=== PATIENT | female | born 1960 | race Caucasian/White ===

== ENCOUNTER 2024-02-15 13:48 | Inpatient (IN) | payer OTHER, MEDICAID ==
[~2024-02-15] VITALS: Ht 91.4 cm; Wt 80.0 kg
[2024-02-15] MEDS: SODIUM CHLORIDE 0.9% 1,000 ML IV ONE (14:30)
--- NOTE | 2024-02-15 14:30 | ED.PDOC ---
History of Present Illness(SKN HPI Comments 63 y.o female with PMH of paraplegia, heart murmur, CAD, DM, breast cancer, presents to the ED for an evaluation of a wound check s/p bilateral mastectomy on 01/04/24 at [facility]. Patient reports since surgery, she noticed swelling with pus development on both breast, worse on the left side. Patient had wound cultures taken at PCP's office recently but was told to come into the ED for higher level of care. Time Seen by MD: 14:15 History of Present Illness: Nurses Notes, Medications, Allergies Information Source: Patient Mode of Arrival: Wheelchair Severity: Moderate Timing: Days Duration: Since onset Location: Other (breast ) Mechanism: Preceding Wound (s/p mastectomy ) Object: Unknown Wound Type: Abscess Immunization Status of Animal: NA Tetanus: UTD Associated Signs and Symptoms: Swelling, Pus Past Medical History PAST MEDICAL HISTORY: CAD, Cancer (breast ), DM Past Medical History (Other): paraplegic, heart murmur Surgical History: AKA (Left ), BKA (right ) Surgical History (Other): Bilateral mastectomy 01/04/24 METAL CHECKER History: No Pertinent METAL CHECKER History Family History Family History: Reviewed,noncontributory to illness, No family hx of Cancer, No family hx of DM, No family hx of Heart yolanda, No family hx of HTN, No family hx ofKidney yolanda, No family hx of Liver yolanda, No family hx of Lung yolanda, No family hx of Stroke Social History Smoker: Non-Smoker Alcohol: Denies ETOH Use Drugs: Denies Drug Use Lives In: Home Constitutional: denies: chills, diaphoresis, fatigue, fever, malaise, sweats, weakness, others EENTM: denies: blurred vision, double vision, ear bleeding, ear discharge, ear drainage, ear pain, ear ringing, eye pain, eye redness, hearing loss, mouth pain, mouth swelling, nasal discharge, nose bleeding, nose congestion, nose pain, photophobia, tearing, throat pain, throat swelling, voice changes, others Respiratory: denies: cough, hemoptysis, orthopnea, SOB at rest, shortness of breath, SOB with excertion, stridor, wheezing, others Cardiovascular: denies: chest pain, dizzy spells, diaphoresis, Dyspnea on exertion, edema, irregular heart beat, left arm pain, lightheadedness, palpitations, PND, syncope, others Gastrointestinal: denies: abdomen distended, abdominal pain, blood streaked bowels, constipated, diarrhea, dysphagia, difficulty swallowing, hematemesis, melena, nausea, poor appetite, poor fluid intake, rectal bleeding, rectal pain, vomiting, others Genitourinary: denies: abnormal vagina bleeding, burning, dyspareunia, dysuria, flank pain, frequency, hematuria, incontinence, pain, , vagina discharge, urgency, others Neurological: denies: dizziness, fainting, headache, left sided numbness, left sided weakness, numbness, paresthesia, pre-existing deficit, right sided numbness, right sided weakness, seizure, speech problems, tingling, tremors, weakness, others Musculoskeletal: denies: back pain, gout, joint pain, joint swelling, muscle pain, muscle stiffness, neck pain, others Integumetry: reports: wounds (Bilateral breast wound ); denies: bruises, change in color, change in hair/nails, dryness, laceration, lesions, lumps, rash, ot hers Allergic/Immunocompromised: denies: Difficulty Healing, Frequent Infections, Hives, Itching, others Hematologic/Lymphatic: denies: anemia, blood clots, easy bleeding, easy bruising, swollen glands, others Endocrine: denies: excessive hunger, excessive sweating, excessive thirst, excessive urination, flushing, intolerance to cold, intolerance to heat, unexplained weight gain, unexplained weight loss, others Psychiatric: denies: anxiety, bipolar disorder, depression, hopeless, panic disorder, schizophrenia, sleepless, suicidal, others All Other Systems: Reviewed and Negative Physical Exam General Appearance: Moderate Distress HEENT: Normal ENT Inspection, Pharynx Normal, TMs Normal Neck: Full Range of Motion, Non-Tender, Normal, Normal Inspection Respiratory: Chest Non-Tender, Lungs Clear, No Accessory Muscle Use, No Respiratory Distress, Normal Breath Sounds Cardiovascular: No Edema, No JVD, No Murmur, No Gallop, Normal Peripheral Pulses, Regular Rate/Rhythm Breast Exam: Deferred Gastrointestinal: Soft Genitalia: Deferred Pelvic: Deferred Rectal: Deferred Extremities: Other (Right below-knee left above knee amputation) Musculoskeletal : Apperance: Normal Neurologic: Alert, sv[employer] II-XII nml as Tested, No Motor Deficits, Normal Affect, Normal Mood, No Sensory Deficits Cerebellar Function: Normal Reflexes: NOT DONE Skin: Wounds Peripheral Pulses: 3+ Radial (R), 3+ Radial (L) (Bilateral breast) Lymphatic: No Adenopathy Was a procedure done? Was a procedure done?: No Differential Diagnosis (INTG) Differential Diagnosis: Cellulitis, Hematoma Differential Diagnosis: Abscess Abscess: Bacteremia, Cellulitis X-Ray, Labs, Meds, VS Patient alert. Status post mastectomy. Vitals stable. History of diabetes. There is drainage from the left breast. She did have surgery at [facility]. She refuses to follow up with the surgeon that had performed the surgery. Establish intravenous access. Was given fluids pain Was given antibiotics. Reviewed her history. Explained to the patient. Continue cardiac monitoring. Time of 1ST Reevaluation: 14:25 Reevaluation 1ST: Unchanged Patient Education/Counseling: Diagnosis, Treatment, Prognosis Family Education/Counseling: No Family Present Departure 1 Departure Time of Disposition: 14:41 Impression: Primary Impression: Cellulitis Qualified Codes: L03.90 - Cellulitis, unspecified Disposition: 09 ADMITTED INPATIENT Admit to: Med Surg Condition: Guarded Critical Care Note Critical Care Time?: No Stability Stability form required: No I personally scribed for DONNY ALMONTE MD ([email or web address]) on 02/15/24 at 14:30. Electronically submitted by Lili Hook ([facility]). DONNY ALMONTE MD Feb 15, 2024 14:30
[2024-02-15] MEDS: PIPERACILLIN-TAZOB 3.375GM 100 ML IV ONE (14:45)
[2024-02-15 15:02] LABS: Basophils # (auto) 0 10 ^3/uL (0-0.2); Basophils % (auto) 0.5 % (0.0-2.0); Eosinophils # (auto) 0.1 10 ^3/uL (0-0.8); Eosinophils % (auto) 1.9 % (0.0-7.0); Hematocrit 39.3 % (36.0-46.0); Hemoglobin 12.6 g/dL (12.2-16.2); Lymphocytes # (auto) 1.4 10 ^3/uL (0.4-5.4); Lymphocytes % (auto) 21.4 % (10.0-50.0); Mean Corpuscular Hemoglobin 27.4 pg (28.0-32.0); Mean Corpuscular Hgb Conc. 32.1 g/dL (32.0-36.0); Mean Corpuscular Volume 85.4 fL (80.0-100.0); Monocytes # (auto) 0.4 10 ^3/uL (0-1.3); Monocytes % (auto) 5.8 % (0.0-12.0); Neutrophils # (auto) 4.6 10 ^3/uL (1.6-8.6); Neutrophils % (auto) 70.4 % (37.0-80.0); Nucleated Red Blood Cells % 0.1 %; Platelet Count (auto) 185 10^3/uL (140-450); Red Cell Distribution Width 14.6 % (11.8-14.3); White Blood Cell 6.5 10^3/uL (4.4-10.8)
[2024-02-15 15:10] LABS: Potassium 3.9 mmol/L (3.5-5.1); Sodium 143 mmol/L (136-145)
[2024-02-15 15:11] LABS: Anion Gap 9 (5-15); Carbon Dioxide 23 mmol/L (20-31)
[2024-02-15 15:12] LABS: Calcium 9.3 mg/dL (8.7-10.4)
[2024-02-15 15:17] LABS: BUN/Creatinine Ratio 17.7 (10.0-20.0); Blood Urea Nitrogen 11 mg/dL (9-23)
[2024-02-15 15:25] LABS: Chloride 111 mmol/L (98-107); Glucose 176 mg/dL (74-106)
[2024-02-15] MEDS: CIPROFLOXACIN 400MG/200ML 200 ML IV ONE (17:33)
[2024-02-15] MEDS ORDERED: MORPHINE SULFATE INJ 2 MG/ml SYRG IV PRN (21:15)
[2024-02-15] MEDS ORDERED: NITROGLYCERIN 0.4 MG SL TAB SL PRN (21:15)
[2024-02-15] MEDS ORDERED: ENOXAPARIN SOD 40 MG/0.4 ML SYRINGE SC SCH (21:15)
[2024-02-15] MEDS ORDERED: ACETAMINOPHEN 325 MG TAB PO PRN (21:15)
--- NOTE | 2024-02-15 21:38 | DVH ---
CHEST RADIOGRAPH Indication: Rule out pneumonia Technique: Single frontal view of the chest was obtained Comparison: 01/04/2024 report only FINDINGS: Lines and Tubes: None Lungs: Blunting of the right costophrenic angle with right lower lung zone linear density. No pneumothorax. Cardiomediastinal contours: Abnormal configuration of the cardiac silhouette. Bones: No acute osseous abnormality. IMPRESSION: Small right-sided pleural effusion with right lower lung zone atelectasis. Abnormal configuration of the cardiac silhouette. CT should be considered for further evaluation.
[2024-02-15 22:15] LABS: Albumin 3.4 g/dL (3.2-4.8); Alkaline Phosphatase 106 U/L (46-116); Anion Gap 7 (5-15); Aspartate Aminotransferase 14 U/L (13-40); BUN/Creatinine Ratio 21.4 (10.0-20.0); Bilirubin, Total 0.4 mg/dL (0.2-1.0); Blood Alcohol 3.8 mg/dL (<10); Blood Urea Nitrogen 12 mg/dL (9-23); Calcium 8.9 mg/dL (8.7-10.4); Carbon Dioxide 24 mmol/L (20-31); Glucose 93 mg/dL (74-106); Magnesium 1.6 mg/dL (1.6-2.6); Potassium 3.6 mmol/L (3.5-5.1); Sodium 145 mmol/L (136-145); Total Protein 6.1 g/dL (5.7-8.2)
[2024-02-15 22:24] LABS: Alanine Aminotransferase < 9 U/L (7-40); Chloride 114 mmol/L (98-107)
--- NOTE | 2024-02-15 22:44 | DVHHPRES ---
History of Present Illness Resident Creating Document: NOE SALAZAR RESIDENT History of Present Illness Patient is 63 years old female with past medical history of hypertension, diabetes mellitus type 2, hyperlipidemia, paraplegia, pulmonary embolism on Eliquis, heart murmur, carcinoma of the right breast, status post bilateral mastectomy with lymphadenectomy, history of syringomyelia with cervical 5 and thoracic 9 and 10 cyst came with a complaint of bilateral breast wound discharge. As per patient she had bilateral mastectomy due to carcinoma of the right breast with lymphadenectomy at [facility] on 01/04/2024. Following surgery she had 2 drainage of the right breast and 1 drinks in the left. Patient reported lately the left breast started having more swollen, warmth, wheezing versus for last several days and the right 1 was with mild wheezing but no acute swelling for last 2 days. Patient also reported fever, 101 F for last 3 days with chills and rigors. Patient denied any chest pain, shortness of breath, dysuria, dysarthria or change in vision. Patient reported that Dr. Jon brooke was her surgeon and she does not want to follow up with her surgeon at [place] that is why she came to [facility]. Initial lab workup revealed WBC 6.5, hemoglobin 12.6, sodium 143, potassium 3.9, serum creatinine 0.62, serum glucose 176, lactic acid 2, magnesium 1.6 TSH 0.89, total bilirubin/AST/ALT/alkaline phosphatase within normal limit.,: 3.8, D-dimer 0.59. CXR-Small right-sided pleural effusion with right lower lung zone atelectasis. Patient reported that Dr. Jon brooke was her surgeon and she does not want to follow up with her surgeon at [place] that is why she came to [facility]. 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 Cardiovascular- deny acute chest pain or shortness of breath or cough or palpitation Respiratory- denies cough or short of breath or wheezing Chest-patient with s/p, bilateral mastectomy, scar farida due to bilateral mastectomy, wound dehiscence on the right lateral chest wall, left breast region swollen, with purulent discharge, warm, mild tender to touch, with some scar tissue Gastrointestinal- denies any rectal bleeding, nausea or vomiting -lower extremit-right above-left leg above-knee amputation, right leg below-knee amputation Musculoskeletal-denies acute joint swelling or tenderness or redness Neurological- denies acute dysarthria, dysphagia, change in vision Psychiatry- denies depression or SI or HI Skin- denies acute rash or purpura Allergies: Coded Allergies: Bacitracin (Verified Allergy, Unknown, 02/15/24) Benzoin (Verified Allergy, Unknown, 02/15/24) Carisoprodol (Verified Allergy, Unknown, 02/15/24) Morphine (Verified Allergy, Unknown, 02/15/24) Penicillins (Verified Allergy, Unknown, 02/15/24) Sulfanilamide (Verified Allergy, Unknown, 02/15/24) Trimethoprim (Verified Allergy, Unknown, 02/15/24) Vancomycin (Verified Allergy, Unknown, 02/15/24) Uncoded Allergies: SULFA (Allergy, Unknown, 02/15/24) Medications Current Medications Medications Dose Ordered Sig/Justino Route Start Time Stop Time Status Last Admin Dose Admin Sodium Chloride 10 ml Q8HR IV 02/15/24 22:00 Ondansetron HCl 4 mg Q4HP PRN IV 02/15/24 21:15 Docusate Sodium 100 mg BIDPRN PRN PO 02/15/24 21:15 Acetaminophen 650 mg Q6HP PRN PO 02/15/24 21:15 Enoxaparin Sodium 40 mg DAILY SC 02/15/24 21:15 Nitroglycerin 0.4 mg Q5MINP PRN SL 02/15/24 21:15 Morphine Sulfate 2 mg Q30M PRN IV 02/15/24 21:15 Hold Exam Vital Signs Vital Signs Date Time Temp Pulse Resp B/P (MAP) Pulse Ox O2 Delivery O2 Flow Rate FiO2 12/12/24 20:43 98.2 101 16 134/59 (53) 96 98.2 Exam General examination- HEENT- PEERLA, no acute nasal discharge Cardiovascular- S1-S2 audible, rate and rhythm regular, no murmur Respiratory- CTAB, no wheeze or rhonchi Gastrointestinal-nontender, bowel sound+. Nondistended Musculoskeletal-no acute joint swelling or tenderness or redness# Lower extremity- Neurological- cranial nerves intact, no acute dysarthria or dysphagia Psychiatry- denies depression or SI or HI Skin- no acute rash or purpura Labs/Xrays Labs Test 02/15/24 21:33 02/15/24 14:45 Range/Units D-Dimer, Quantitative 0.59 H 0.0-0.49 mg/L FEU Sodium Level 145 136-145 mmol/L Potassium Level 3.6 3.5-5.1 mmol/L Chloride Level 114 H 98-107 mmol/L Carbon Dioxide Level 24 20-31 mmol/L Anion Gap 7 5-15 Blood Urea Nitrogen 12 9-23 mg/dL Creatinine 0.56 0.550-1.02 mg/dL Glomerular Filtration Rate Calc 101 >90 mL/min BUN/Creatinine Ratio 21.4 H 10.0-20.0 Serum Glucose 93 74-106 mg/dL Calcium Level 8.9 8.7-10.4 mg/dL Magnesium Level 1.6 1.6-2.6 mg/dL Total Bilirubin 0.4 0.2-1.0 mg/dL Aspartate Amino Transferase (AST) 14 13-40 U/L Alanine Aminotransferase (ALT) < 9 7-40 U/L Alkaline Phosphatase 106 46-116 U/L Total Protein 6.1 5.7-8.2 g/dL Albumin 3.4 3.2-4.8 g/dL Thyroid Stimulating Hormone (TSH) 0.89 0.55-4.78 uIU/mL Plasma/Serum Blood Alcohol 3.8 <10 mg/dL White Blood Count 6.5 4.4-10.8 10^3/uL Red Blood Count 4.60 4.0-5.20 10^6/uL Hemoglobin 12.6 12.2-16.2 g/dL Hematocrit 39.3 36.0-46.0 % Mean Corpuscular Volume 85.4 80.0-100.0 fL Mean Corpuscular Hemoglobin 27.4 L 28.0-32.0 pg Mean Corpuscular Hemoglobin Concent 32.1 32.0-36.0 g/dL Red Cell Distribution Width 14.6 H 11.8-14.3 % Platelet Count 185 140-450 10^3/uL Mean Platelet Volume 7.4 6.9-10.8 fL Neutrophils (%) (Auto) 70.4 37.0-80.0 % Lymphocytes (%) (Auto) 21.4 10.0-50.0 % Monocytes (%) (Auto) 5.8 0.0-12.0 % Eosinophils (%) (Auto) 1.9 0.0-7.0 % Basophils (%) (Auto) 0.5 0.0-2.0 % Neutrophils # (Auto) 4.6 1.6-8.6 10 ^3/uL Lymphocytes # (Auto) 1.4 0.4-5.4 10 ^3/uL Monocytes # (Auto) 0.4 0-1.3 10 ^3/uL Eosinophils # (Auto) 0.1 0-0.8 10 ^3/uL Basophils # (Auto) 0 0-0.2 10 ^3/uL Nucleated Red Blood Cells 0.1 % Lactic Acid Level 2.0 0.4-2.0 mmol/L Assessment/Plan Assessment/Plan #Post surgical wound infection/abscess of the left breast and right breast wound days since -status post bilateral mastectomy with lymphadenectomy at [facility] on 01/04/[address] Jon brooke -patient do not want to see her previous surgeon Dr. Jon brooke, that is why she came to [facility] -pending wound culture, blood culture -ordered surgery consult for further evaluation and care -ordered CT chest with contrast for further evaluation and care --continue meropenem 1 g IV q.8h -continue doxycycline 100 mg IV b.i.d. # history of right breast carcinoma, -status post bilateral mastectomy with lymphadenectomy -post surgical wound infection with wound dehiscence -ordered surgery consult for further evaluation and care -pending wound culture and blood culture -continue current management # Cystic Structure along Pancreas - Need outpatient MRI Abd Pancreatric Protocol, as outpatient # hypertension -continue diltiazem b.i.d. -continue carvedilol 3.125 mg p.o. b.i.d. -continue losartan 50 mg p.o. daily # hyperlipidemia -continue atorvastatin 10 mg daily q.h.s. # diabetes mellitus -patient reported her A1c was 6.9 at [facility] -continue insulin sliding scale as prescribed # paraplegia from complication from syringomyelia -follow up outpatient # history of pulmonary embolism -continue Eliquis 5 mg b.i.d. # history of heart murmur/cardiac disease -order echo 2D for further evaluation and care Goals of care/advance care planning; FULL CODE; discussed with the patient >15 minutes PUD prophylaxis: Pantoprazole DVT prophylaxis: Lovenox Plan discussed with Dr. Henry, nursing staff, patient Total time spent on patient evaluation, chart review, assessment and plan, disc ussion discussion >30 minutes Plan discussed with: Patient Plan discussed with: Patient, Other (RN) My Orders Orders - NOE SALAZAR RESIDENT Procedure Category Date Status Time Code Status CODE 02/15/24 Transmitted 21:06 Sodium Chloride Lock PHA 02/15/24 In Process (Saline Lock Ns) 22:00 Ondansetron Hcl PHA 02/15/24 In Process (Zofran) 21:15 Docusate Sodium PHA 02/15/24 In Process Capsule (Colace 21:15 Complete Blood Count LAB 02/16/24 Verified 04:00 Comprehensive LAB 02/16/24 Verified Metabolic Panel 04:00 Cardiac DIET 02/16/24 Transmitted Diet-2gna,Lofat,Lochol Breakfast Acetaminophen Tablet PHA 02/15/24 In Process (Tylenol Tablet) 21:15 Enoxaparin Sodium PHA 02/15/24 In Process (Lovenox) 21:15 Nitroglycerin PHA 02/15/24 In Process Sublingual (Ntrostat 21:15 Morphine Sulfate PHA 02/15/24 In Process Injection 21:15 Oxygen By Nasal RT 02/15/24 Transmitted Cannula 21:06 Stat Ekg For Chest JOSE ARMANDO 02/15/24 In Process Pain 21:06 Notify Of Changes JOSE ARMANDO 02/15/24 In Process From Base 21:06 Sap Portal Architect For JOSE ARMANDO 02/15/24 In Process 24 Hours 21:06 Rhythm Strips Once JOSE ARMANDO 02/15/24 In Process Every Shift 21:06 Wound Culture W/ Gs YOSEF 02/15/24 Logged 21:06 Chest Xray 1 View XY 02/15/24 Resulted 21:06 Urinalysis LAB 02/15/24 Logged 21:06 Drug Screen LAB 02/15/24 Logged 21:06 Date of Service: Feb 15, 2024 Billing Provider: RAMBO HENRY MD Common Visit Codes: 00210-IACVABY INP/OBS CARE (HIGH) Secondary Visit Codes: 86635-[id number] CARE PLAN 30 MINUTES NOE SALAZAR RESIDENT Feb 15, 2024 22:44 RAMBO HENRY MD Feb 18, 2024 18:39
[2024-02-15] MEDS ORDERED: IBUPROFEN 600 MG TAB PO PRN ×2 (22:45→23:00)
[2024-02-15] MEDS ORDERED: DOXYCYCLINE 100MG/250ML 250 ML IV SCH ×2 (22:45→23:00)
[2024-02-15] MEDS ORDERED: DOXYCYCLINE 100MG/250ML 250 ML IV ONE (22:45)
[2024-02-15] MEDS ORDERED: VANCOMYCIN PER PHARMACY 0 MG IV SCH (22:45)
[2024-02-15] MEDS ORDERED: INSU100I52 SC (23:07)
[2024-02-15] MEDS ORDERED: CARV3.1240 PO (23:07)
[2024-02-15] MEDS ORDERED: DILT30TA PO (23:07)
[2024-02-15] MEDS ORDERED: ATOR10TA52 PO (23:07)
[2024-02-15] MEDS ORDERED: APIX5TAB PO (23:07)
[2024-02-15] MEDS ORDERED: LOSA-534 PO (23:07)
[2024-02-15] MEDS ORDERED: INSLANTI SC (23:07)
[2024-02-15] MEDS: SODIUM CHLOR 0.9% PF (SALINE LOCK) 10ML VIAL/SYR IV SCH (23:09)
[2024-02-16 00:31] VITALS: BP 132/51; PULSE 91; RESP 18; TEMP 97.4; O2SAT 97
[2024-02-16] MEDS: DOXYCYCLINE 100MG/250ML 250 ML IV ONE (00:43)
[2024-02-16] MEDS ORDERED: DEXTROSE (50%) 50ML SYRG IV PRN ×2 (02:45→03:00)
[2024-02-16 04:34] LABS: Basophils # (auto) 0 10 ^3/uL (0-0.2); Basophils % (auto) 0.5 % (0.0-2.0); Eosinophils # (auto) 0.2 10 ^3/uL (0-0.8); Eosinophils % (auto) 3.2 % (0.0-7.0); Hematocrit 27.4 % (36.0-46.0); Lymphocytes # (auto) 1.3 10 ^3/uL (0.4-5.4); Lymphocytes % (auto) 24.7 % (10.0-50.0); Mean Corpuscular Hemoglobin 27.8 pg (28.0-32.0); Mean Corpuscular Hgb Conc. 32.7 g/dL (32.0-36.0); Mean Corpuscular Volume 84.8 fL (80.0-100.0); Monocytes # (auto) 0.4 10 ^3/uL (0-1.3); Monocytes % (auto) 7.3 % (0.0-12.0); Neutrophils # (auto) 3.5 10 ^3/uL (1.6-8.6); Neutrophils % (auto) 64.3 % (37.0-80.0); Nucleated Red Blood Cells % 0.1 %; Platelet Count (auto) 150 10^3/uL (140-450); Red Blood Cells 3.23 10^6/uL (4.0-5.20); Red Cell Distribution Width 14.3 % (11.8-14.3); White Blood Cell 5.4 10^3/uL (4.4-10.8)
[2024-02-16 04:49] LABS: Alkaline Phosphatase 90 U/L (46-116); Anion Gap 9 (5-15); BUN/Creatinine Ratio 28.9 (10.0-20.0); Blood Urea Nitrogen 11 mg/dL (9-23); Carbon Dioxide 22 mmol/L (20-31); Glucose 100 mg/dL (74-106)
[2024-02-16 04:51] LABS: Alanine Aminotransferase < 9 U/L (7-40); Aspartate Aminotransferase 9 U/L (13-40); Bilirubin, Total 0.3 mg/dL (0.2-1.0); Calcium 7.9 mg/dL (8.7-10.4); Chloride 117 mmol/L (98-107); Potassium 3.1 mmol/L (3.5-5.1); Sodium 148 mmol/L (136-145); Total Protein 5.1 g/dL (5.7-8.2)
[2024-02-16] MEDS ORDERED: MORPHINE SULFATE INJ 2 MG/ml SYRG IV PRN (05:45)
[2024-02-16] MEDS ORDERED: NITROGLYCERIN 0.4 MG SL TAB SL PRN (05:45)
[2024-02-16] MEDS ORDERED: PANTOPRAZOLE 40 MG TAB PO SCH (06:00)
[2024-02-16] MEDS ORDERED: MEROPENEM 1GM IVPB 50 ML IV SCH ×2 (06:00→06:15)
[2024-02-16] MEDS ORDERED: InsuLIN REG 1unit/0.01ml Soln (100units/ml) SC SCH (07:00)
[2024-02-16] MEDS: InsuLIN REG 1unit/0.01ml Soln (100units/ml) SC SCH (07:00)
[2024-02-16] MEDS: ACCU-CHEK COMFORT CURVE STRIP VI SCH (07:00)
[2024-02-16] MEDS ORDERED: ACCU-CHEK COMFORT CURVE STRIP VI SCH (07:00)
[2024-02-16 08:00] VITALS: PULSE 120; RESP 17; O2SAT 95
[2024-02-16] MEDS: ONDANSETRON HCL 4 MG/2 ML VIAL ONE ×2 (08:03→20:47)
--- NOTE | 2024-02-16 08:37 | DVH ---
Bilateral Chest Sonogram Clinical history: EVAL FOR PLEURAL EFFUSION Technique: Limited sonographic evaluation of the right and left chest was performed. Findings/Impression: There is a no pleural effusion.
[2024-02-16 08:43] LABS: Phosphorus 3.2 mg/dL (2.4-5.1)
[2024-02-16 08:49] LABS: INR 1.36 (0.9-1.15); Magnesium 1.5 mg/dL (1.6-2.6); Partial Thromboplastin Time 33.3 SEC (24.5-34.5); Prothrombin Time 14.1 sec (9.3-11.8)
[2024-02-16] MEDS: HYDROmorphone HCL 2 MG/ML VL/or syr IV ONE (09:13)
[2024-02-16] MEDS: HYDROMORPHONE HCL 1 MG/ML INJ IV ONE (09:17)
[2024-02-16] MEDS: ONDANSETRON HCL 4 MG/2 ML VIAL IV PRN (09:18)
[2024-02-16] MEDS: MAGNESIUM SULFATE 1GM/100ML 100 ML IV ONE ×2 (09:44→09:45)
[2024-02-16] MEDS: DOXYCYCLINE 100MG/250ML 250 ML IV SCH (09:44)
[2024-02-16] MEDS: SODIUM CHLORIDE 0.9% 1,000 ML IV SCH (09:44)
[2024-02-16 09:51] LABS: Amphetamine Screen, Urine Neg (NEGATIVE); Barbiturate Scree,Urine Neg (NEGATIVE); Benzodiazephine Screen, Urine Neg (NEGATIVE); Cocaine Screen, Urine Neg (NEGATIVE); Opiate Scree,Urine Neg (NEGATIVE); Phencyclidine Screen, Urine Neg (NEGATIVE)
[2024-02-16 09:52] LABS: Cannabinoid Screen, Urine Pos (NEGATIVE)
[2024-02-16] MEDS: INSULIN LANTUS (GLARGINE) 1 /0.01ml (100units/ml) SC SCH (10:00)
[2024-02-16] MEDS ORDERED: CARVEDILOL 3.125 MG TAB PO SCH (10:00)
[2024-02-16] MEDS ORDERED: LOSARTAN POTASSIUM 50 MG TAB PO SCH (10:00)
[2024-02-16] MEDS ORDERED: PATIENTS OWN MEDICATION (Atorvastatin Calcium 1 TAB) PO SCH (10:00)
[2024-02-16] MEDS ORDERED: INSULIN LANTUS (GLARGINE) 1 /0.01ml (100units/ml) SC SCH (10:00)
[2024-02-16] MEDS ORDERED: dilTIAZem HCL 60 MG TAB PO SCH (10:00)
[2024-02-16] MEDS ORDERED: DILTIAZEM HCL PO SCH (10:00)
[2024-02-16] MEDS ORDERED: APIXABAN 5 MG TAB PO SCH ×2 (10:00)
[2024-02-16 10:12] LABS: Urine Bacteria MANY /hpf (None Seen); Urine Blood 3+ /uL (Negative); Urine Clarity Cloudy (Clear); Urine Color Yellow (Yellow); Urine Protein, UAD 1+ (Negative); Urine Squamous Epithelial Cell FEW /hpf (<5); Urine Urobilinogen Normal (Negative); Urine WBC 125 /hpf (0 - 5); Urine WBC Clumps PRESENT /hpf (None Seen); Urine pH 7.5 (5.0-9.0)
[2024-02-16] MEDS: CARVEDILOL 3.125 MG TAB PO SCH (10:24)
[2024-02-16] MEDS: LOSARTAN POTASSIUM 50 MG TAB PO SCH (10:35)
[2024-02-16] MEDS: IOHEXOL 300 MG/ML 100ML BOTTLE IJ ONE (10:35)
[2024-02-16] MEDS: POTASSIUM EFFERVESENT TAB 25 MEQ GT ONE (10:35)
--- NOTE | 2024-02-16 11:02 | DVH ---
Procedure: CT CHEST WITH CONTRAST Reason for study/Clinical History: mastectomy with breast abscess. Comparison Study: None available at time of dictation. Exam Date: 02/16/2024 09:52 AM Radiation Dose Information: CT Dose: CTDI volume is 7.35 mGy. Dose-length product is 254.53 mGy*cm TECHNIQUE: After the uneventful administration of intravenous contrast intravenously, CT imaging was performed through the chest. Coronal and sagittal reformations were performed by the technologist. 10 0 cc of Omnipaque 300 contrast was injected intravenously. All CT scans at this medical facility are performed using dose modulation techniques as appropriate t o a performed exam including the following:Automated exposure control was utilized; adjustment of the MA and/or KV according to patient size; and use of iterative reconstruction technique. FINDINGS: Lungs/pleura: There is pleural thickening with scattered pleural calcifications in the left rogerio thor ax. There is pleural-parenchymal scarring in the left lower lobe with left lung volume loss. There is also pleural thickening with calcifications along the anterolateral right middle lobe. There is pleu ral-parenchymal scarring in the right lower lobe. There is no area of lung consolidation. There is no pleural effusion or pneumothorax. Aorta and Vasculature: Normal caliber of thoracic aorta. Lymph Nodes: No enlarged intrathoracic lymph nodes. Mediastinum: Heart size is normal. There is no pericardial effusion. The esophagus is unremarkable. Upper abdomen: There is a nonspecific 2.0 cm cystic structure along the anterior body of the pancreas .. Gallbladder is surgically absent. There is a amaru-gh-fykvjczg size hiatal hernia. Musculoskeletal: There is dextroconvex scoliosis of the lumbar spine. There is severe compression def ormity of the T10 vertebral body. There is no obvious suspicious appearing lytic or sclerotic lesion. Soft tissues: There is a 3.6 x 8.0 cm cystic collection with enhancing gonzalez in the left breast. The re is overlying skin thickening. There are postsurgical changes related to right mastectomy. IMPRESSION: 1. 3.6 x 8.0 cm cystic collection with enhancing gonzalez in the left breast. There is overlying skin t hickening. An abscess is not excluded.. Clinical correlation is recommended. Ultrasound-guided aspir ation be performed if clinically indicated. 2. There is pleural thickening with scattered pleural calcifications in the left rogerio thorax. There is lesser degree of pleural thickening with calcifications along the anterolateral right middle lobe. There is pleural-parenchymal scarring in the bilateral lower lungs. There is no evidence of lung con solidation. There is no evidence of pleural effusion or pneumothorax. 3. Nonspecific 2.0 cm cystic structure along the anterior body of the pancreas. Further evaluation wi dedicated CT abdomen and pelvis with contrast is recommended. 4. Severe compression deformity of the T10 vertebral body. HS:Y
--- NOTE | 2024-02-16 11:28 | DVHPN2 ---
Subjective The patient is seen and examined at bedside. The patient is still have severe pain in her breast area. Reviewed: Care Plan, H&P, Labs, Medications, Previous Orders, Radiology Changes from previous H/P or p: No Changes Objective Vitals Vital Signs Date Time Temp Pulse Resp B/P (MAP) Pulse Ox O2 Delivery O2 Flow Rate FiO2 02/16/24 11:24 98 117/44 02/16/24 09:43 17 02/16/24 06:20 97.8 95 97.8 02/15/24 23:12 Room Air General Appearance: Alert, Oriented X3, Cooperative, No acute distress HEENT: Atraumatic, PERRLA, EOMI, Mucous membr. moist/pink Neck: Supple Chest/Breasts: Discharge, Lesions Cardiovascular: Regular rate, Normal S1, Normal S2, No murmurs, Gallops, Rubs Abdomen: Normal bowel sounds, Soft, No tenderness Neuro: Cranial nerves 3-12 NL Psych/Mental Status: Mood NL Medications Current Medications Medications Dose Ordered Sig/Justino Route Start Time Stop Time Status Last Admin Dose Admin Sodium Chloride 10 ml Q8HR IV 02/15/24 22:00 02/16/24 06:00 10 ML Ondansetron HCl 4 mg Q4HP PRN IV 02/15/24 21:15 02/16/24 09:18 4 MG Docusate Sodium 100 mg BIDPRN PRN PO 02/15/24 21:15 Acetaminophen 650 mg Q6HP PRN PO 02/15/24 21:15 Vancomycin HCl 0 ml @ 0 mls/hr UD IV 02/15/24 22:45 UNV Nitroglycerin 0.4 mg Q5MINP PRN SL 02/16/24 05:45 Insulin Glargine 12 units DAILY SC 02/16/24 10:00 Insulin Human Regular ACHS SC 02/16/24 07:00 Dextrose 50 ml UD PRN IV 02/16/24 03:00 Meropenem 50 ml @ 17 mls/hr Q8HR IV 02/16/24 06:15 Hold Ibuprofen 600 mg Q6HP PRN PO 02/15/24 23:00 Carvedilol 3.125 mg BID PO 02/16/24 10:00 02/16/24 10:24 3.125 MG Losartan Potassium 50 mg DAILY PO 02/16/24 10:00 02/16/24 10:35 50 MG Pantoprazole Sodium 40 mg DAILY@0600 PO 02/16/24 06:15 Atorvastatin Calcium 10 mg HS PO 02/16/24 22:00 Diagnostic Test (Pha) 1 strip ACHS 02/16/24 07:00 02/16/24 07:00 1 STRIP Sodium Chloride 1,000 ml @ 75 mls/hr [id number] IV 02/16/24 09:30 02/16/24 09:44 75 MLS/HR Doxycycline Hyclate 250 ml @ 125 mls/hr Q12H IV 02/16/24 10:00 02/16/24 09:44 125 MLS/HR Laboratory Results Laboratory Tests 02/16/24 04:21 Chemistry Test 02/15/24 14:45 02/15/24 21:33 02/16/24 04:21 Calcium Level 9.3 mg/dL (8.7-10.4) 8.9 mg/dL (8.7-10.4) 7.9 mg/dL (8.7-10.4) L Albumin 3.4 g/dL (3.2-4.8) 3.0 g/dL (3.2-4.8) L Magnesium Level 1.6 mg/dL (1.6-2.6) 1.5 mg/dL (1.6-2.6) L Total Protein 6.1 g/dL (5.7-8.2) 5.1 g/dL (5.7-8.2) L Phosphorus Level 3.2 mg/dL (2.4-5.1) Coagulation Test 02/15/24 21:33 02/16/24 04:21 D-Dimer, Quantitative 0.59 mg/L FEU (0.0-0.49) H Prothrombin Time 14.1 sec (9.3-11.8) H Prothrombin Time INR 1.36 (0.9-1.15) H Activated Partial Thromboplast Time 33.3 SEC (24.5-34.5) Lipid panel Test 02/16/24 04:21 Cholesterol Level 71 mg/dL (< 200) HDL Cholesterol 18 mg/dL (40-59) L Triglycerides Level 105 mg/dL (< 150) LFT Test 02/15/24 21:33 02/16/24 04:21 Alanine Aminotransferase (ALT) < 9 U/L (7-40) < 9 U/L (7-40) Alkaline Phosphatase 106 U/L (46-116) 90 U/L (46-116) Aspartate Amino Transferase (AST) 14 U/L (13-40) 9 U/L (13-40) L Total Bilirubin 0.4 mg/dL (0.2-1.0) 0.3 mg/dL (0.2-1.0) HgA1c, TSH Test 02/15/24 21:33 02/16/24 04:21 Thyroid Stimulating Hormone (TSH) 0.89 uIU/mL (0.55-4.78) Hemoglobin A1c 6.9 % A1C (<5.7) H Urinalysis Test 02/16/24 09:00 Urine Color Yellow (Yellow) Urine Clarity Cloudy (Clear) H Urine pH 7.5 (5.0-9.0) Urine Specific [place] 1.010 (1.001-1.035) Urine Protein 1+ (Negative) H Urine Ketones Negative (Negative) Urine Blood 3+ /uL (Negative) H Urine Nitrite Negative (Negative) Urine Bilirubin Negative (Negative) Urine Urobilinogen Normal mg/dL (Negative) Urine Leukocyte Esterase 3+ /uL (Negative) Urine RBC 131 /hpf (0 - 4) Urine WBC 125 /hpf (0 - 5) Urine WBC Clumps Present /hpf (None Seen) Urine Squamous Epithelial Cells Few /hpf (<5) Urine Bacteria Many /hpf (None Seen) H Urine Glucose Normal mg/dL (Normal) Labs and/or images reviewed: Labs reviewed by me Assessment/Plan Assessment/Plan Severe hypernatremia suspect secondary to decreased fluid intake Acute kidney injury suspected secondary to vasomotor nephropathy Seizure disorder Developmental delay Plan: Continuing current management. Continuing with fluid resuscitation. We will monitor seizure. We will monitor kidney function. We will get the patient out of bed and ambulate with physical therapy when she is more stable. Plan discussed with: Patient Date of Service: Feb 16, 2024 Billing Provider: ARIES LANDRY MD Common Visit Codes: [id number] INP/OBS CARE(HIGH) ARIES LANDRY MD Feb 16, 2024 11:28
[2024-02-16] MEDS ORDERED: HYDROmorphone HCL 2 MG/ML VL/or syr IV SCH (14:30)
[2024-02-16] MEDS ORDERED: HYDROmorphone HCL 2 MG/ML VL/or syr IV PRN ×2 (14:45)
[2024-02-16] MEDS: HYDROmorphone HCL 2 MG/ML VL/or syr IV PRN (15:01)
[2024-02-16 16:19] VITALS: BP 162/60; PULSE 93; PULSE 94; RESP 18; TEMP 97.3; O2SAT 94; O2SAT 95
[2024-02-16 17:05] VITALS: BP 162/60; PULSE 94; RESP 18; TEMP 97.3; O2SAT 93
[2024-02-16 20:00] VITALS: RESP 18
[2024-02-16] MEDS: ATORVASTATIN 20 MG TAB PO SCH (21:49)
[2024-02-17] VITALS (8 sets, daily range): BP systolic 102–156; BP diastolic 37–84; PULSE 88–104; RESP 17–20; TEMP 97.6–98.9; O2SAT 92–97
[2024-02-17] MEDS: PANTOPRAZOLE 40 MG TAB PO SCH (06:24)
--- NOTE | 2024-02-17 10:31 | DVHPN2 ---
Subjective The patient is seen and examined at bedside. The patient is still have severe pain in her breast area. Reviewed: Care Plan, H&P, Labs, Medications, Previous Orders, Radiology Changes from previous H/P or p: No Changes Objective Vitals Vital Signs Date Time Temp Pulse Resp B/P (MAP) Pulse Ox O2 Delivery O2 Flow Rate FiO2 02/17/24 09:41 116/54 02/17/24 09:41 90 02/17/24 09:06 97.9 18 96 97.9 02/17/24 07:46 Room Air* 0 21 Intake/Output Intake and Output 02/17/24 07:00 Intake Total 1810 ml Output Total 1250 ml Balance 560 ml Intake Oral 760 ml IV Total 1050 ml Output Urine Total 1250 ml General Appearance: Alert, Oriented X3, Cooperative, No acute distress HEENT: Atraumatic, PERRLA, EOMI, Mucous membr. moist/pink Neck: Supple Chest/Breasts: Discharge, Lesions Cardiovascular: Regular rate, Normal S1, Normal S2, No murmurs, Gallops, Rubs Abdomen: Normal bowel sounds, Soft, No tenderness Neuro: Cranial nerves 3-12 NL Psych/Mental Status: Mood NL Medications Current Medications Medications Dose Ordered Sig/Justino Route Start Time Stop Time Status Last Admin Dose Admin Sodium Chloride 10 ml Q8HR IV 02/15/24 22:00 02/17/24 05:57 10 ML Ondansetron HCl 4 mg Q4HP PRN IV 02/15/24 21:15 02/16/24 20:46 4 MG Docusate Sodium 100 mg BIDPRN PRN PO 02/15/24 21:15 Acetaminophen 650 mg Q6HP PRN PO 02/15/24 21:15 Vancomycin HCl 0 ml @ 0 mls/hr UD IV 02/15/24 22:45 UNV Nitroglycerin 0.4 mg Q5MINP PRN SL 02/16/24 05:45 Insulin Glargine 12 units DAILY SC 02/16/24 10:00 Insulin Human Regular ACHS SC 02/16/24 07:00 02/17/24 06:15 3 UNITS Dextrose 50 ml UD PRN IV 02/16/24 03:00 Meropenem 50 ml @ 17 mls/hr Q8HR IV 02/16/24 06:15 Hold Ibuprofen 600 mg Q6HP PRN PO 02/15/24 23:00 Carvedilol 3.125 mg BID PO 02/16/24 10:00 02/16/24 21:49 3.125 MG Losartan Potassium 50 mg DAILY PO 02/16/24 10:00 02/16/24 10:35 50 MG Pantoprazole Sodium 40 mg DAILY@0600 PO 02/16/24 06:15 02/17/24 06:24 40 MG Atorvastatin Calcium 10 mg HS PO 02/16/24 22:00 02/16/24 21:49 10 MG Diagnostic Test (Pha) 1 strip ACHS 02/16/24 07:00 02/17/24 06:14 1 STRIP Sodium Chloride 1,000 ml @ 75 mls/hr [id number] IV 02/16/24 09:30 02/16/24 21:50 75 MLS/HR Doxycycline Hyclate 250 ml @ 125 mls/hr Q12H IV 02/16/24 10:00 02/17/24 09:41 125 MLS/HR Hydromorphone HCl 0.25 mg Q6HPRN PRN IV 02/16/24 15:00 02/17/24 07:37 0.25 MG Laboratory Results Laboratory Tests 02/16/24 04:21 Urinalysis Test 02/16/24 09:00 Urine Color Yellow (Yellow) Urine Clarity Cloudy (Clear) H Urine pH 7.5 (5.0-9.0) Urine Specific [place] 1.010 (1.001-1.035) Urine Protein 1+ (Negative) H Urine Ketones Negative (Negative) Urine Blood 3+ /uL (Negative) H Urine Nitrite Negative (Negative) Urine Bilirubin Negative (Negative) Urine Urobilinogen Normal mg/dL (Negative) Urine Leukocyte Esterase 3+ /uL (Negative) Urine RBC 131 /hpf (0 - 4) Urine WBC 125 /hpf (0 - 5) Urine WBC Clumps Present /hpf (None Seen) Urine Squamous Epithelial Cells Few /hpf (<5) Urine Bacteria Many /hpf (None Seen) H Urine Glucose Normal mg/dL (Normal) Microbiology Microbiology Date/Time Source Procedure Growth Status 02/15/24 14:45 Blood Blood Culture - Preliminary NO GROWTH AFTER 24 HOURS OF INCUBATION. Resulted Assessment/Plan Assessment/Plan #Post surgical wound infection/abscess of the left breast and right breast wound days since -status post bilateral mastectomy with lymphadenectomy at [facility] on 01/04/[address] Jon brooke -patient do not want to see her previous surgeon Dr. Jon brooke, that is why she came to [facility] -pending wound culture, blood culture -ordered surgery consult for further evaluation and care -ordered CT chest with contrast for further evaluation and care --continue meropenem 1 g IV q.8h -continue doxycycline 100 mg IV b.i.d. # history of right breast carcinoma, -status post bilateral mastectomy with l ymphadenectomy -post surgical wound infection with wound dehiscence -ordered surgery consult for further evaluation and care -pending wound culture and blood culture -continue current management # hypertension -continue diltiazem b.i.d. -continue carvedilol 3.125 mg p.o. b.i.d. -continue losartan 50 mg p.o. daily # hyperlipidemia -continue atorvastatin 10 mg daily q.h.s. 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 # history of heart murmur/cardiac disease -order echo 2D for further evaluation and care Appreciate surgery input. Waiting for IR for drainage. Plan discussed with: Patient My Orders Orders - ARIES LANDRY MD Procedure Category Date Status Time Hydromorphone PHA 02/16/24 In Process Injection (Dilaudid 15:00 Date of Service: Feb 17, 2024 Billing Provider: ARIES LANDRY MD Common Visit Codes: [id number] INP/OBS CARE(HIGH) ARIES LANDRY MD Feb 17, 2024 10:31
--- NOTE | 2024-02-17 10:50 | DVHINCON2 ---
Date of service: Feb 17, 2024 Family History: Malignant neoplasm of breast G8 MOTHER Allergies: Coded Allergies: Bacitracin (Verified Allergy, Unknown, 02/15/24) Benzoin (Verified Allergy, Unknown, 02/15/24) Carisoprodol (Verified Allergy, Unknown, 02/15/24) Morphine (Verified Allergy, Unknown, 02/15/24) Penicillins (Verified Allergy, Unknown, 02/15/24) Sulfanilamide (Verified Allergy, Unknown, 02/15/24) Trimethoprim (Verified Allergy, Unknown, 02/15/24) Vancomycin (Verified Allergy, Unknown, 02/15/24) Uncoded Allergies: OPIOIDS (Allergy, Unknown, 02/15/24) SULFA (Allergy, Unknown, 02/15/24) Home Meds Reported Medications Insulin Glargine (Lantus) 100 Unit/Ml Inj, 12 UNIT SC DAILY 02/15/24 Diltiazem Hcl (Diltiazem Hcl) 30 Mg Tab, 1 TAB PO BID 02/15/24 Losartan Potassium (Losartan Potassium) 50 Mg Tab, 1 TAB PO DAILY 02/15/24 Apixaban Base (ELIQUIS) 5 Mg Tab, 1 TAB PO BID 02/15/24 Insulin Lispro (Insulin Lispro) 100 Unit/Ml Inj, SC 02/15/24 Atorvastatin Calcium (ATORVASTATIN CALCIUM) 10 Mg Tab, 1 TAB PO DAILY 02/15/24 Carvedilol (Carvedilol) 3.125 Mg Tab, 1 TAB PO BID 02/15/24 Current Medications Current Medications Medications (Trade) Dose Ordered Sig/Justino Route PRN Reason Start Time Stop Time Status Last Admin Atorvastatin Calcium (Lipitor) 10 mg HS PO 02/16/24 22:00 02/16/24 21:49 Hydromorphone HCl (Dilaudid Injection) 0.25 mg Q6HPRN IV 02/16/24 14:30 02/16/24 14:30 DC Hydromorphone HCl (Dilaudid Injection) 0.25 mg Q6HPRN PRN IV SEVERE PAIN (7-10 PAIN SCALE) 02/16/24 14:45 02/16/24 14:32 DC Hydromorphone HCl (Dilaudid Injection) 0.25 mg Q6HP PRN IV SEVERE PAIN (7-10 PAIN SCALE) 02/16/24 14:45 02/16/24 14:48 DC Hydromorphone HCl (Dilaudid Injection) 0.25 mg Q6HPRN PRN IV SEVERE PAIN (7-10 PAIN SCALE) 02/16/24 15:00 02/17/24 07:37 Vital Signs Vital Signs Date Time Temp Pulse Resp B/P (MAP) Pulse Ox O2 Delivery O2 Flow Rate FiO2 02/17/24 09:41 116/54 02/17/24 09:41 90 02/17/24 09:06 97.9 18 96 97.9 02/17/24 07:46 Room Air* 0 21 Labs/Diagnostic Data Labs Test 02/17/24 06:12 02/16/24 11:10 02/16/24 09:00 02/16/24 04:21 Range/Units POC Glucose 177 H 70-106 mg/dl Lactic Acid Level 0.8 0.4-2.0 mmol/L Urine Color Yellow Yellow Urine Clarity Cloudy H Clear Urine pH 7.5 5.0-9.0 Urine Specific [place] 1.010 1.001-1.035 Urine Protein 1+ H Negative Urine Ketones Negative Negative Urine Blood 3+ H Negative /uL Urine Nitrite Negative Negative Urine Bilirubin Negative Negative Urine Urobilinogen Normal Negative mg/dL Urine Leukocyte Esterase 3+ Negative /uL Urine RBC 131 0 - 4 /hpf Urine WBC 125 0 - 5 /hpf Urine WBC Clumps Present None Seen /hpf Urine Squamous Epithelial Cells Few <5 /hpf Urine Bacteria Many H None Seen /hpf Urine Glucose Normal Normal mg/dL Urine Opiates Screen Neg NEGATIVE Urine Fentanyl Screen Pos NEGATIVE Urine Barbiturates Screen Neg NEGATIVE Urine Phencyclidine Screen Neg NEGATIVE Urine Amphetamines Screen Neg NEGATIVE Urine Benzodiazepines Screen Neg NEGATIVE Urine Cocaine Screen Neg NEGATIVE Urine Cannabinoids Screen Pos NEGATIVE White Blood Count 5.4 4.4-10.8 10^3/uL Red Blood Count 3.23 L 4.0-5.20 10^6/uL Hemoglobin 9.0 #L 12.2-16.2 g/dL Hematocrit 27.4 #L 36.0-46.0 % Mean Corpuscular Volume 84.8 80.0-100.0 fL Mean Corpuscular Hemoglobin 27.8 L 28.0-32.0 pg Mean Corpuscular Hemoglobin Concent 32.7 32.0-36.0 g/dL Red Cell Distribution Width 14.3 11.8-14.3 % Platelet Count 150 140-450 10^3/uL Mean Platelet Volume 7.2 6.9-10.8 fL Neutrophils (%) (Auto) 64.3 37.0-80.0 % Lymphocytes (%) (Auto) 24.7 10.0-50.0 % Monocytes (%) (Auto) 7.3 0.0-12.0 % Eosinophils (%) (Auto) 3.2 0.0-7.0 % Basophils (%) (Auto) 0.5 0.0-2.0 % Neutrophils # (Auto) 3.5 1.6-8.6 10 ^3/uL Lymphocytes # (Auto) 1.3 0.4-5.4 10 ^3/uL Monocytes # (Auto) 0.4 0-1.3 10 ^3/uL Eosinophils # (Auto) 0.2 0-0.8 10 ^3/uL Basophils # (Auto) 0 0-0.2 10 ^3/uL Nucleated Red Blood Cells 0.1 % Prothrombin Time 14.1 H 9.3-11.8 sec Prothrombin Time INR 1.36 H 0.9-1.15 Activated Partial Thromboplast Time 33.3 24.5-34.5 SEC Sodium Level 148 H 136-145 mmol/L Potassium Level 3.1 L 3.5-5.1 mmol/L Chloride Level 117 H 98-107 mmol/L Carbon Dioxide Level 22 20-31 mmol/L Anion Gap 9 5-15 Blood Urea Nitrogen 11 9-23 mg/dL Creatinine 0.38 #L 0.550-1.02 mg/dL Glomerular Filtration Rate Calc 111 >90 mL/min BUN/Creatinine Ratio 28.9 H 10.0-20.0 Serum Glucose 100 74-106 mg/dL Hemoglobin A1c 6.9 H <5.7 % A1C Calcium Level 7.9 L 8.7-10.4 mg/dL Phosphorus Level 3.2 2.4-5.1 mg/dL Magnesium Level 1.5 L 1.6-2.6 mg/dL Total Bilirubin 0.3 0.2-1.0 mg/dL Aspartate Amino Transferase (AST) 9 L 13-40 U/L Alanine Aminotransferase (ALT) < 9 7-40 U/L Alkaline Phosphatase 90 46-116 U/L Total Protein 5.1 L 5.7-8.2 g/dL Albumin 3.0 L 3.2-4.8 g/dL Triglycerides Level 105 < 150 mg/dL Cholesterol Level 71 < 200 mg/dL LDL Cholesterol 37 < 100 mg/dL HDL Cholesterol 18 L 40-59 mg/dL Vitamin B12 Level 620 211-911 pg/mL Vitamin D 25-Hydroxy 16.3 L 30.0-100 ng/mL Test 02/15/24 21:33 Range/Units D-Dimer, Quantitative 0.59 H 0.0-0.49 mg/L FEU Thyroid Stimulating Hormone (TSH) 0.89 0.55-4.78 uIU/mL Plasma/Serum Blood Alcohol 3.8 <10 mg/dL Microbiology Date/Time Source Procedure Growth Status 02/15/24 14:45 Blood Blood Culture - Preliminary NO GROWTH AFTER 24 HOURS OF INCUBATION. Resulted Assessment 63 year old female s/p bilateral mastectomy, done at [facility], has fluid collection and wound dehiscence in the left post mastectomy site, will ask radiology to de ultrasound guided aspiration. explained to patient. Plan discussed with: Patient LATRICE BLOUNT MD Feb 17, 2024 10:50
[2024-02-17] MEDS: HYDROmorphone HCL 2 MG/ML VL/or syr IV PRN (16:11)
[2024-02-18] VITALS (8 sets, daily range): BP systolic 110–164; BP diastolic 30–58; PULSE 89–97; RESP 18–20; TEMP 98–98.7; O2SAT 94–98
--- NOTE | 2024-02-18 13:08 | DVHPN2 ---
Subjective The patient is seen and examined at bedside. The patient is still have severe pain in her breast area. Patient also complained that her Dilaudid which is dose at 0.25 mg IV q.6 hours we will did not help with her pain. She also want to shorten Hixson duration because every 6 hours is not controlled her pain. Reviewed: Care Plan, H&P, Labs, Medications, Previous Orders, Radiology Changes from previous H/P or p: No Changes Objective Vitals Vital Signs Date Time Temp Pulse Resp B/P (MAP) Pulse Ox O2 Delivery O2 Flow Rate FiO2 02/18/24 12:52 98.6 90 20 143/39 (73) 97 98.6 02/17/24 20:00 Room Air* 0 21 Intake/Output Intake and Output 02/18/24 07:00 Intake Total 1050 ml Balance 1050 ml Intake Oral 1050 ml # Voids 2 General Appearance: Alert, Oriented X3, Cooperative, No acute distress HEENT: Atraumatic, PERRLA, EOMI, Mucous membr. moist/pink Neck: Supple Chest/Breasts: Discharge, Lesions Cardiovascular: Regular rate, Normal S1, Normal S2, No murmurs, Gallops, Rubs Abdomen: Normal bowel sounds, Soft, No tenderness Neuro: Cranial nerves 3-12 NL Psych/Mental Status: Mood NL Medications Current Medications Medications Dose Ordered Sig/Justino Route Start Time Stop Time Status Last Admin Dose Admin Sodium Chloride 10 ml Q8HR IV 02/15/24 22:00 02/18/24 06:00 10 ML Ondansetron HCl 4 mg Q4HP PRN IV 02/15/24 21:15 02/16/24 20:46 4 MG Docusate Sodium 100 mg BIDPRN PRN PO 02/15/24 21:15 Acetaminophen 650 mg Q6HP PRN PO 02/15/24 21:15 Vancomycin HCl 0 ml @ 0 mls/hr UD IV 02/15/24 22:45 UNV Nitroglycerin 0.4 mg Q5MINP PRN SL 02/16/24 05:45 Insulin Glargine 12 units DAILY SC 02/16/24 10:00 02/18/24 11:44 12 UNITS Insulin Human Regular ACHS SC 02/16/24 07:00 02/18/24 11:45 3 UNITS Dextrose 50 ml UD PRN IV 02/16/24 03:00 Meropenem 50 ml @ 17 mls/hr Q8HR IV 02/16/24 06:15 Hold Ibuprofen 600 mg Q6HP PRN PO 02/15/24 23:00 Carvedilol 3.125 mg BID PO 02/16/24 10:00 02/18/24 11:37 3.125 MG Losartan Potassium 50 mg DAILY PO 02/16/24 10:00 02/18/24 11:36 50 MG Pantoprazole Sodium 40 mg DAILY@0600 PO 02/16/24 06:15 02/18/24 06:00 40 MG Atorvastatin Calcium 10 mg HS PO 02/16/24 22:00 02/17/24 22:00 10 MG Diagnostic Test (Pha) 1 strip ACHS 02/16/24 07:00 02/18/24 11:45 1 STRIP Sodium Chloride 1,000 ml @ 75 mls/hr [id number] IV 02/16/24 09:30 02/17/24 12:15 75 MLS/HR Doxycycline Hyclate 250 ml @ 125 mls/hr Q12H IV 02/16/24 10:00 02/18/24 11:35 125 MLS/HR Hydromorphone HCl 1 mg Q4HP PRN IV 02/17/24 15:15 02/18/24 11:55 1 MG Laboratory Results Laboratory Tests 02/16/24 04:21 Urinalysis Test 02/16/24 09:00 Urine Color Yellow (Yellow) Urine Clarity Cloudy (Clear) H Urine pH 7.5 (5.0-9.0) Urine Specific [place] 1.010 (1.001-1.035) Urine Protein 1+ (Negative) H Urine Ketones Negative (Negative) Urine Blood 3+ /uL (Negative) H Urine Nitrite Negative (Negative) Urine Bilirubin Negative (Negative) Urine Urobilinogen Normal mg/dL (Negative) Urine Leukocyte Esterase 3+ /uL (Negative) Urine RBC 131 /hpf (0 - 4) Urine WBC 125 /hpf (0 - 5) Urine WBC Clumps Present /hpf (None Seen) Urine Squamous Epithelial Cells Few /hpf (<5) Urine Bacteria Many /hpf (None Seen) H Urine Glucose Normal mg/dL (Normal) Microbiology Microbiology Date/Time Source Procedure Growth Status 02/15/24 14:45 Blood Blood Culture - Preliminary NO GROWTH AFTER 48 HOURS OF INCUBATION. Resulted Labs and/or images reviewed: Labs reviewed by me Assessment/Plan Assessment/Plan #Post surgical wound infection/abscess of the left breast and right breast wound days since -status post bilateral mastectomy with lymphadenectomy at [facility] on 01/04/[address] Jon brooke -patient do not want to see her previous surgeon Dr. Jon brooke, that is why she came to [facility] -pending wound culture, blood culture -ordered surgery consult for further evaluation and care - CT chest with contrast for further evaluation and care show: 3.6 x 8.0 cm cystic collection with enhancing gonzalez in the left breast. There is overlying skin thickening. An abscess is not excluded.. Clinical correlation is recommended. Ultrasound-guided aspiration be performed if clinically indicated. There is pleural thickening with scattered pleural calcifications in the left rogerio thorax. There is lesser degree of pleural thickening with calcifications along the anterolateral right middle lobe. There is pleural-parenchymal scarring in the bilateral lower lungs. There is no evidence of lung consolidation. There is no evidence of pleural effusion or pneumothorax. Nonspecific 2.0 cm cystic structure along the anterior body of the pancreas. Severe compression deformity of the T10 vertebral body. Will order CT abdoment and pelvis with contrast to further work up on the pancreatic mass. --continue meropenem 1 g IV q.8h -continue doxycycline 100 mg IV b.i.d. # history of right breast carcinoma, -status post bilateral mastectomy with lymphadenectomy -post surgical wound infection with wound dehiscence -ordered surgery consult for further evaluation and care -pending wound culture and blood culture -continue current management # hypertension -continue diltiazem b.i.d. -continue carvedilol 3.125 mg p.o. b.i.d. -continue losartan 50 mg p.o. daily # hyperlipidemia -continue atorvastatin 10 mg daily q.h.s. # diabetes mellitus -patient reported her A1c was 6.[address] [facility] -continue insulin sliding scale as prescribed # paraplegia from complication from syringomyelia -follow up outpatient # history of pulmonary embolism -continue Eliquis 5 mg b.i.d. # history of heart murmur/cardiac disease -order echo 2D for further evaluation and care Appreciate surgery input. Waiting for IR for drainage. DW patient regarding to the cystic mass in her pancrea. I am going to order a CT abdomen pelvis with oral and IV contrast to further study her mass in the pancreas area I am also we will increase her Dilaudid to 1 mg IV every 4 hours p.r.n. for severe pain and Hixson 5/325 every 4 hours as needed for mild to moderate pain Plan discussed with: Patient My Orders Orders - ARIES LANDRY MD Procedure Category Date Status Time Insert Midline ORDERS 02/17/24 Transmitted 14:31 Hydromorphone PHA 02/17/24 In Process Injection (Dilaudid 15:15 Date of Service: Feb 18, 2024 Billing Provider: ARIES LANDRY MD Common Visit Codes: [id number] INP/OBS CARE(HIGH) ARIES LANDRY MD Feb 18, 2024 13:08
[2024-02-18 21:57] LABS: Basophils # (auto) 0 10 ^3/uL (0-0.2); Basophils % (auto) 0.3 % (0.0-2.0); Eosinophils # (auto) 0.1 10 ^3/uL (0-0.8); Hematocrit 36.3 % (36.0-46.0); Lymphocytes # (auto) 1.4 10 ^3/uL (0.4-5.4); Lymphocytes % (auto) 25.1 % (10.0-50.0); Mean Corpuscular Hemoglobin 27.1 pg (28.0-32.0); Mean Corpuscular Hgb Conc. 30.4 g/dL (32.0-36.0); Mean Corpuscular Volume 88.9 fL (80.0-100.0); Monocytes # (auto) 0.4 10 ^3/uL (0-1.3); Monocytes % (auto) 6.5 % (0.0-12.0); Neutrophils # (auto) 3.8 10 ^3/uL (1.6-8.6); Neutrophils % (auto) 66.1 % (37.0-80.0); Nucleated Red Blood Cells % 0.1 %; Platelet Count (auto) 142 10^3/uL (140-450); Red Blood Cells 4.08 10^6/uL (4.0-5.20); Red Cell Distribution Width 14.8 % (11.8-14.3); White Blood Cell 5.8 10^3/uL (4.4-10.8)
[2024-02-18 22:01] LABS: Potassium 3.8 mmol/L (3.5-5.1); Sodium 141 mmol/L (136-145)
[2024-02-18 22:02] LABS: Anion Gap 8 (5-15)
[2024-02-18 22:05] LABS: Calcium 8.7 mg/dL (8.7-10.4); Carbon Dioxide 19 mmol/L (20-31); Chloride 114 mmol/L (98-107)
[2024-02-18 22:07] LABS: BUN/Creatinine Ratio 18.4 (10.0-20.0)
[2024-02-18 22:11] LABS: Blood Urea Nitrogen 9 mg/dL (9-23); Glucose 128 mg/dL (74-106)
[2024-02-19 01:00] VITALS: BP 101/31; PULSE 96; RESP 19; TEMP 98.2; O2SAT 97
[2024-02-19 05:00] VITALS: BP 119/41; PULSE 83; RESP 19; TEMP 98.1; O2SAT 93
[2024-02-19 07:00] LABS: Basophils # (auto) 0 10 ^3/uL (0-0.2); Basophils % (auto) 0.4 % (0.0-2.0); Eosinophils # (auto) 0.2 10 ^3/uL (0-0.8); Eosinophils % (auto) 3.5 % (0.0-7.0); Hematocrit 31.9 % (36.0-46.0); Hemoglobin 10.2 g/dL (12.2-16.2); Lymphocytes # (auto) 1.8 10 ^3/uL (0.4-5.4); Lymphocytes % (auto) 32.8 % (10.0-50.0); Mean Corpuscular Hemoglobin 27.5 pg (28.0-32.0); Mean Corpuscular Hgb Conc. 31.8 g/dL (32.0-36.0); Mean Corpuscular Volume 86.4 fL (80.0-100.0); Monocytes # (auto) 0.4 10 ^3/uL (0-1.3); Monocytes % (auto) 7.2 % (0.0-12.0); Neutrophils % (auto) 56.1 % (37.0-80.0); Platelet Count (auto) 149 10^3/uL (140-450); Red Cell Distribution Width 14.4 % (11.8-14.3); White Blood Cell 5.4 10^3/uL (4.4-10.8)
[2024-02-19 07:11] LABS: Potassium 3.7 mmol/L (3.5-5.1); Sodium 141 mmol/L (136-145)
[2024-02-19 07:17] LABS: BUN/Creatinine Ratio 20.7 (10.0-20.0); Blood Urea Nitrogen 12 mg/dL (9-23)
[2024-02-19 08:08] LABS: Calcium 8.6 mg/dL (8.7-10.4); Chloride 113 mmol/L (98-107)
[2024-02-19 08:11] LABS: Anion Gap 9 (5-15); Carbon Dioxide 19 mmol/L (20-31); Glucose 217 mg/dL (74-106)
[2024-02-19] MEDS: IOHEXOL 300 MG/ML 100ML BOTTLE IJ ONE ×2 (08:19→19:16)
[2024-02-19] MEDS: GASTROGRAFIN 30 ML SOL ONE (08:20)
[2024-02-19 09:10] VITALS: BP 109/42; PULSE 87; RESP 16; TEMP 98.2; O2SAT 96
[2024-02-19] MEDS: fentaNYL CITRATE 100 MCG/2 ML VL IV ONE (11:15)
[2024-02-19] MEDS: MIDAZOLAM HCL 2MG/2ML 2ml VIAL (1mg/ml) IV ONE (11:15)
--- NOTE | 2024-02-19 11:30 | DVHPN2 ---
Subjective The patient is seen and examined at bedside. The patient is waiting for IR for abscess drainage from breast. Reviewed: Care Plan, H&P, Labs, Medications, Previous Orders, Radiology Changes from previous H/P or p: No Changes Objective Vitals Vital Signs Date Time Temp Pulse Resp B/P (MAP) Pulse Ox O2 Delivery O2 Flow Rate FiO2 02/19/24 09:44 87 19 126/43 02/19/24 09:10 98.2 96 98.2 02/18/24 20:00 Room Air* 0 21 Intake/Output Intake and Output 02/19/24 07:00 Intake Total 850 ml Output Total 700 ml Balance 150 ml Intake Oral 600 ml IV Total 250 ml Output Urine Total 700 ml General Appearance: Alert, Oriented X3, Cooperative, No acute distress HEENT: Atraumatic, PERRLA, EOMI, Mucous membr. moist/pink Neck: Supple Chest/Breasts: Discharge, Lesions Cardiovascular: Regular rate, Normal S1, Normal S2, No murmurs, Gallops, Rubs Abdomen: Normal bowel sounds, Soft, No tenderness Neuro: Cranial nerves 3-12 NL Psych/Mental Status: Mood NL Medications Current Medications Medications Dose Ordered Sig/Justino Route Start Time Stop Time Status Last Admin Dose Admin Sodium Chloride 10 ml Q8HR IV 02/15/24 22:00 02/19/24 06:08 10 ML Ondansetron HCl 4 mg Q4HP PRN IV 02/15/24 21:15 02/19/24 09:42 4 MG Docusate Sodium 100 mg BIDPRN PRN PO 02/15/24 21:15 Acetaminophen 650 mg Q6HP PRN PO 02/15/24 21:15 Vancomycin HCl 0 ml @ 0 mls/hr UD IV 02/15/24 22:45 UNV Nitroglycerin 0.4 mg Q5MINP PRN SL 02/16/24 05:45 Insulin Glargine 12 units DAILY SC 02/16/24 10:00 02/19/24 10:07 12 UNITS Insulin Human Regular ACHS SC 02/16/24 07:00 02/19/24 05:56 4 UNITS Dextrose 50 ml UD PRN IV 02/16/24 03:00 Meropenem 50 ml @ 17 mls/hr Q8HR IV 02/16/24 06:15 Hold Ibuprofen 600 mg Q6HP PRN PO 02/15/24 23:00 Carvedilol 3.125 mg BID PO 02/16/24 10:00 02/18/24 21:41 3.125 MG Losartan Potassium 50 mg DAILY PO 02/16/24 10:00 02/18/24 11:36 50 MG Pantoprazole Sodium 40 mg DAILY@0600 PO 02/16/24 06:15 02/19/24 05:36 40 MG Atorvastatin Calcium 10 mg HS PO 02/16/24 22:00 02/18/24 22:00 10 MG Diagnostic Test (Pha) 1 strip ACHS 02/16/24 07:00 02/18/24 21:36 1 STRIP Sodium Chloride 1,000 ml @ 75 mls/hr [id number] IV 02/16/24 09:30 02/19/24 04:10 75 MLS/HR Doxycycline Hyclate 250 ml @ 125 mls/hr Q12H IV 02/16/24 10:00 02/19/24 09:42 125 MLS/HR Hydromorphone HCl 1 mg Q4HP PRN IV 02/17/24 15:15 02/19/24 09:44 1 MG Laboratory Results Laboratory Tests 02/19/24 06:10 Chemistry Test 02/18/24 21:41 02/19/24 06:10 Calcium Level 8.7 mg/dL (8.7-10.4) 8.6 mg/dL (8.7-10.4) L Urinalysis Test 02/16/24 09:00 Urine Color Yellow (Yellow) Urine Clarity Cloudy (Clear) H Urine pH 7.5 (5.0-9.0) Urine Specific [place] 1.010 (1.001-1.035) Urine Protein 1+ (Negative) H Urine Ketones Negative (Negative) Urine Blood 3+ /uL (Negative) H Urine Nitrite Negative (Negative) Urine Bilirubin Negative (Negative) Urine Urobilinogen Normal mg/dL (Negative) Urine Leukocyte Esterase 3+ /uL (Negative) Urine RBC 131 /hpf (0 - 4) Urine WBC 125 /hpf (0 - 5) Urine WBC Clumps Present /hpf (None Seen) Urine Squamous Epithelial Cells Few /hpf (<5) Urine Bacteria Many /hpf (None Seen) H Urine Glucose Normal mg/dL (Normal) Microbiology Microbiology Date/Time Source Procedure Growth Status 02/15/24 14:45 Blood Blood Culture - Preliminary NO GROWTH AFTER 72 HOURS OF INCUBATION. Resulted Labs and/or images reviewed: Labs reviewed by me Assessment/Plan Assessment/Plan #Post surgical wound infection/abscess of the left breast and right breast wound days since -status post bilateral mastectomy with lymphadenectomy at [facility] on 01/04/[address] Jon brooke -patient do not want to see her previous surgeon Dr. Jon brooke, that is why she came to [facility] -pending wound culture, blood culture -ordered surgery consult for further evaluation and care - CT chest with contrast for further evaluation and care show: 3.6 x 8.0 cm cystic collection with enhancing gonzalez in the left breast. There is overlying skin thickening. An abscess is not excluded.. Clinical correlation is recommended. Ultrasound-guided aspiration be performed if clinically indicated. There is pleural thickening with scattered pleural calcifications in the left rogerio thorax. There is lesser degree of pleural thickening with calcifications along the anterolateral right middle lobe. There is pleural-parenchymal scarring in the bilateral lower lungs. There is no evidence of lung consolidation. There is no evidence of pleural effusion or pneumothorax. Nonspecific 2.0 cm cystic structure along the anterior body of the pancreas. Severe compression deformity of the T10 vertebral body. Will order CT abdoment and pelvis with contrast to further work up on the pancreatic mass. --continue meropenem 1 g IV q.8h -continue doxycycline 100 mg IV b.i.d. # history of right breast carcinoma, -status post bilateral mastectomy with lymphadenectomy -post surgical wound infection with wound dehiscence -ordered surgery consult for further evaluation and care -pending wound culture and blood culture -continue current management # hypertension -continue diltiazem b.i.d. -continue carvedilol 3.125 mg p.o. b.i.d. -continue losartan 50 mg p.o. daily # hyperlipidemia -continue atorvastatin 10 mg daily q.h.s. # diabetes mellitus -patient reported her A1c was 6.9 at [facility] -continue insulin sliding scale as prescribed # paraplegia from complication from syringomyelia -follow up outpatient # history of pulmonary embolism -continue Eliquis 5 mg b.i.d. # history of heart murmur/cardiac disease -order echo 2D for further evaluation and care Appreciate surgery input. Waiting for IR for drainage today. . DW patient regarding to the cystic mass in her pancrea. Waiting for CT abdomen pelvis with oral and IV contrast to further study her mass in the pancreas area Continue pain regiment with Dilaudid to 1 mg IV every 4 hours p.r.n. for severe pain and [place] 5/325 every 4 hours as needed for mild to moderate pain Plan discussed with: Patient My Orders Orders - ARIES LANDRY MD Procedure Category Date Status Time Ct Abd Pelvis W CT 02/19/24 Logged Con-Oral & Iv 07:00 L Breast Ultrasound US 02/19/24 Logged 10:30 Ultra Guided Abcess US 02/19/24 Logged Drainage 10:31 Date of Service: Feb 19, 2024 Billing Provider: ARIES LANDRY MD Common Visit Codes: [id number] INP/OBS CARE(HIGH) ARIES LANDRY MD Feb 19, 2024 11:30
[2024-02-19 12:50] VITALS: BP 124/60; PULSE 77; RESP 18; TEMP 97.8; O2SAT 100
--- NOTE | 2024-02-19 13:11 | DVH ---
US ULTRA GUIDED ABCESS DRAINAGE, HISTORY: LT BREAST ABCESS DRAINAGE PROCEDURE: An informed consent was obtained. The patient was placed supine on the interventional tabl e. IV sedation was administered. The left breast suspicious fluid collection was localized with ultra sound and the overlying skin prepped with chlorhexidine which was allowed to dry and draped in the us ual sterile fashion. Time out was performed and infiltrated with 1% Xylocaine. With US guidance, 19-g auge centesis needle catheter was advanced into the fluid collection. Small amount was aspirated for appropriate microbiology/cytology/microbiology and cytology analysis. A 0.035 wire was advanced into the fluid collection. After serial dilatation, a 8 [place] multipurpose pigtail catheter was placed in to the collection. Approximately 10 cc of thick serous fluid with debris was aspirated. The drain was sutured at the skin surface and connected to suction drainage. No immediate complication was identif ied. Post procedure catherogram was obtained. SEDATION: Dr. Lupillo Carpenter was personally responsible for the administration of moderate sedation during the procedure performed, including the use of an independent trained observer who had no other duties during the procedure. The drugs utilized were IV fentanyl and versed (see nursing log for details). The total time of supervision by the attending physician was approximately 30 minutes. FINDINGS: Limited US scan of through the left breast demonstrates a fluid collection. Collection appe ars complex with septations. Post procedure scan shows pigtail drain within the left breast fluid col lection. IMPRESSION: US guided placement of an 8 [place] pigtail drain into a left breast fluid collection with 10 mL aspir ated initially. PLAN: Routine tube care.
[2024-02-19 17:30] VITALS: BP 159/58; PULSE 89; RESP 18; TEMP 97.5; O2SAT 97
[2024-02-19 21:00] VITALS: BP 154/47; PULSE 87; RESP 19; TEMP 97.8; O2SAT 97
[2024-02-20] VITALS (8 sets, daily range): BP systolic 116–148; BP diastolic 41–56; PULSE 83–92; RESP 18–20; TEMP 97.4–98.5; O2SAT 94–98
--- NOTE | 2024-02-20 04:15 | DVH ---
Exam: CT CT ABD PELVIS W CON-ORAL IV History: Rule out pancreatic mass Comparison Study: CT scan of the chest performed on 02/16/2024. Technique: Multidetector spiral CT of the abdomen was performed from lung bases to pubic symphysis. Axial imaging was performed with intravenous contrast following the uneventful administration of 100 ml Omnipaque 300. Coronal and sagittal multiplanar reformats were obtained from the axial data set b y the technologist. Radiation Dose : 1. Abdomen/Pelvis: CTDIvol 16.7 mGy, DLP 861.2 mGy*cm. Findings: Lung Bases: Bilateral lower lobe atelectasis. Visualized portions of the heart and pericardium are un remarkable. Liver: The liver is normal in size. No focal on 02/16/2024 lesions. Gallbladder and Biliary Tree: The gallbladder is unremarkable. No intrahepatic or extrahepatic bilia ry ductal dilatation. Spleen: Unremarkable Pancreas: The pancreas enhances normally . There is a 2.9 cm cystic lesion in the junction of the moy dy and tail of the pancreas without enhancement.. The main pancreatic duct is not dilated Adrenal Glands: Unremarkable Kidneys: Kidneys enhance symmetrically. Bilateral intrarenal calculi measuring up to 1.7 cm in the r ight kidney and 2.1 cm in the left renal pelvis. Severe right and moderate left hydroureteronephrosis . GI tract: Hiatal hernia. No evidence of small bowel wall thickening or abnormal dilatation to sugges t bowel obstruction. Left lower quadrant ostomy. The appendix is not visualized, however no inflammat ory changes in the right lower quadrant to suggest acute appendicitis. Peritoneum/mesentery/retroperitoneum. No evidence of free intraperitoneal air. No ascites. No evidenc e of suspicious lymphadenopathy. Abdominal Wall: Unremarkable. Vasculature: Abdominal aorta and main branches are unremarkable. Normal vascular enhancement. Urinary Bladder: Distended urinary bladder with a lobular contour and right-sided diverticula. Stones are noted layering dependently in the urinary bladder. Pelvic Organs: Unremarkable Musculoskeletal: No aggressive focal bony lesions, acute fractures or dislocation. Chronic deformity in the bilateral hips. Left femoral head is absent. Bones are demineralized. Vertebral plana at the thoracolumbar junction. Soft tissues: Peripherally enhancing fluid collection in the left breast with percutaneous drain in s itu. The fluid collection measures approximately 7 cm in maximum transverse dimension and 1.4 cm in A P dimension. IMPRESSION: 1. Severe right and moderate left hydroureteronephrosis and distention of the urinary bladder suspici ous for chronic bladder outlet obstruction. Bilateral staghorn calculi. Urinary bladder stones. 2. Cholelithiasis. 3. Left lower quadrant ostomy. No bowel obstruction. 4. Left breast fluid collection with percutaneous drain. 5. 2.9 cm cystic mass at the junction of the body and tail of the pancreas without enhancement. Both benign and malignant etiologies can have this appearance. 6. Additional nonacute findings as detailed in the body of the report.
--- NOTE | 2024-02-20 11:07 | DVHPN2 ---
Subjective The patient is seen and examined at bedside. The patient his intractable nausea and had been vomiting. Zofran does help her. Reviewed: Care Plan, H&P, Labs, Medications, Previous Orders, Radiology Changes from previous H/P or p: No Changes Objective Vitals Vital Signs Date Time Temp Pulse Resp B/P (MAP) Pulse Ox O2 Delivery O2 Flow Rate FiO2 02/20/24 10:45 83 153/46 02/20/24 10:40 17 02/20/24 09:00 98.0 95 98.0 02/19/24 20:00 Room Air* 0 21 Intake/Output Intake and Output 02/20/24 07:00 Intake Total 1700 ml Output Total 1840 ml Balance -140 ml Intake Oral 1200 ml IV Total 500 ml Output Urine Total 1840 ml # Voids 2 General Appearance: Alert, Oriented X3, Cooperative, No acute distress HEENT: Atraumatic, PERRLA, EOMI, Mucous membr. moist/pink Neck: Supple Chest/Breasts: Discharge, Lesions Cardiovascular: Regular rate, Normal S1, Normal S2, No murmurs, Gallops, Rubs Abdomen: Normal bowel sounds, Soft, No tenderness Neuro: Cranial nerves 3-12 NL Psych/Mental Status: Mood NL Medications Current Medications Medications Dose Ordered Sig/Justino Route Start Time Stop Time Status Last Admin Dose Admin Sodium Chloride 10 ml Q8HR IV 02/15/24 22:00 02/20/24 05:22 10 ML Ondansetron HCl 4 mg Q4HP PRN IV 02/15/24 21:15 02/20/24 10:32 4 MG Docusate Sodium 100 mg BIDPRN PRN PO 02/15/24 21:15 Acetaminophen 650 mg Q6HP PRN PO 02/15/24 21:15 Vancomycin HCl 0 ml @ 0 mls/hr UD IV 02/15/24 22:45 UNV Nitroglycerin 0.4 mg Q5MINP PRN SL 02/16/24 05:45 Insulin Glargine 12 units DAILY SC 02/16/24 10:00 02/19/24 10:07 12 UNITS Insulin Human Regular ACHS SC 02/16/24 07:00 02/19/24 17:00 3 UNITS Dextrose 50 ml UD PRN IV 02/16/24 03:00 Meropenem 50 ml @ 17 mls/hr Q8HR IV 02/16/24 06:15 Hold Ibuprofen 600 mg Q6HP PRN PO 02/15/24 23:00 Carvedilol 3.125 mg BID PO 02/16/24 10:00 02/20/24 10:45 3.125 MG Losartan Potassium 50 mg DAILY PO 02/16/24 10:00 02/20/24 10:44 50 MG Pantoprazole Sodium 40 mg DAILY@0600 PO 02/16/24 06:15 02/20/24 05:22 40 MG Atorvastatin Calcium 10 mg HS PO 02/16/24 22:00 02/18/24 22:00 10 MG Diagnostic Test (Pha) 1 strip ACHS 02/16/24 07:00 02/20/24 05:29 1 STRIP Sodium Chloride 1,000 ml @ 75 mls/hr [id number] IV 02/16/24 09:30 02/20/24 10:28 75 MLS/HR Doxycycline Hyclate 250 ml @ 125 mls/hr Q12H IV 02/16/24 10:00 02/20/24 10:27 125 MLS/HR Hydromorphone HCl 1 mg Q4HP PRN IV 02/17/24 15:15 02/20/24 10:40 1 MG Laboratory Results Laboratory Tests 02/19/24 06:10 Urinalysis Test 02/16/24 09:00 Urine Color Yellow (Yellow) Urine Clarity Cloudy (Clear) H Urine pH 7.5 (5.0-9.0) Urine Specific [place] 1.010 (1.001-1.035) Urine Protein 1+ (Negative) H Urine Ketones Negative (Negative) Urine Blood 3+ /uL (Negative) H Urine Nitrite Negative (Negative) Urine Bilirubin Negative (Negative) Urine Urobilinogen Normal mg/dL (Negative) Urine Leukocyte Esterase 3+ /uL (Negative) Urine RBC 131 /hpf (0 - 4) Urine WBC 125 /hpf (0 - 5) Urine WBC Clumps Present /hpf (None Seen) Urine Squamous Epithelial Cells Few /hpf (<5) Urine Bacteria Many /hpf (None Seen) H Urine Glucose Normal mg/dL (Normal) Microbiology Microbiology Date/Time Source Procedure Growth Status 02/15/24 14:45 Blood Blood Culture - Preliminary NO GROWTH AFTER 72 HOURS OF INCUBATION. Resulted Labs and/or images reviewed: Labs reviewed by me Assessment/Plan Assessment/Plan #Post surgical wound infection/abscess of the left breast and right breast wound days since -status post bilateral mastectomy with lymphadenectomy at [facility] on 01/04/[address] Jon brooke -patient do not want to see her previous surgeon Dr. Jon brooke, that is why she came to [facility] -pending wound culture, blood culture -ordered surgery consult for further evaluation and care - CT chest with contrast for further evaluation and care show: 3.6 x 8.0 cm cystic collection with enhancing gonzalez in the left breast. There is overlying skin thickening. An abscess is not excluded.. Clinical correlation is recommended. Ultrasound-guided aspiration be performed if clinically indicated. There is pleural thickening with scattered pleural calcifications in the left rogeroi thorax. There is lesser degree of pleural thickening with calcifications along the anterolateral right middle lobe. There is pleural-parenchymal scarring in the bilateral lower lungs. There is no evidence of lung consolidation. There is no evidence of pleural effusion or pneumothorax. Nonspecific 2.0 cm cystic structure along the anterior body of the pancreas. Severe compression deformity of the T10 vertebral body. Will order CT abdoment and pelvis with contrast to further work up on the pancreatic mass. --continue meropenem 1 g IV q.8h -continue doxycycline 100 mg IV b.i.d. # history of right breast carcinoma, -status post bilateral mastectomy with lymphadenectomy -post surgical wound infection with wound dehiscence -ordered surgery consult for further evaluation and care -pending wound culture and blood culture -continue current management # hypertension -continue diltiazem b.i.d. -continue carvedilol 3.125 mg p.o. b.i.d. -continue losartan 50 mg p.o. daily # hyperlipidemia -continue atorvastatin 10 mg daily q.h.s. # diabetes mellitus -patient reported her A1c was 6.9 at [facility] -continue insulin sliding scale as prescribed # paraplegia from complication from syringomyelia -follow up outpatient # history of pulmonary embolism -continue Eliquis 5 mg b.i.d. # history of heart murmur/cardiac disease -order echo 2D for further evaluation and care #chronic bladder outlet obstruction. #Bilateral staghorn calculi. Appreciate surgery input. Waiting for IR for drainage today. . DW patient regarding to the cystic mass in her pancrea. CT scan abdomen and pelvis showed: Severe right and moderate left hydroureteronephrosis and distention of the urinary bladder suspicious for chronic bladder outlet obstruction. Bilateral staghorn calculi. Urinary bladder stones. Cholelithiasis. Left lower quadrant ostomy. No bowel obstruction. Left breast fluid collection with percutaneous drain. 2.9 cm cystic mass at the junction of the body and tail of the pancreas without enhancement. Both benign and malignant etiologies can have this appearance. Musculoskeletal: No aggressive focal bony lesions, acute fractures or dislocation. Chronic deformity in the bilateral hips. Left femoral head is absent. Bones are demineralized. Vertebral plana at the thoracolumbar junction. Soft tissues: Peripherally enhancing fluid collection in the left breast with percutaneous drain in situ. The fluid collection measures approximately 7 cm in maximum transverse dimension and 1.4 cm in AP dimension. I will consulted Oncology for further input on the pancreas mass Continue pain regiment with Dilaudid to 1 mg IV every 4 hours p.r.n. for severe pain and [place] 5/325 every 4 hours as needed for mild to moderate pain. Plan discussed with: Patient My Orders Orders - ARIES LANDRY MD Procedure Category Date Status Time Cleanse Wound With JOSE ARMANDO 02/19/24 In Process Wound Clean 18:04 Date of Service: Feb 20, 2024 Billing Provider: ARIES LANDRY MD Common Visit Codes: [id number] INP/OBS CARE(HIGH) ARIES LANDRY MD Feb 20, 2024 11:07
[2024-02-21] VITALS (8 sets, daily range): BP systolic 96–150; BP diastolic 44–66; PULSE 52–88; RESP 14–17; TEMP 97.4–98.5; O2SAT 93–98
[2024-02-21 11:31] LABS: Potassium 3.6 mmol/L (3.5-5.1); Sodium 143 mmol/L (136-145)
[2024-02-21 11:32] LABS: Anion Gap 8 (5-15); Calcium 8.8 mg/dL (8.7-10.4); Carbon Dioxide 20 mmol/L (20-31)
[2024-02-21 11:36] LABS: Chloride 115 mmol/L (98-107)
[2024-02-21 11:37] LABS: BUN/Creatinine Ratio 14.3 (10.0-20.0)
[2024-02-21 11:38] LABS: Blood Urea Nitrogen 8 mg/dL (9-23); Glucose 152 mg/dL (74-106)
[2024-02-21 11:51] LABS: Basophils # (auto) 0 10 ^3/uL (0-0.2); Basophils % (auto) 0.5 % (0.0-2.0); Eosinophils # (auto) 0.2 10 ^3/uL (0-0.8); Eosinophils % (auto) 3.8 % (0.0-7.0); Hematocrit 35.9 % (36.0-46.0); Hemoglobin 11.1 g/dL (12.2-16.2); Lymphocytes # (auto) 1.6 10 ^3/uL (0.4-5.4); Lymphocytes % (auto) 28.5 % (10.0-50.0); Mean Corpuscular Hemoglobin 27.5 pg (28.0-32.0); Mean Corpuscular Volume 88.6 fL (80.0-100.0); Monocytes # (auto) 0.3 10 ^3/uL (0-1.3); Monocytes % (auto) 5.3 % (0.0-12.0); Neutrophils # (auto) 3.5 10 ^3/uL (1.6-8.6); Neutrophils % (auto) 61.9 % (37.0-80.0); Nucleated Red Blood Cells % 0.1 %; Platelet Count (auto) 153 10^3/uL (140-450); Red Blood Cells 4.05 10^6/uL (4.0-5.20); White Blood Cell 5.6 10^3/uL (4.4-10.8)
--- NOTE | 2024-02-21 16:49 | DVHPN2 ---
Subjective Patient states that she still has nausea and vomitings well as generalized weakness. Reviewed: Care Plan, H&P, Labs, Medications, Previous Orders, Radiology Changes from previous H/P or p: No Changes, Changes General: Per HPI Objective Vitals Vital Signs Date Time Temp Pulse Resp B/P (MAP) Pulse Ox O2 Delivery O2 Flow Rate FiO2 02/21/24 14:50 97.4 52 16 136/56 (82) 96 97.4 02/21/24 07:30 Room Air* 0 21 Intake/Output Intake and Output 02/21/24 07:00 Intake Total 2825 ml Output Total 1700 ml Balance 1125 ml Intake Oral 1650 ml IV Total 1175 ml Output Urine Total 1700 ml General Appearance: Alert, Oriented X3, Cooperative, No acute distress HEENT: Atraumatic, PERRLA, EOMI, Mucous membr. moist/pink Neck: Supple Chest/Breasts: Discharge, Lesions, Other (IR drain left to abscess sign on chest. Wound dehiscence noted.) Cardiovascular: Regular rate, Normal S1, Normal S2, No murmurs, Gallops, Rubs Abdomen: Normal bowel sounds, Soft, No tenderness Musculoskeletal: Normal sensory function, Normal motor function Neuro: Cranial nerves 3-12 NL Psych/Mental Status: Mood NL Medications Current Medications Medications Dose Ordered Sig/Justino Route Start Time Stop Time Status Last Admin Dose Admin Sodium Chloride 10 ml Q8HR IV 02/15/24 22:00 02/21/24 06:28 10 ML Ondansetron HCl 4 mg Q4HP PRN IV 02/15/24 21:15 02/21/24 13:16 4 MG Docusate Sodium 100 mg BIDPRN PRN PO 02/15/24 21:15 Acetaminophen 650 mg Q6HP PRN PO 02/15/24 21:15 Vancomycin HCl 0 ml @ 0 mls/hr UD IV 02/15/24 22:45 UNV Nitroglycerin 0.4 mg Q5MINP PRN SL 02/16/24 05:45 Insulin Glargine 12 units DAILY SC 02/16/24 10:00 02/19/24 10:07 12 UNITS Insulin Human Regular ACHS SC 02/16/24 07:00 02/20/24 22:12 3 UNITS Dextrose 50 ml UD PRN IV 02/16/24 03:00 Meropenem 50 ml @ 17 mls/hr Q8HR IV 02/16/24 06:15 Hold Ibuprofen 600 mg Q6HP PRN PO 02/15/24 23:00 Carvedilol 3.125 mg BID PO 02/16/24 10:00 02/21/24 10:21 3.125 MG Losartan Potassium 50 mg DAILY PO 02/16/24 10:00 02/21/24 10:22 50 MG Pantoprazole Sodium 40 mg DAILY@0600 PO 02/16/24 06:15 02/21/24 06:08 40 MG Atorvastatin Calcium 10 mg HS PO 02/16/24 22:00 02/20/24 22:00 10 MG Diagnostic Test (Pha) 1 strip ACHS 02/16/24 07:00 02/21/24 11:30 1 STRIP Sodium Chloride 1,000 ml @ 75 mls/hr [id number] IV 02/16/24 09:30 02/20/24 20:36 75 MLS/HR Doxycycline Hyclate 250 ml @ 125 mls/hr Q12H IV 02/16/24 10:00 02/21/24 10:23 125 MLS/HR Hydromorphone HCl 1 mg Q4HP PRN IV 02/17/24 15:15 02/21/24 13:17 1 MG Laboratory Results Laboratory Tests 02/21/24 11:06 Chemistry Test 02/21/24 11:06 Calcium Level 8.8 mg/dL (8.7-10.4) Urinalysis Test 02/16/24 09:00 Urine Color Yellow (Yellow) Urine Clarity Cloudy (Clear) H Urine pH 7.5 (5.0-9.0) Urine Specific [place] 1.010 (1.001-1.035) Urine Protein 1+ (Negative) H Urine Ketones Negative (Negative) Urine Blood 3+ /uL (Negative) H Urine Nitrite Negative (Negative) Urine Bilirubin Negative (Negative) Urine Urobilinogen Normal mg/dL (Negative) Urine Leukocyte Esterase 3+ /uL (Negative) Urine RBC 131 /hpf (0 - 4) Urine WBC 125 /hpf (0 - 5) Urine WBC Clumps Present /hpf (None Seen) Urine Squamous Epithelial Cells Few /hpf (<5) Urine Bacteria Many /hpf (None Seen) H Urine Glucose Normal mg/dL (Normal) Microbiology Microbiology Date/Time Source Procedure Growth Status 02/19/24 12:45 Aspirate Gram Stain - Final Resulted 02/19/24 12:45 Aspirate Body Fluid Culture - Preliminary Resulted 02/15/24 14:45 Blood Blood Culture - Final NO GROWTH AFTER 5 DAYS OF INCUBATION. Complete Labs and/or images reviewed: Labs reviewed by me, Image(s) reviewed by me Assessment/Plan Assessment/Plan Impression: -status post bilateral mastectomy with wound dehiscence and abscess formation -breast cancer -status post ileal conduit -bladder outlet obstruction -pancreatic mass -intractable nausea and vomiting -primary hypertension -history of PE -dyslipidemia -diabetes mellitus Plan: -patient was status post consultation by General surgery, Interventional Radiology with placement of drain to left chest abscess -continue antibiotic therapy with doxycycline. Merrem panel is currently held secondary to penicillin allergy. Add Levaquin -GI consultation for persistent nausea and vomiting -gentle IV hydration -continue antihypertensives -regular insulin sliding scale -oncology consultation: Pending -repeat labs in a.m. Total time spent with patient discussing and formulating plan of care: 35 minutes. This medical document was created using an electronic medical record system with [employer] dictation system. Although this document has been carefully reviewed, there may still be some phonetic and typographical errors. These areas are purely typographical due to imperfections of the software programs, and do not reflect any compromise in the patient's medical care. Plan discussed with: Patient, Other (RN) Date of Service: Feb 21, 2024 Billing Provider: HALLIE MACIEL NP Common Visit Codes: [id number] INP/OBS CARE(HIGH) HALLIE MACIEL NP Feb 21, 2024 16:49
[2024-02-21] MEDS: levoFLOXacin 500MG 100 ML IV SCH (18:00)
[2024-02-21] MEDS: DOCUSATE SOD 100 MG CAP PO PRN (18:34)
--- NOTE | 2024-02-21 20:55 | DVHINCON2 ---
Date of service: Feb 21, 2024 Referring Physician Kulwant Hale Reason for Consultation N/V and pancreatic mass History of Present Illness 63 year old female s/p bilateral mastectomy, done at [facility], has fluid collection and wound dehiscence in the left post mastectomy site, radiology did ultrasound guided aspiration and drainage placement. Patient complained of nausea and vomiting and generalized weakness. 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 Past Surgical History Past Surgical History MARLENI left, BKA right, bilateral mastectomy with lymphadenectomy due to carcinoma of the right breast, history of cervical spine surgery due to syringomyelia Family History: Malignant neoplasm of breast G8 MOTHER Allergies: Coded Allergies: Bacitracin (Verified Allergy, Unknown, 02/15/24) Benzoin (Verified Allergy, Unknown, 02/15/24) Carisoprodol (Verified Allergy, Unknown, 02/15/24) Morphine (Verified Allergy, Unknown, 02/15/24) Penicillins (Verified Allergy, Unknown, 02/15/24) Sulfanilamide (Verified Allergy, Unknown, 02/15/24) Trimethoprim (Verified Allergy, Unknown, 02/15/24) Vancomycin (Verified Allergy, Unknown, 02/15/24) Uncoded Allergies: SULFA (Allergy, Unknown, 02/15/24) Home Meds Reported Medications Insulin Glargine (Lantus) 100 Unit/Ml Inj, 12 UNIT SC DAILY 02/15/24 Diltiazem Hcl (Diltiazem Hcl) 30 Mg Tab, 1 TAB PO BID 02/15/24 Losartan Potassium (Losartan Potassium) 50 Mg Tab, 1 TAB PO DAILY 02/15/24 Apixaban Base (ELIQUIS) 5 Mg Tab, 1 TAB PO BID 02/15/24 Insulin Lispro (Insulin Lispro) 100 Unit/Ml Inj, SC 02/15/24 Atorvastatin Calcium (ATORVASTATIN CALCIUM) 10 Mg Tab, 1 TAB PO DAILY 02/15/24 Carvedilol (Carvedilol) 3.125 Mg Tab, 1 TAB PO BID 02/15/24 Current Medications Current Medications Medications (Trade) Dose Ordered Sig/Justino Route PRN Reason Start Time Stop Time Status Last Admin Metoclopramide HCl (Reglan Injection) 10 mg Q8HPRN PRN IV NAUSEA / VOMITING 02/21/24 16:45 Levofloxacin/ Dextrose 100 ml @ 100 mls/hr DAILY@1800 IV 02/21/24 18:00 Vital Signs Vital Signs Date Time Temp Pulse Resp B/P (MAP) Pulse Ox O2 Delivery O2 Flow Rate FiO2 02/21/24 19:09 65 18 123/65 02/21/24 17:00 98.1 97 98.1 02/21/24 07:30 Room Air* 0 21 Physical Exam General Appearance: Alert, Oriented X3, Cooperative, No acute distress HEENT: Atraumatic, PERRLA, EOMI, Mucous membr. moist/pink Neck: Supple Chest/Breasts: Discharge, Lesions, Other (IR drain left to abscess sign on chest. Wound dehiscence noted.) Cardiovascular: Regular rate, Normal S1, Normal S2, No murmurs, Gallops, Rubs Abdomen: Normal bowel sounds, Soft, No tenderness Musculoskeletal: Normal sensory function, Normal motor function Neuro: Cranial nerves 3-12 NL Psych/Mental Status: Mood NL Labs/Diagnostic Data Labs Test 02/21/24 19:20 02/21/24 11:48 02/21/24 11:06 02/16/24 11:10 Range/Units POC Glucose 153 H 70-106 mg/dl White Blood Count 5.6 4.4-10.8 10^3/uL Red Blood Count 4.05 4.0-5.20 10^6/uL Hemoglobin 11.1 L 12.2-16.2 g/dL Hematocrit 35.9 #L 36.0-46.0 % Mean Corpuscular Volume 88.6 80.0-100.0 fL Mean Corpuscular Hemoglobin 27.5 L 28.0-32.0 pg Mean Corpuscular Hemoglobin Concent 31.0 L 32.0-36.0 g/dL Red Cell Distribution Width 15.0 H 11.8-14.3 % Platelet Count 153 140-450 10^3/uL Mean Platelet Volume 7.5 6.9-10.8 fL Neutrophils (%) (Auto) 61.9 37.0-80.0 % Lymphocytes (%) (Auto) 28.5 10.0-50.0 % Monocytes (%) (Auto) 5.3 0.0-12.0 % Eosinophils (%) (Auto) 3.8 0.0-7.0 % Basophils (%) (Auto) 0.5 0.0-2.0 % Neutrophils # (Auto) 3.5 1.6-8.6 10 ^3/uL Lymphocytes # (Auto) 1.6 0.4-5.4 10 ^3/uL Monocytes # (Auto) 0.3 0-1.3 10 ^3/uL Eosinophils # (Auto) 0.2 0-0.8 10 ^3/uL Basophils # (Auto) 0 0-0.2 10 ^3/uL Nucleated Red Blood Cells 0.1 % Sodium Level 143 136-145 mmol/L Potassium Level 3.6 3.5-5.1 mmol/L Chloride Level 115 H 98-107 mmol/L Carbon Dioxide Level 20 20-31 mmol/L Anion Gap 8 5-15 Blood Urea Nitrogen 8 L 9-23 mg/dL Creatinine 0.56 0.550-1.02 mg/dL Glomerular Filtration Rate Calc 101 >90 mL/min BUN/Creatinine Ratio 14.3 10.0-20.0 Serum Glucose 152 H 74-106 mg/dL Calcium Level 8.8 8.7-10.4 mg/dL Lactic Acid Level 0.8 0.4-2.0 mmol/L Test 02/16/24 09:00 02/16/24 04:21 02/15/24 21:33 Range/Units Urine Color Yellow Yellow Urine Clarity Cloudy H Clear Urine pH 7.5 5.0-9.0 Urine Specific [place] 1.010 1.001-1.035 Urine Protein 1+ H Negative Urine Ketones Negative Negative Urine Blood 3+ H Negative /uL Urine Nitrite Negative Negative Urine Bilirubin Negative Negative Urine Urobilinogen Normal Negative mg/dL Urine Leukocyte Esterase 3+ Negative /uL Urine RBC 131 0 - 4 /hpf Urine WBC 125 0 - 5 /hpf Urine WBC Clumps Present None Seen /hpf Urine Squamous Epithelial Cells Few <5 /hpf Urine Bacteria Many H None Seen /hpf Urine Glucose Normal Normal mg/dL Urine Opiates Screen Neg NEGATIVE Urine Fentanyl Screen Pos NEGATIVE Urine Barbiturates Screen Neg NEGATIVE Urine Phencyclidine Screen Neg NEGATIVE Urine Amphetamines Screen Neg NEGATIVE Urine Benzodiazepines Screen Neg NEGATIVE Urine Cocaine Screen Neg NEGATIVE Urine Cannabinoids Screen Pos NEGATIVE Prothrombin Time 14.1 H 9.3-11.8 sec Prothrombin Time INR 1.36 H 0.9-1.15 Activated Partial Thromboplast Time 33.3 24.5-34.5 SEC Hemoglobin A1c 6.9 H <5.7 % A1C Phosphorus Level 3.2 2.4-5.1 mg/dL Magnesium Level 1.5 L 1.6-2.6 mg/dL Total Bilirubin 0.3 0.2-1.0 mg/dL Aspartate Amino Transferase (AST) 9 L 13-40 U/L Alanine Aminotransferase (ALT) < 9 7-40 U/L Alkaline Phosphatase 90 46-116 U/L Total Protein 5.1 L 5.7-8.2 g/dL Albumin 3.0 L 3.2-4.8 g/dL Triglycerides Level 105 < 150 mg/dL Cholesterol Level 71 < 200 mg/dL LDL Cholesterol 37 < 100 mg/dL HDL Cholesterol 18 L 40-59 mg/dL Vitamin B12 Level 620 211-911 pg/mL Vitamin D 25-Hydroxy 16.3 L 30.0-100 ng/mL D-Dimer, Quantitative 0.59 H 0.0-0.49 mg/L FEU Thyroid Stimulating Hormone (TSH) 0.89 0.55-4.78 uIU/mL Plasma/Serum Blood Alcohol 3.8 <10 mg/dL Microbiology Date/Time Source Procedure Growth Status 02/19/24 12:45 Aspirate Gram Stain - Final Resulted 02/19/24 12:45 Aspirate Body Fluid Culture - Preliminary Resulted 02/15/24 14:45 Blood Blood Culture - Final NO GROWTH AFTER [address]. Complete [address] SCAN ABD PELVIS IMPRESSION: 1. Severe right and moderate left hydroureteronephrosis and distention of the urinary bladder suspicious for chronic bladder outlet obstruction. Bilateral staghorn calculi. Urinary bladder stones. 2. Cholelithiasis. 3. Left lower quadrant ostomy. No bowel obstruction. 4. Left breast fluid collection with percutaneous drain. 5. 2.9 cm cystic mass at the junction of the body and tail of the pancreas without enhancement. Both benign and malignant etiologies can have this appearance. 6. Additional nonacute findings as detailed in the body of the report. Problems(with codes): (1) Pancreatic mass (2) Abnormal finding on GI tract imaging (3) Nausea and vomiting (4) Cellulitis Plan/Recommendation Plan Protonix 40 mg IV daily Zofran as needed for nausea Discontinue ibuprofen and use Tylenol for pain Patient could be having a side effect possibly related to her enema aortic use There is a subtle pancreatic mass noted which could be benign or malignant Check a CA 19-9; lipase levels Recommend an MRI of her pancreas in the near future to further evaluate bile pancreatic mass If this is confirmed then the patient may need outpatient referral for endoscopic ultrasound with FNA I will follow up patient with you Plan discussed with: Other (None) JASKARAN VILLA MD Feb 21, 2024 20:55
[2024-02-21] MEDS: METOCLOPRAMIDE HCL 5MG/ml INJ 2ml VIAL IV PRN (21:22)
[2024-02-22] VITALS (9 sets, daily range): BP systolic 118–145; BP diastolic 35–99; PULSE 73–90; RESP 16–18; TEMP 97.1–98.5; O2SAT 93–97
[2024-02-22 06:41] LABS: Sodium 144 mmol/L (136-145)
[2024-02-22 06:43] LABS: Carbon Dioxide 20 mmol/L (20-31)
[2024-02-22 06:44] LABS: Anion Gap 8 (5-15); Basophils # (auto) 0 10 ^3/uL (0-0.2); Basophils % (auto) 0.4 % (0.0-2.0); Calcium 8.5 mg/dL (8.7-10.4); Chloride 116 mmol/L (98-107); Eosinophils # (auto) 0.2 10 ^3/uL (0-0.8); Hematocrit 32.3 % (36.0-46.0); Hemoglobin 10.4 g/dL (12.2-16.2); Lymphocytes % (auto) 37.3 % (10.0-50.0); Mean Corpuscular Hemoglobin 27.5 pg (28.0-32.0); Mean Corpuscular Hgb Conc. 32.1 g/dL (32.0-36.0); Mean Corpuscular Volume 85.7 fL (80.0-100.0); Monocytes # (auto) 0.4 10 ^3/uL (0-1.3); Monocytes % (auto) 7.2 % (0.0-12.0); Neutrophils # (auto) 2.7 10 ^3/uL (1.6-8.6); Neutrophils % (auto) 52.1 % (37.0-80.0); Nucleated Red Blood Cells % 0.1 %; Platelet Count (auto) 135 10^3/uL (140-450); Potassium 3.1 mmol/L (3.5-5.1); Red Blood Cells 3.77 10^6/uL (4.0-5.20); White Blood Cell 5.2 10^3/uL (4.4-10.8)
[2024-02-22 06:48] LABS: BUN/Creatinine Ratio 16.3 (10.0-20.0); Blood Urea Nitrogen 8 mg/dL (9-23); Glucose 162 mg/dL (74-106)
--- NOTE | 2024-02-22 09:14 | DVHINCON2 ---
Date of service: Feb 22, [address] Chasidy Sharma Reason for Consultation Breast cancer History of Present Illness 63 years old female who has a history of multiple medical problems including diabetes mellitus, paraplegia with a history of syringomyelia at the age of 20. In stages she had left leg amputation above the knee and right leg amputation [id number] because of pressure sores and some fracture of the left leg. She has lost 50 lb of weight in the last six months. 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 Was found to have a right breast mass and she says the biopsy confirmed the breast cancer diagnosis She underwent bilateral mastectomy in December [address] [place] [address] Jon Jaime. She had the drains on both sites which were removed later on. Now she is admitted with a day since of the left breast wound with some fluid collection and has a drain put in by the radiologist She does complain of persistent nausea. Does complain of having fevers up to 101 F over the last three days before admission with some chills. No shortness of breath Her labs showed white count 5.2 hemoglobin 10.4 platelets [id number] GFR 105 calcium 8.5 total bili 0.3 liver functions are normal total protein 5.1 albumin three B12 620 TSH 0.[address] scan of the abdomen pelvis with contrast which showed left lower quadrant ostomy. Left breast fluid collection with percutaneous drain. 2.9 cm cystic mass at the junction of the body and the tail of the pancreas without enhancement benign versus malignant CT of the chest showed the 8 cm cystic fluid collection in the left breast. 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 Right leg amputation [id number] because of pressure sores Cholecystectomy and appendectomy Ileal conduit and colostomy History of astrocytoma of the spinal cord and status post surgery in her younger days Bilateral breast mastectomy for right breast cancer Family History: Malignant neoplasm of breast G8 MOTHER Family History Unremarkable for malignancy or hematological disorders Social History The patient lives with a daughter No smoking or drinking or drugs Allergies: Coded Allergies: Bacitracin (Verified Allergy, Unknown, 02/15/24) Benzoin (Verified Allergy, Unknown, 02/15/24) Carisoprodol (Verified Allergy, Unknown, 02/15/24) Morphine (Verified Allergy, Unknown, 02/15/24) Penicillins (Verified Allergy, Unknown, 02/15/24) Sulfanilamide (Verified Allergy, Unknown, 02/15/24) Trimethoprim (Verified Allergy, Unknown, 02/15/24) Vancomycin (Verified Allergy, Unknown, 02/15/24) Uncoded Allergies: SULFA (Allergy, Unknown, 02/15/24) Home Meds Reported Medications Insulin Glargine (Lantus) 100 Unit/Ml Inj, 12 UNIT SC DAILY 02/15/24 Diltiazem Hcl (Diltiazem Hcl) 30 Mg Tab, 1 TAB PO BID 02/15/24 Losartan Potassium (Losartan Potassium) 50 Mg Tab, 1 TAB PO DAILY 02/15/24 Apixaban Base (ELIQUIS) 5 Mg Tab, 1 TAB PO BID 02/15/24 Insulin Lispro (Insulin Lispro) 100 Unit/Ml Inj, SC 02/15/24 Atorvastatin Calcium (ATORVASTATIN CALCIUM) 10 Mg Tab, 1 TAB PO DAILY 02/15/24 Carvedilol (Carvedilol) 3.125 Mg Tab, 1 TAB PO BID 02/15/24 Current Medications Current Medications Medications (Trade) Dose Ordered Sig/Justino Route PRN Reason Start Time Stop Time Status Last Admin Metoclopramide HCl (Reglan Injection) 10 mg Q8HPRN PRN IV NAUSEA / VOMITING 02/21/24 16:45 02/21/24 21:22 Levofloxacin/ Dextrose 100 ml @ 100 mls/hr DAILY@1800 IV 02/21/24 18:00 Vital Signs Vital Signs Date Time Temp Pulse Resp B/P (MAP) Pulse Ox O2 Delivery O2 Flow Rate FiO2 02/22/24 06:41 68 18 114/60 02/22/24 05:00 97.9 93 97.9 02/21/24 20:00 Room Air* 0 21 Physical Exam Moderately built and nourished, in no acute distress, alert and oriented. No jaundice Head and neck: Unremarkable for any masses or neck nodes. No conjunctival or mucosal hemorrhage Lungs: Clear Cardiovascular: S1-S2 heard well Abdomen: No organomegaly, tenderness or ascites. Bowel sounds are present. Patient has colostomy Extremities: No clubbing edema cyanosis or calf tenderness. Skin: Unremarkable for petechia purpura ecchymosis Lymphadenopathy: None Neurological exam: No focal deficit Bilateral mastectomies Left breast has a drain for swelling right breast status post mastectomy and has some seroma Axillae: Unremarkable Left leg amputation above the knee Right leg amputation [id number] Labs/Diagnostic Data Labs Test 02/22/24 06:00 02/22/24 05:34 02/21/24 19:20 02/16/24 11:10 Range/Units POC Glucose 156 H 70-106 mg/dl White Blood Count 5.2 4.4-10.8 10^3/uL Red Blood Count 3.77 L 4.0-5.20 10^6/uL Hemoglobin 10.4 L 12.2-16.2 g/dL Hematocrit 32.3 #L 36.0-46.0 % Mean Corpuscular Volume 85.7 80.0-100.0 fL Mean Corpuscular Hemoglobin 27.5 L 28.0-32.0 pg Mean Corpuscular Hemoglobin Concent 32.1 32.0-36.0 g/dL Red Cell Distribution Width 15.0 H 11.8-14.3 % Platelet Count 135 L 140-450 10^3/uL Mean Platelet Volume 7.5 6.9-10.8 fL Neutrophils (%) (Auto) 52.1 37.0-80.0 % Lymphocytes (%) (Auto) 37.3 10.0-50.0 % Monocytes (%) (Auto) 7.2 0.0-12.0 % Eosinophils (%) (Auto) 3.0 0.0-7.0 % Basophils (%) (Auto) 0.4 0.0-2.0 % Neutrophils # (Auto) 2.7 1.6-8.6 10 ^3/uL Lymphocytes # (Auto) 2.0 0.4-5.4 10 ^3/uL Monocytes # (Auto) 0.4 0-1.3 10 ^3/uL Eosinophils # (Auto) 0.2 0-0.8 10 ^3/uL Basophils # (Auto) 0 0-0.2 10 ^3/uL Nucleated Red Blood Cells 0.1 % Sodium Level 144 136-145 mmol/L Potassium Level 3.1 L 3.5-5.1 mmol/L Chloride Level 116 H 98-107 mmol/L Carbon Dioxide Level 20 20-31 mmol/L Anion Gap 8 5-15 Blood Urea Nitrogen 8 L 9-23 mg/dL Creatinine 0.49 L 0.550-1.02 mg/dL Glomerular Filtration Rate Calc 105 >90 mL/min BUN/Creatinine Ratio 16.3 10.0-20.0 Serum Glucose 162 H 74-106 mg/dL Calcium Level 8.5 L 8.7-10.4 mg/dL Lactic Acid Level 0.8 0.4-2.0 mmol/L Test 02/16/24 09:00 02/16/24 04:21 02/15/24 21:33 Range/Units Urine Color Yellow Yellow Urine Clarity Cloudy H Clear Urine pH 7.5 5.0-9.0 Urine Specific [place] 1.010 1.001-1.035 Urine Protein 1+ H Negative Urine Ketones Negative Negative Urine Blood 3+ H Negative /uL Urine Nitrite Negative Negative Urine Bilirubin Negative Negative Urine Urobilinogen Normal Negative mg/dL Urine Leukocyte Esterase 3+ Negative /uL Urine RBC 131 0 - 4 /hpf Urine WBC 125 0 - 5 /hpf Urine WBC Clumps Present None Seen /hpf Urine Squamous Epithelial Cells Few <5 /hpf Urine Bacteria Many H None Seen /hpf Urine Glucose Normal Normal mg/dL Urine Opiates Screen Neg NEGATIVE Urine Fentanyl Screen Pos NEGATIVE Urine Barbiturates Screen Neg NEGATIVE Urine Phencyclidine Screen Neg NEGATIVE Urine Amphetamines Screen Neg NEGATIVE Urine Benzodiazepines Screen Neg NEGATIVE Urine Cocaine Screen Neg NEGATIVE Urine Cannabinoids Screen Pos NEGATIVE Prothrombin Time 14.1 H 9.3-11.8 sec Prothrombin Time INR 1.36 H 0.9-1.15 Activated Partial Thromboplast Time 33.3 24.5-34.5 SEC Hemoglobin A1c 6.9 H <5.7 % A1C Phosphorus Level 3.2 2.4-5.1 mg/dL Magnesium Level 1.5 L 1.6-2.6 mg/dL Total Bilirubin 0.3 0.2-1.0 mg/dL Aspartate Amino Transferase (AST) 9 L 13-40 U/L Alanine Aminotransferase (ALT) < 9 7-40 U/L Alkaline Phosphatase 90 46-116 U/L Total Protein 5.1 L 5.7-8.2 g/dL Albumin 3.0 L 3.2-4.8 g/dL Triglycerides Level 105 < 150 mg/dL Cholesterol Level 71 < 200 mg/dL LDL Cholesterol 37 < 100 mg/dL HDL Cholesterol 18 L 40-59 mg/dL Vitamin B12 Level 620 211-911 pg/mL Vitamin D 25-Hydroxy 16.3 L 30.0-100 ng/mL D-Dimer, Quantitative 0.59 H 0.0-0.49 mg/L FEU Thyroid Stimulating Hormone (TSH) 0.89 0.55-4.78 uIU/mL Plasma/Serum Blood Alcohol 3.8 <10 mg/dL Microbiology Date/Time Source Procedure Growth Status 02/19/24 12:45 Aspirate Gram Stain - Final Resulted 02/19/24 12:45 Aspirate Body Fluid Culture - Preliminary Resulted 02/15/24 14:45 Blood Blood Culture - Final NO GROWTH AFTER 5 DAYS OF INCUBATION. Complete Assessment 1. Right breast cancer status post bilateral mastectomy and right axillary lymph node sampling in December 27 and May 05 [facility]. The pathology report to be obtained. 2. Left mastectomy abscess and has a drain 3. Diabetes 4. Paraplegia 5. 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 Both leg amputation left above knee and right [id number] because of pressure sores and some fracture of the left leg bone 7. Colostomy and ileal conduit 8. Weight loss of 50 lb and has persistent nausea 9. The CT of the abdomen showing a small pancreatic mass Plan/Recommendation Treatment for the abscess with local drainage and antibiotics She is getting an EGD done We will arrange for an MRI of the brain to evaluate for the etiology of the nausea She has had CT of the chest abdomen pelvis and the pancreatic mass is seen CA 19-9 has been ordered and the patient will need EUS the MRI of the abdomen with pancreatic protocol We will get her pathology records from [facility] to [facility] and then discuss about the treatment options. The patient says she already has some aromatase inhibitor but has not started taking yet Plan discussed with: Patient BELKISGRACIELA MD Feb 22, 2024 09:14
[2024-02-22] MEDS ORDERED: PROPOFOL 10 MG/ML 20 ML IV ONE (09:20)
[2024-02-22] MEDS ORDERED: fentaNYL CITRATE 100 MCG/2 ML VL ONE (09:20)
[2024-02-22] MEDS ORDERED: HYDROmorphone HCL 2 MG/ML VL/or syr IV PRN (09:45)
[2024-02-22] MEDS ORDERED: ACETAMINOPHEN IV 1000 MG/100ML (10MG/ML) IV PRN (09:45)
--- NOTE | 2024-02-22 09:46 | DVHOP2 ---
Operative Report DATE OF OPERATION: 02/22/24 PROCEDURE: Upper Endoscopy with biopsy. PREOPERATIVE INDICATION: The patient is a 63 -year-old female undergoing endoscopy for nausea vomiting and weight loss POSTOPERATIVE DIAGNOSES: 1. 2 cm sliding-type hiatal hernia with evidence of distal esophagitis with multiple yellowish whitish plaques suspicious for Arianna esophagitis from which biopsies were obtained 2. Mild gastritis otherwise normal examination up to the 2nd and 3rd part of the duodenum PROCEDURE PERFORMED BY: Jaskaran Brice GI NURSE: Tiff SCOPE: Olympus videoendoscope. ASA CLASS: 3. PREOPERATIVE MEDICATIONS: Dr. Edith Tesfaye PROCEDURE IN DETAIL: After obtaining an informed consent, the patient was placed on left lateral decubitus position. The patient was then sedated with the above medications. A bite block was placed between her teeth. The endoscope was then passed through the oropharynx, into the esophagus, and through the stomach and pylorus up to the second and third part of the duodenum. The endoscope was then withdrawn. The 2nd and 3rd part of the duodenum and the duodenal bulb were normal. Duodenal biopsies were obtained. There was good bile drainage. The pre-pyloric area antrum and body showed mild gastritis. Gastric biopsies were obtained. On retroflexion the fundus and cardia were normal. The endoscope was then withdrawn into the distal esophagus where she had a 2 cm sliding-type hiatal hernia. Patient had evidence of esophagitis with multiple yellowish whitish plaques in the distal esophagus from which biopsies were obtained as it was suspicious for Arianna The remaining proximal esophagus and oropharynx were unremarkable The patient tolerated the procedure well without difficulty. COMPLICATIONS : None SPECIMENS: Duodenal biopsies Gastric biopsies Distal esophageal biopsies DISPOSITION: Transfer back to the floor Stable PLAN: 1. Await for biopsy result 2. Will place pt on Protonix 40 mg p.o. daily 3. Nystatin swish and swallow 5 mL p.o. three times a day 4. Resume GI soft diet advance as tolerated 5. I have reviewed the patient's previous CT scan from July from [facility] where she had a pancreatic cyst mass which was stable at about 1.8 cm in size This was compared to a previous CT scan in January where she had the same sized pancreatic mass. Currently her pancreatic mass from our CTs about 2.9 cm Recommend outpatient follow up at higher level of care for possible endoscopic ultrasound EUS and FNA of the pancreatic cyst . CA 19 nine and lipase levels are pending ALLEN,JASKARAN MD Feb 22, 2024 09:46
[2024-02-22] MEDS: NYSTATIN (MOUTH-THROAT) 500,000 UNITS/5 ML SUSP MT SCH (12:00)
--- NOTE | 2024-02-22 15:37 | DVHPN2 ---
Subjective Patient states that she still has nausea and vomitings well as generalized weakness. Reviewed: Care Plan, H&P, Labs, Medications, Previous Orders, Radiology Changes from previous H/P or p: No Changes General: Per HPI Objective Vitals Vital Signs Date Time Temp Pulse Resp B/P (MAP) Pulse Ox O2 Delivery O2 Flow Rate FiO2 02/22/24 13:00 98.1 85 16 128/99 (109) 97 98.1 02/22/24 09:37 Room Air 0 94 Intake/Output Intake and Output 02/22/24 07:00 Intake Total 2250 ml Output Total 2400 ml Balance -150 ml Intake Oral 1150 ml IV Total 1100 ml Output Urine Total 2400 ml General Appearance: Alert, Oriented X3, Cooperative, No acute distress HEENT: Atraumatic, PERRLA, EOMI, Mucous membr. moist/pink Neck: Supple Chest/Breasts: Discharge, Lesions, Other (IR drain left to abscess sign on chest. Wound dehiscence noted.) Cardiovascular: Regular rate, Normal S1, Normal S2, No murmurs, Gallops, Rubs Abdomen: Normal bowel sounds, Soft, No tenderness Musculoskeletal: Normal sensory function, Normal motor function Neuro: Cranial nerves 3-12 NL Psych/Mental Status: Mood NL Medications Current Medications Medications Dose Ordered Sig/Justino Route Start Time Stop Time Status Last Admin Dose Admin Sodium Chloride 10 ml Q8HR IV 02/15/24 22:00 02/22/24 06:00 10 ML Ondansetron HCl 4 mg Q4HP PRN IV 02/15/24 21:15 02/22/24 06:11 4 MG Docusate Sodium 100 mg BIDPRN PRN PO 02/15/24 21:15 02/21/24 18:34 100 MG Acetaminophen 650 mg Q6HP PRN PO 02/15/24 21:15 Vancomycin HCl 0 ml @ 0 mls/hr UD IV 02/15/24 22:45 UNV Nitroglycerin 0.4 mg Q5MINP PRN SL 02/16/24 05:45 Insulin Glargine 12 units DAILY SC 02/16/24 10:00 02/19/24 10:07 12 UNITS Insulin Human Regular ACHS SC 02/16/24 07:00 02/20/24 22:12 3 UNITS Dextrose 50 ml UD PRN IV 02/16/24 03:00 Ibuprofen 600 mg Q6HP PRN PO 02/15/24 23:00 Carvedilol 3.125 mg BID PO 02/16/24 10:00 02/21/24 21:23 3.125 MG Losartan Potassium 50 mg DAILY PO 02/16/24 10:00 02/21/24 10:22 50 MG Pantoprazole Sodium 40 mg DAILY@0600 PO 02/16/24 06:15 02/22/24 06:12 40 MG Atorvastatin Calcium 10 mg HS PO 02/16/24 22:00 02/21/24 21:22 10 MG Diagnostic Test (Pha) 1 strip ACHS 02/16/24 07:00 02/22/24 11:45 1 STRIP Sodium Chloride 1,000 ml @ 75 mls/hr [id number] IV 02/16/24 09:30 02/21/24 21:29 75 MLS/HR Doxycycline Hyclate 250 ml @ 125 mls/hr Q12H IV 02/16/24 10:00 02/22/24 10:51 125 MLS/HR Hydromorphone HCl 1 mg Q4HP PRN IV 02/17/24 15:15 02/22/24 10:55 1 MG Metoclopramide HCl 10 mg Q8HPRN PRN IV 02/21/24 16:45 02/21/24 21:22 10 MG Levofloxacin/ Dextrose 100 ml @ 100 mls/hr DAILY@1800 IV 02/21/24 18:00 Nystatin 5 ml QID MT 02/22/24 12:00 Laboratory Results Laboratory Tests 02/22/24 05:34 Chemistry Test 02/22/24 05:34 Calcium Level 8.5 mg/dL (8.7-10.4) L Lipid panel Test 02/22/24 05:34 Lipase 20 U/L (12-53) Urinalysis Test 02/16/24 09:00 Urine Color Yellow (Yellow) Urine Clarity Cloudy (Clear) H Urine pH 7.5 (5.0-9.0) Urine Specific [place] 1.010 (1.001-1.035) Urine Protein 1+ (Negative) H Urine Ketones Negative (Negative) Urine Blood 3+ /uL (Negative) H Urine Nitrite Negative (Negative) Urine Bilirubin Negative (Negative) Urine Urobilinogen Normal mg/dL (Negative) Urine Leukocyte Esterase 3+ /uL (Negative) Urine RBC 131 /hpf (0 - 4) Urine WBC 125 /hpf (0 - 5) Urine WBC Clumps Present /hpf (None Seen) Urine Squamous Epithelial Cells Few /hpf (<5) Urine Bacteria Many /hpf (None Seen) H Urine Glucose Normal mg/dL (Normal) Microbiology Microbiology Date/Time Source Procedure Growth Status 02/19/24 12:45 Aspirate Gram Stain - Final Resulted 02/19/24 12:45 Aspirate Body Fluid Culture - Preliminary Resulted 02/15/24 14:45 Blood Blood Culture - Final NO GROWTH AFTER 5 DAYS OF INCUBATION. Complete Labs and/or images reviewed: Labs reviewed by me, Image(s) reviewed by me Assessment/Plan Assessment/Plan Impression: -status post bilateral mastectomy with wound dehiscence and abscess formation -breast cancer -status post ileal conduit -bladder outlet obstruction -pancreatic mass -intractable nausea and vomiting -primary hypertension -history of PE -dyslipidemia -diabetes mellitus -bilateral lower extremity amputations Plan: Events: Patient underwent EGD, with findings reviewed. Patient also had oncology consultation with recommendations reviewed. -MRI of the brain -nystatin swish and swallow -continue doxycycline and Levaquin -IV potassium replacement -continue antihypertensives -regular insulin sliding scale -oncology consultation: Recommendations reviewed. CA 19-9 pending -repeat labs in a.m. Total time spent with patient discussing and formulating plan of care: 35 minutes. This medical document was created using an electronic medical record system with [employer] dictation system. Although this document has been carefully reviewed, there may still be some phonetic and typographical errors. These areas are purely typographical due to imperfections of the software programs, and do not reflect any compromise in the patient's medical care. Plan discussed with: Patient, Other (RN) My Orders Orders - HALLIE MACIEL [employer] MA[employer] Procedure Category Date Status Time Obtain Mr From Other ORDERS 02/21/24 Transmitted Facility 16:40 Carbohydrate Antigen LAB 02/21/24 In Process 19-9 Metoclopramide PHA 02/21/24 In Process Injection (Reglan 16:45 * [facility] [employer] Clerk CONS 02/21/24 Transmitted 16:40 Levofloxacin 500mg PHA 02/21/24 In Process (Levaquin 500mg/ 100m 18:00 Potassium Chl Jeffrey PHA 02/22/24 Verified KCL 15:30 Basic Metabolic Panel LAB 02/23/24 Verified 04:00 Magnesium LAB 02/23/24 Verified 04:00 Brain Head Wo Contrast MRI 02/22/24 Verified 15:29 Date of Service: Feb 22, 2024 Billing Provider: HALLIE MACIEL NP Common Visit Codes: [id number] INP/OBS CARE(HIGH) HALLIE MACIEL NP Feb 22, 2024 15:37
--- NOTE | 2024-02-22 16:56 | DVH ---
MRI BRAIN WITH CONTRAST CLINICAL HISTORY: R/O METS TECHNIQUE: Multiplanar multisequence images of the brain were obtained prior to and following intravenous admini stration of contrast. 10/10 cc of gadavist contrast from a prefilled syringe was administered intravenously. Comparison: None FINDINGS: [Findings] There is no restricted diffusion. There are [id number] chronic small-vessel ischemic changes in the supratentorial white matter. There is no pathologic enhancement. There is no evidence of hemorrh age, mass, mass effect or midline shift. There is no hydrocephalus or extra-axial fluid collection. T he visualized intracranial vasculature demonstrates appropriate flow-voids. The sagittal midline stru ctures appear unremarkable. The craniocervical junction is within normal limits. The calvarium demons trates normal marrow signal. The paranasal sinuses and mastoid air cells are clear. IMPRESSION: 1. There is no acute intracranial process. There is no evidence of brain metastasis. 2. [id number] chronic small-vessel supratentorial white matter ischemic changes. HS:Y
[2024-02-22] MEDS: POTASSIUM CHLORIDE 40 MEQ, LIDOCAINE 1% (LOCAL ANESTH.) 4 ML in SODIUM CHL 0.9% 250 ML IV ONE (17:42)
[2024-02-22] MEDS: ONDANSETRON HCL 4 MG/2 ML VIAL IV ONE (21:34)
[2024-02-23 01:00] VITALS: BP 140/49; PULSE 86; RESP 17; TEMP 97.8; O2SAT 97
[2024-02-23 05:00] VITALS: BP 109/33; PULSE 81; RESP 17; TEMP 97.7; O2SAT 94
[2024-02-23 07:23] LABS: Potassium 3.6 mmol/L (3.5-5.1)
[2024-02-23 07:24] LABS: Anion Gap 8 (5-15); Calcium 8.9 mg/dL (8.7-10.4); Carbon Dioxide 22 mmol/L (20-31)
[2024-02-23 07:28] LABS: Chloride 116 mmol/L (98-107); Sodium 146 mmol/L (136-145)
[2024-02-23 07:32] LABS: Blood Urea Nitrogen 8 mg/dL (9-23); Glucose 160 mg/dL (74-106); Magnesium 1.5 mg/dL (1.6-2.6)
[2024-02-23 08:56] VITALS: BP 115/40; PULSE 89; RESP 17; TEMP 98; O2SAT 93
--- NOTE | 2024-02-23 11:43 | DVHPN2 ---
Subjective Patient states that she still has nausea and vomitings well as generalized weakness. Reviewed: Care Plan, H&P, Labs, Medications, Previous Orders, Radiology Changes from previous H/P or p: No Changes General: Per HPI Objective Vitals Vital Signs Date Time Temp Pulse Resp B/P (MAP) Pulse Ox O2 Delivery O2 Flow Rate FiO2 02/23/24 10:03 89 115/40 02/23/24 08:56 98.0 17 93 98.0 02/22/24 20:00 Room Air* 0 21 Intake/Output Intake and Output 02/23/24 07:00 Intake Total 2075 ml Output Total 1450 ml Balance 625 ml Intake Oral 1800 ml IV Total 275 ml Output Urine Total 1400 ml Drainage Total 50 ml General Appearance: Alert, Oriented X3, Cooperative, No acute distress HEENT: Atraumatic, PERRLA, EOMI, Mucous membr. moist/pink Neck: Supple Chest/Breasts: Discharge, Lesions, Other (IR drain left to abscess sign on chest. Wound dehiscence noted.) Cardiovascular: Regular rate, Normal S1, Normal S2, No murmurs, Gallops, Rubs Abdomen: Normal bowel sounds, Soft, No tenderness Musculoskeletal: Normal sensory function, Normal motor function Neuro: Cranial nerves 3-12 NL Psych/Mental Status: Mood NL Medications Current Medications Medications Dose Ordered Sig/Justino Route Start Time Stop Time Status Last Admin Dose Admin Sodium Chloride 10 ml Q8HR IV 02/15/24 22:00 02/23/24 05:43 10 ML Ondansetron HCl 4 mg Q4HP PRN IV 02/15/24 21:15 02/23/24 06:34 4 MG Docusate Sodium 100 mg BIDPRN PRN PO 02/15/24 21:15 02/21/24 18:34 100 MG Acetaminophen 650 mg Q6HP PRN PO 02/15/24 21:15 Vancomycin HCl 0 ml @ 0 mls/hr UD IV 02/15/24 22:45 UNV Nitroglycerin 0.4 mg Q5MINP PRN SL 02/16/24 05:45 Insulin Glargine 12 units DAILY SC 02/16/24 10:00 02/19/24 10:07 12 UNITS Insulin Human Regular ACHS SC 02/16/24 07:00 02/20/24 22:12 3 UNITS Dextrose 50 ml UD PRN IV 02/16/24 03:00 Carvedilol 3.125 mg BID PO 02/16/24 10:00 02/23/24 10:03 3.125 MG Losartan Potassium 50 mg DAILY PO 02/16/24 10:00 02/21/24 10:22 50 MG Pantoprazole Sodium 40 mg DAILY@0600 PO 02/16/24 06:15 02/23/24 05:43 40 MG Atorvastatin Calcium 10 mg HS PO 02/16/24 22:00 02/22/24 21:06 10 MG Diagnostic Test (Pha) 1 strip ACHS 02/16/24 07:00 02/23/24 05:50 1 STRIP Doxycycline Hyclate 250 ml @ 125 mls/hr Q12H IV 02/16/24 10:00 02/23/24 10:00 125 MLS/HR Hydromorphone HCl 1 mg Q4HP PRN IV 02/17/24 15:15 02/23/24 06:30 1 MG Metoclopramide HCl 10 mg Q8HPRN PRN IV 02/21/24 16:45 02/23/24 10:03 10 MG Levofloxacin/ Dextrose 100 ml @ 100 mls/hr DAILY@1800 IV 02/21/24 18:00 Nystatin 5 ml QID MT 02/22/24 12:00 02/23/24 05:43 5 ML Magnesium Sulfate/ Dextrose 100 ml @ 100 mls/hr Q1HR IV 02/23/24 10:00 02/23/24 11:59 Laboratory Results Laboratory Tests 02/22/24 05:34 02/23/24 06:07 Chemistry Test 02/23/24 06:07 Calcium Level 8.9 mg/dL (8.7-10.4) Magnesium Level 1.5 mg/dL (1.6-2.6) L Urinalysis Test 02/16/24 09:00 Urine Color Yellow (Yellow) Urine Clarity Cloudy (Clear) H Urine pH 7.5 (5.0-9.0) Urine Specific [place] 1.010 (1.001-1.035) Urine Protein 1+ (Negative) H Urine Ketones Negative (Negative) Urine Blood 3+ /uL (Negative) H Urine Nitrite Negative (Negative) Urine Bilirubin Negative (Negative) Urine Urobilinogen Normal mg/dL (Negative) Urine Leukocyte Esterase 3+ /uL (Negative) Urine RBC 131 /hpf (0 - 4) Urine WBC 125 /hpf (0 - 5) Urine WBC Clumps Present /hpf (None Seen) Urine Squamous Epithelial Cells Few /hpf (<5) Urine Bacteria Many /hpf (None Seen) H Urine Glucose Normal mg/dL (Normal) Microbiology Microbiology Date/Time Source Procedure Growth Status 02/19/24 12:45 Aspirate Gram Stain - Final Resulted 02/19/24 12:45 Aspirate Body Fluid Culture - Preliminary Resulted 02/15/24 14:45 Blood Blood Culture - Final NO GROWTH AFTER 5 DAYS OF INCUBATION. Complete Labs and/or images reviewed: Labs reviewed by me, Image(s) reviewed by me Assessment/Plan Assessment/Plan Impression: -status post bilateral mastectomy with wound dehiscence and abscess formation -breast cancer -status post ileal conduit -bladder outlet obstruction -pancreatic mass, rule out pancreatic cancer -intractable nausea and vomiting -primary hypertension -history of PE -dyslipidemia -diabetes mellitus -bilateral lower extremity amputations -hypomagnesemia Plan: Events: CA 19-9 elevated at 40. Records from [facility] system obtained with pancreatic mass now larger. MRI of the brain negative for any metastatic disease. Oncology consultation as well as Gastroenterology consultation, recommendations reviewed. Discussed with patient plan of care including need for EUS. Patient was agreeable to be transferred to higher level of care. -MRI of the brain: Reviewed -nystatin swish and swallow -continue doxycycline and Levaquin -magnesium replacement -continue antihypertensives -regular insulin sliding scale -oncology consultation: Recommendations reviewed. CA 19-9: 40 -repeat labs in a.m. -start Clinimix -social service consultation to transfer to higher level of care Total time spent with patient discussing and formulating plan of care: 35 minutes. Total time spent with patient and family regarding advance care plannin minutes. This medical document was created using an electronic medical record system with [employer] dictation system. Although this document has been carefully reviewed, there may still be some phonetic and typographical errors. These areas are purely typographical due to imperfections of the software programs, and do not reflect any compromise in the patient's medical care. Plan discussed with: Patient, Other (RN) My Orders Orders - HALLIE MACIEL NP Procedure Category Date Status Time Brain Head Wo W MRI 02/22/24 Resulted Contrast 15:29 Dietary NOTICE 02/22/24 Transmitted Recommendations 16:06 Magnesium Sulfate PHA 02/23/24 In Process 1gm/100ml 10:00 Date of Service: Feb 23, 2024 Billing Provider: HALLIE MACIEL NP Common Visit Codes: [id number] INP/OBS CARE(HIGH) Secondary Visit Codes: [id number] CARE PLAN 30 MINUTES HALLIE MACIEL NP Feb 23, 2024 11:43
[2024-02-23] MEDS ORDERED: CLINIMIX PER PHARMACY 0 ML IV SCH (11:45)
[2024-02-23 12:58] VITALS: BP 127/39; PULSE 78; RESP 17; TEMP 97.6; O2SAT 95
[2024-02-23] MEDS: MAGNESIUM SULFATE 1GM/100ML 100 ML IV SCH (14:33)
--- NOTE | 2024-02-23 16:16 | DVH ---
Left UPPER EXTREMITY VENOUS DOPPLER CLINICAL HISTORY: R/O DVT TECHNIQUE: Left upper extremity venous Doppler study was performed. Comparison: None FINDINGS: There is occlusive thrombus in the left cephalic vein. The left internal jugular, subclavian, axillary, brachial, basilic, radial and ulnar veins appear pat ent with normal augmentation, phasicity, compressibility and color-flow. IMPRESSION: 1. Occlusive thrombus in the left cephalic vein. HS:Y
[2024-02-23 16:44] VITALS: BP 135/60; PULSE 80; RESP 16; TEMP 98.4; O2SAT 96
--- NOTE | 2024-02-23 17:01 | DVHPN2 ---
Progress Note - Dictate Date Seen: Feb 23, 2024 Medical Necessity Reason Pt with a Central, PICC or Fol: No Subjective Patient is resting comfortably Undergoing an ultrasound guided midline placement Patient concerned about her weight loss CA 19-9 mildly elevated to 40 EGD findings reviewed with candidal esophagitis and mild gastritis vital signs Vital Sign Date Time Temp Pulse Resp B/P (MAP) Pulse Ox O2 Delivery O2 Flow Rate FiO2 02/23/24 16:48 80 16 135/60 02/23/24 16:44 98.4 96 98.4 02/22/24 20:00 Room Air* 0 21 Total Intake and Output 02/22/24 02/22/24 02/23/24 15:00 23:00 07:00 Intake Total 275 ml 800 ml 1000 ml Output Total 50 ml 1400 ml Balance 275 ml 750 ml -400 ml medications Current Medications Medications Dose Ordered Sig/Justino Route Start Time Stop Time Status Last Admin Dose Admin Sodium Chloride 10 ml Q8HR IV 02/15/24 22:00 02/23/24 14:00 10 ML Ondansetron HCl 4 mg Q4HP PRN IV 02/15/24 21:15 02/23/24 16:47 4 MG Docusate Sodium 100 mg BIDPRN PRN PO 02/15/24 21:15 02/21/24 18:34 100 MG Acetaminophen 650 mg Q6HP PRN PO 02/15/24 21:15 Vancomycin HCl 0 ml @ 0 mls/hr UD IV 02/15/24 22:45 UNV Nitroglycerin 0.4 mg Q5MINP PRN SL 02/16/24 05:45 Insulin Glargine 12 units DAILY SC 02/16/24 10:00 02/19/24 10:07 12 UNITS Insulin Human Regular ACHS SC 02/16/24 07:00 02/20/24 22:12 3 UNITS Dextrose 50 ml UD PRN IV 02/16/24 03:00 Carvedilol 3.125 mg BID PO 02/16/24 10:00 02/23/24 10:03 3.125 MG Losartan Potassium 50 mg DAILY PO 02/16/24 10:00 02/21/24 10:22 50 MG Pantoprazole Sodium 40 mg DAILY@0600 PO 02/16/24 06:15 02/23/24 05:43 40 MG Atorvastatin Calcium 10 mg HS PO 02/16/24 22:00 02/22/24 21:06 10 MG Diagnostic Test (Pha) 1 strip ACHS 02/16/24 07:00 02/23/24 11:46 1 STRIP Doxycycline Hyclate 250 ml @ 125 mls/hr Q12H IV 02/16/24 10:00 02/23/24 10:00 125 MLS/HR Hydromorphone HCl 1 mg Q4HP PRN IV 02/17/24 15:15 02/23/24 16:48 1 MG Metoclopramide HCl 10 mg Q8HPRN PRN IV 02/21/24 16:45 02/23/24 10:03 10 MG Levofloxacin/ Dextrose 100 ml @ 100 mls/hr DAILY@1800 IV 02/21/24 18:00 Nystatin 5 ml QID MT 02/22/24 12:00 02/23/24 12:00 5 ML Amino Acids 0 ml @ 0 mls/hr PER PHARMACY IV 02/23/24 11:45 objective General Appearance: Alert, Oriented X3, Cooperative, No acute distress HEENT: Atraumatic, PERRLA, EOMI, Mucous membr. moist/pink Neck: Supple Chest/Breasts: Discharge, Lesions, Other (IR drain left to abscess sign on chest. Wound dehiscence noted.) Cardiovascular: Regular rate, Normal S1, Normal S2, No murmurs, Gallops, Rubs Abdomen: Normal bowel sounds, Soft, No tenderness; patient has ileostomy and an ileal conduit because of history of large sacral decub Musculoskeletal: Normal sensory function, Normal motor function Neuro: Cranial nerves 3-12 NL Psych/Mental Status: Mood NL laboratory and microbiology Laboratory Tests 02/23/24 06:07 02/22/24 05:34 Test 02/23/24 06:07 Range/Units Serum Glucose 160 H 74-106 mg/dL Problems(with codes): (1) Abnormal finding on GI tract imaging (2) Pancreatic mass (3) Nausea and vomiting (4) Cellulitis Prognosis Plan Patient is awaiting possible transfer to higher level of care for endoscopic ultrasound with FNA Patient was notified that this may not be easy because of the holiday schedule over the next few days If the patient is stable and there was no ongoing acute issues then possibly this could be arranged as an outpatient Patient is concern that she will not be able to get an early referral for the same Dietary Evaluation Review Comments: Suggested Theo BID for wound healing Expected Outcomes/Goals: Gradual healed wounds, gradual weight loss and controlled DM Plan discussed with: Patient JASKARAN VILLA MD Feb 23, 2024 17:01
[2024-02-23] MEDS ORDERED: MAGNESIUM SULFATE 1GM/100ML 100 ML IV ONE (17:30)
[2024-02-23] MEDS: AMINO ACID INFUSION IN D10W 1,000 ML IV SCH (20:51)
[2024-02-23 21:00] VITALS: BP 109/67; PULSE 100; RESP 18; TEMP 98.4; O2SAT 97
[2024-02-23] MEDS: DOXYCYCLINE 100 MG TAB/CAP PO SCH (21:28)
[2024-02-23] MEDS: ENOXAPARIN SOD 60 MG/0.6 ML SYRINGE SC SCH (21:30)
[2024-02-24 01:00] VITALS: BP 198/37; PULSE 82; RESP 18; TEMP 98.2; O2SAT 90
[2024-02-24 05:00] VITALS: BP 107/33; PULSE 78; RESP 19; TEMP 97.9; O2SAT 95
[2024-02-24 08:10] LABS: Alkaline Phosphatase 90 U/L (46-116); Anion Gap 6 (5-15); Aspartate Aminotransferase 14 U/L (13-40); Blood Urea Nitrogen 11 mg/dL (9-23); Carbon Dioxide 24 mmol/L (20-31); Magnesium 1.8 mg/dL (1.6-2.6); Phosphorus 2.4 mg/dL (2.4-5.1); Sodium 142 mmol/L (136-145)
[2024-02-24 08:26] LABS: Alanine Aminotransferase < 9 U/L (7-40); Albumin 2.6 g/dL (3.2-4.8); Bilirubin, Total 0.2 mg/dL (0.2-1.0); Calcium 8.5 mg/dL (8.7-10.4); Chloride 112 mmol/L (98-107); Glucose 152 mg/dL (74-106); Potassium 3.1 mmol/L (3.5-5.1); Total Protein 4.8 g/dL (5.7-8.2)
[2024-02-24 09:00] VITALS: BP 107/31; PULSE 86; RESP 16; TEMP 98.1; O2SAT 96
--- NOTE | 2024-02-24 12:54 | DVHPN2 ---
Subjective She is complaining of nausea and vomiting Abdominal pain Blood pressure is on the low side Potassium is 3.1 Reviewed: Care Plan, H&P, Labs, Medications, Previous Orders, Radiology Changes from previous H/P or p: Changes General: Per HPI Objective Vitals Vital Signs Date Time Temp Pulse Resp B/P (MAP) Pulse Ox O2 Delivery O2 Flow Rate FiO2 02/24/24 10:40 78 18 110/64 02/24/24 09:00 98.1 96 98.1 02/22/24 20:00 Room Air* 0 21 Intake/Output Intake and Output 02/24/24 07:00 Intake Total 1700 ml Output Total 1725 ml Balance -25 ml Intake Oral 1475 ml IV Total 225 ml Output Urine Total 1725 ml General Appearance: Alert, Oriented X3, Cooperative, No acute distress HEENT: Atraumatic, PERRLA, EOMI, Mucous membr. moist/pink Neck: Supple Chest/Breasts: Discharge, Lesions, Other (IR drain left to abscess sign on chest. Wound dehiscence noted.) Cardiovascular: Regular rate, Normal S1, Normal S2, No murmurs, Gallops, Rubs Abdomen: Normal bowel sounds, Soft, No tenderness Musculoskeletal: Normal sensory function, Normal motor function Neuro: Cranial nerves 3-12 NL Psych/Mental Status: Mood NL Medications Current Medications Medications Dose Ordered Sig/Justino Route Start Time Stop Time Status Last Admin Dose Admin Sodium Chloride 10 ml Q8HR IV 02/15/24 22:00 02/24/24 05:21 10 ML Ondansetron HCl 4 mg Q4HP PRN IV 02/15/24 21:15 02/24/24 12:11 4 MG Docusate Sodium 100 mg BIDPRN PRN PO 02/15/24 21:15 02/21/24 18:34 100 MG Acetaminophen 650 mg Q6HP PRN PO 02/15/24 21:15 Vancomycin HCl 0 ml @ 0 mls/hr UD IV 02/15/24 22:45 UNV Nitroglycerin 0.4 mg Q5MINP PRN SL 02/16/24 05:45 Insulin Glargine 12 units DAILY SC 02/16/24 10:00 02/19/24 10:07 12 UNITS Insulin Human Regular ACHS SC 02/16/24 07:00 02/24/24 05:27 3 UNITS Dextrose 50 ml UD PRN IV 02/16/24 03:00 Carvedilol 3.125 mg BID PO 02/16/24 10:00 02/23/24 20:55 3.125 MG Losartan Potassium 50 mg DAILY PO 02/16/24 10:00 02/21/24 10:22 50 MG Pantoprazole Sodium 40 mg DAILY@0600 PO 02/16/24 06:15 02/24/24 05:21 40 MG Atorvastatin Calcium 10 mg HS PO 02/16/24 22:00 02/23/24 20:54 10 MG Diagnostic Test (Pha) 1 strip ACHS 02/16/24 07:00 02/24/24 11:30 1 STRIP Hydromorphone HCl 1 mg Q4HP PRN IV 02/17/24 15:15 02/24/24 10:10 1 MG Metoclopramide HCl 10 mg Q8HPRN PRN IV 02/21/24 16:45 02/24/24 10:06 10 MG Levofloxacin/ Dextrose 100 ml @ 100 mls/hr DAILY@1800 IV 02/21/24 18:00 Hold Nystatin 5 ml QID MT 02/22/24 12:00 02/24/24 12:11 5 ML Amino Acids 0 ml @ 0 mls/hr PER PHARMACY IV 02/23/24 11:45 Doxycycline Monohydrate 100 mg Q12HR PO 02/23/24 22:00 02/24/24 10:07 100 MG Amino Acids/ Electrolytes/ Dextrose 1,000 ml @ 41 mls/hr DAILY@2200 IV 02/23/24 22:00 02/23/24 20:51 41 MLS/HR Enoxaparin Sodium 50 mg Q12HR SC 02/23/24 22:00 02/24/24 10:07 50 MG Laboratory Results Laboratory Tests 02/22/24 05:34 02/24/24 07:32 Chemistry Test 02/24/24 07:32 Albumin 2.6 g/dL (3.2-4.8) L Calcium Level 8.5 mg/dL (8.7-10.4) L Magnesium Level 1.8 mg/dL (1.6-2.6) Phosphorus Level 2.4 mg/dL (2.4-5.1) Total Protein 4.8 g/dL (5.7-8.2) L LFT Test 02/24/24 07:32 Alanine Aminotransferase (ALT) < 9 U/L (7-40) Alkaline Phosphatase 90 U/L (46-116) Aspartate Amino Transferase (AST) 14 U/L (13-40) Total Bilirubin 0.2 mg/dL (0.2-1.0) Urinalysis Test 02/16/24 09:00 Urine Color Yellow (Yellow) Urine Clarity Cloudy (Clear) H Urine pH 7.5 (5.0-9.0) Urine Specific [place] 1.010 (1.001-1.035) Urine Protein 1+ (Negative) H Urine Ketones Negative (Negative) Urine Blood 3+ /uL (Negative) H Urine Nitrite Negative (Negative) Urine Bilirubin Negative (Negative) Urine Urobilinogen Normal mg/dL (Negative) Urine Leukocyte Esterase 3+ /uL (Negative) Urine RBC 131 /hpf (0 - 4) Urine WBC 125 /hpf (0 - 5) Urine WBC Clumps Present /hpf (None Seen) Urine Squamous Epithelial Cells Few /hpf (<5) Urine Bacteria Many /hpf (None Seen) H Urine Glucose Normal mg/dL (Normal) Microbiology Microbiology Date/Time Source Procedure Growth Status 02/19/24 12:45 Aspirate Gram Stain - Final Resulted 02/19/24 12:45 Aspirate Body Fluid Culture - Preliminary Resulted 02/15/24 14:45 Blood Blood Culture - Final NO GROWTH AFTER 5 DAYS OF INCUBATION. Complete Assessment/Plan Assessment/Plan Intractable nausea and vomiting Protein malnutrition Hypokalemia Breast cancer Status post ileal conduit Bladder outlet obstruction Pancreatic mass, unknown malignant or benign History of pulmonary embolism Dyslipidemia Type 2 diabetes Right BKA and left AKA Hypomagnesemia Plan Bolus 500 mL of normal saline Continue Reglan and Zofran as needed Advance the diet as tolerated Clinimix Replace potassium Lantus Hold losartan for now due to hypotension Plan discussed with: Patient Date of Service: Feb 24, 2024 Billing Provider: BERNABE HINKLE MD Common Visit Codes: [id number] INP/OBS CARE(HIGH) BERNABE HINKLE MD Feb 24, 2024 12:54
[2024-02-24 13:00] VITALS: BP 99/28; PULSE 84; RESP 17; TEMP 98.1; O2SAT 96
[2024-02-24] MEDS: POTASSIUM PHOSPHATE 26.4 MEQ in SODIUM CHL 0.9% 100 ML IV ONE (13:11)
[2024-02-24 16:59] VITALS: BP 140/43; PULSE 87; RESP 18; TEMP 98; O2SAT 98
--- NOTE | 2024-02-24 20:44 | DVHPN2 ---
Progress Note - Dictate Date Seen: Feb 24, 2024 Medical Necessity Reason Pt with a Central, PICC or Fol: No Subjective Patient is resting comfortably No new complaints Patient does not like soft diet and wants to go to regular diet CA 19-9 mildly elevated to 40 EGD findings reviewed with candidal esophagitis and mild gastritis vital signs Vital Sign Date Time Temp Pulse Resp B/P (MAP) Pulse Ox O2 Delivery O2 Flow Rate FiO2 02/24/24 17:43 74 18 120/64 02/24/24 16:59 98.0 98 98.0 02/22/24 20:00 Room Air* 0 21 Total Intake and Output 02/23/24 02/23/24 02/24/24 15:00 23:00 07:00 Intake Total 125 ml 975 ml 600 ml Output Total 425 ml 1300 ml Balance 125 ml 550 ml -700 ml medications Current Medications Medications Dose Ordered Sig/Justino Route Start Time Stop Time Status Last Admin Dose Admin Sodium Chloride 10 ml Q8HR IV 02/15/24 22:00 02/24/24 14:10 10 ML Ondansetron HCl 4 mg Q4HP PRN IV 02/15/24 21:15 02/24/24 17:12 4 MG Docusate Sodium 100 mg BIDPRN PRN PO 02/15/24 21:15 02/21/24 18:34 100 MG Acetaminophen 650 mg Q6HP PRN PO 02/15/24 21:15 Vancomycin HCl 0 ml @ 0 mls/hr UD IV 02/15/24 22:45 UNV Nitroglycerin 0.4 mg Q5MINP PRN SL 02/16/24 05:45 Insulin Glargine 12 units DAILY SC 02/16/24 10:00 02/19/24 10:07 12 UNITS Insulin Human Regular ACHS SC 02/16/24 07:00 02/24/24 17:20 3 UNITS Dextrose 50 ml UD PRN IV 02/16/24 03:00 Carvedilol 3.125 mg BID PO 02/16/24 10:00 02/23/24 20:55 3.125 MG Pantoprazole Sodium 40 mg DAILY@0600 PO 02/16/24 06:15 02/24/24 05:21 40 MG Atorvastatin Calcium 10 mg HS PO 02/16/24 22:00 02/23/24 20:54 10 MG Diagnostic Test (Pha) 1 strip ACHS 02/16/24 07:00 02/24/24 17:02 1 STRIP Hydromorphone HCl 1 mg Q4HP PRN IV 02/17/24 15:15 02/24/24 17:13 1 MG Metoclopramide HCl 10 mg Q8HPRN PRN IV 02/21/24 16:45 02/24/24 10:06 10 MG Levofloxacin/ Dextrose 100 ml @ 100 mls/hr DAILY@1800 IV 02/21/24 18:00 Hold Nystatin 5 ml QID MT 02/22/24 12:00 02/24/24 17:02 5 ML Amino Acids 0 ml @ 0 mls/hr PER PHARMACY IV 02/23/24 11:45 Doxycycline Monohydrate 100 mg Q12HR PO 02/23/24 22:00 02/24/24 10:07 100 MG Amino Acids/ Electrolytes/ Dextrose 1,000 ml @ 41 mls/hr DAILY@2200 IV 02/23/24 22:00 02/23/24 20:51 41 MLS/HR Enoxaparin Sodium 50 mg Q12HR SC 02/23/24 22:00 02/24/24 10:07 50 MG objective General Appearance: Alert, Oriented X3, Cooperative, No acute distress HEENT: Atraumatic, PERRLA, EOMI, Mucous membr. moist/pink Neck: Supple Chest/Breasts: Discharge, Lesions, Other (IR drain left to abscess sign on chest. Wound dehiscence noted.) Cardiovascular: Regular rate, Normal S1, Normal S2, No murmurs, Gallops, Rubs Abdomen: Normal bowel sounds, Soft, No tenderness; patient has ileostomy and an ileal conduit because of history of large sacral decub Musculoskeletal: Normal sensory function, Normal motor function Neuro: Cranial nerves 3-12 NL Psych/Mental Status: Mood NL laboratory and microbiology Laboratory Tests 02/24/24 07:32 02/22/24 05:34 Test 02/24/24 07:32 Range/Units Serum Glucose 152 H 74-106 mg/dL Problems(with codes): (1) Arianna esophagitis (2) Cellulitis (3) Nausea and vomiting (4) Pancreatic mass (5) Abnormal finding on GI tract imaging Prognosis Plan Protonix 40 mg p.o. daily Carafate 1 g p.o. twice a day Regular diet Monitor labs Patient is awaiting referral to higher level of care for endoscopic ultrasound possible FNA pancreatic mass Dietary Evaluation Review Comments: Suggested Theo BID for wound healing Expected Outcomes/Goals: Gradual healed wounds, gradual weight loss and controlled DM Plan discussed with: Patient, Other (Nurse) JASKARAN VILLA MD Feb 24, 2024 20:44
[2024-02-24 21:00] VITALS: BP 111/39; PULSE 98; RESP 19; TEMP 98; O2SAT 98
[2024-02-25 01:00] VITALS: BP 101/36; PULSE 78; RESP 19; TEMP 98.2; O2SAT 93
[2024-02-25 05:00] VITALS: BP 133/45; PULSE 88; RESP 19; TEMP 98.1; O2SAT 96
[2024-02-25 09:00] VITALS: BP 124/43; PULSE 80; RESP 20; TEMP 97.9; O2SAT 95
[2024-02-25 10:01] LABS: Alkaline Phosphatase 91 U/L (46-116); Anion Gap 8 (5-15); Aspartate Aminotransferase 15 U/L (13-40); Blood Urea Nitrogen 14 mg/dL (9-23); Carbon Dioxide 24 mmol/L (20-31); Magnesium 1.8 mg/dL (1.6-2.6); Phosphorus 2.9 mg/dL (2.4-5.1); Sodium 144 mmol/L (136-145); Triglycerides 52 mg/dL (< 150)
[2024-02-25 10:09] LABS: Alanine Aminotransferase < 9 U/L (7-40); Albumin 2.6 g/dL (3.2-4.8); Bilirubin, Total 0.2 mg/dL (0.2-1.0); Calcium 8.4 mg/dL (8.7-10.4); Chloride 112 mmol/L (98-107); Glucose 137 mg/dL (74-106); Potassium 3.4 mmol/L (3.5-5.1); Total Protein 4.9 g/dL (5.7-8.2)
--- NOTE | 2024-02-25 11:17 | DVHPN2 ---
Subjective No new complaints K+ is low Reviewed: Care Plan, H&P, Labs, Medications, Previous Orders, Radiology Changes from previous H/P or p: No Changes General: Per HPI Objective Vitals Vital Signs Date Time Temp Pulse Resp B/P (MAP) Pulse Ox O2 Delivery O2 Flow Rate FiO2 02/25/24 11:03 90 18 104/44 02/25/24 05:00 98.1 96 98.1 Intake/Output Intake and Output 02/25/24 07:00 Intake Total 1250 ml Output Total 1250 ml Balance 0 ml Intake Oral 1250 ml Output Urine Total 1250 ml General Appearance: Alert, Oriented X3, Cooperative, No acute distress HEENT: Atraumatic, PERRLA, EOMI, Mucous membr. moist/pink Neck: Supple Chest/Breasts: Discharge, Lesions, Other (IR drain left to abscess sign on chest. Wound dehiscence noted.) Cardiovascular: Regular rate, Normal S1, Normal S2, No murmurs, Gallops, Rubs Abdomen: Normal bowel sounds, Soft, No tenderness Musculoskeletal: Normal sensory function, Normal motor function Neuro: Cranial nerves 3-12 NL Psych/Mental Status: Mood NL Medications Current Medications Medications Dose Ordered Sig/Justino Route Start Time Stop Time Status Last Admin Dose Admin Sodium Chloride 10 ml Q8HR IV 02/15/24 22:00 02/25/24 05:36 10 ML Ondansetron HCl 4 mg Q4HP PRN IV 02/15/24 21:15 02/25/24 05:35 4 MG Docusate Sodium 100 mg BIDPRN PRN PO 02/15/24 21:15 02/21/24 18:34 100 MG Acetaminophen 650 mg Q6HP PRN PO 02/15/24 21:15 Vancomycin HCl 0 ml @ 0 mls/hr UD IV 02/15/24 22:45 UNV Nitroglycerin 0.4 mg Q5MINP PRN SL 02/16/24 05:45 Insulin Glargine 12 units DAILY SC 02/16/24 10:00 02/19/24 10:07 12 UNITS Insulin Human Regular ACHS SC 02/16/24 07:00 02/25/24 05:51 4 UNITS Dextrose 50 ml UD PRN IV 02/16/24 03:00 Carvedilol 3.125 mg BID PO 02/16/24 10:00 02/24/24 21:35 3.125 MG Pantoprazole Sodium 40 mg DAILY@0600 PO 02/16/24 06:15 02/25/24 05:34 40 MG Atorvastatin Calcium 10 mg HS PO 02/16/24 22:00 02/24/24 21:35 10 MG Diagnostic Test (Pha) 1 strip ACHS 02/16/24 07:00 02/25/24 10:51 1 STRIP Hydromorphone HCl 1 mg Q4HP PRN IV 02/17/24 15:15 02/25/24 11:03 1 MG Metoclopramide HCl 10 mg Q8HPRN PRN IV 02/21/24 16:45 02/25/24 11:03 10 MG Levofloxacin/ Dextrose 100 ml @ 100 mls/hr DAILY@1800 IV 02/21/24 18:00 Hold Nystatin 5 ml QID MT 02/22/24 12:00 02/25/24 05:34 5 ML Amino Acids 0 ml @ 0 mls/hr PER PHARMACY IV 02/23/24 11:45 Doxycycline Monohydrate 100 mg Q12HR PO 02/23/24 22:00 02/25/24 10:52 100 MG Amino Acids/ Electrolytes/ Dextrose 1,000 ml @ 41 mls/hr DAILY@2200 IV 02/23/24 22:00 02/24/24 22:35 41 MLS/HR Enoxaparin Sodium 50 mg Q12HR SC 02/23/24 22:00 02/25/24 10:56 50 MG Laboratory Results Laboratory Tests 02/22/24 05:34 02/25/24 08:55 Chemistry Test 02/25/24 08:55 Albumin 2.6 g/dL (3.2-4.8) L Calcium Level 8.4 mg/dL (8.7-10.4) L Magnesium Level 1.8 mg/dL (1.6-2.6) Phosphorus Level 2.9 mg/dL (2.4-5.1) Total Protein 4.9 g/dL (5.7-8.2) L Lipid panel Test 02/25/24 08:55 Triglycerides Level 52 mg/dL (< 150) LFT Test 02/25/24 08:55 Alanine Aminotransferase (ALT) < 9 U/L (7-40) Alkaline Phosphatase 91 U/L (46-116) Aspartate Amino Transferase (AST) 15 U/L (13-40) Total Bilirubin 0.2 mg/dL (0.2-1.0) Urinalysis Test 02/16/24 09:00 Urine Color Yellow (Yellow) Urine Clarity Cloudy (Clear) H Urine pH 7.5 (5.0-9.0) Urine Specific [place] 1.010 (1.001-1.035) Urine Protein 1+ (Negative) H Urine Ketones Negative (Negative) Urine Blood 3+ /uL (Negative) H Urine Nitrite Negative (Negative) Urine Bilirubin Negative (Negative) Urine Urobilinogen Normal mg/dL (Negative) Urine Leukocyte Esterase 3+ /uL (Negative) Urine RBC 131 /hpf (0 - 4) Urine WBC 125 /hpf (0 - 5) Urine WBC Clumps Present /hpf (None Seen) Urine Squamous Epithelial Cells Few /hpf (<5) Urine Bacteria Many /hpf (None Seen) H Urine Glucose Normal mg/dL (Normal) Microbiology Microbiology Date/Time Source Procedure Growth Status 02/19/24 12:45 Aspirate Gram Stain - Final Resulted 02/19/24 12:45 Aspirate Body Fluid Culture - Preliminary Resulted 02/15/24 14:45 Blood Blood Culture - Final NO GROWTH AFTER 5 DAYS OF INCUBATION. Complete Assessment/Plan Assessment/Plan Intractable nausea and vomiting Protein malnutrition Hypokalemia Breast cancer Status post ileal conduit Bladder outlet obstruction Pancreatic mass, unknown malignant or benign History of pulmonary embolism Dyslipidemia Type 2 diabetes Right BKA and left AKA Hypomagnesemia Plan 02/24/24: Bolus 500 mL of normal saline Continue Reglan and Zofran as needed Advance the diet as tolerated Clinimix Replace potassium Lantus Hold losartan for now due to hypotension 02/25/24: Replace K+ Clinimix Doxycycline Lantus Plan discussed with: Patient Date of Service: Feb 25, 2024 Billing Provider: BERNABE HINKLE MD Common Visit Codes: [id number] INP/OBS CARE(MOD) BERNABE HINKLE MD Feb 25, 2024 11:17
[2024-02-25 13:00] VITALS: BP 113/36; PULSE 85; RESP 20; TEMP 98.2; O2SAT 92
[2024-02-25] MEDS: POTASSIUM PHOSPHATE 22 MEQ in SODIUM CHL 0.9% 100 ML IV ONE (13:15)
[2024-02-25] MEDS: POTASSIUM CHL 20 Meq TABLET PO ONE (14:45)
[2024-02-25 17:00] VITALS: BP 144/57; PULSE 86; RESP 20; TEMP 98.2; O2SAT 96
[2024-02-25 21:00] VITALS: BP 119/58; PULSE 83; RESP 17; TEMP 98.2; O2SAT 95
--- NOTE | 2024-02-25 23:56 | DVHPN2 ---
Progress Note - Dictate Date Seen: Feb 25, 2024 Medical Necessity Reason Pt with a Central, PICC or Fol: No Subjective PLAN Patient is resting comfortably No new complaints Pt underwent wound care CA 19-9 mildly elevated to 40; lipase level is normal EGD findings reviewed with candidal esophagitis and mild gastritis Continue nystatin and Protonix vital signs Vital Sign Date Time Temp Pulse Resp B/P (MAP) Pulse Ox O2 Delivery O2 Flow Rate FiO2 02/25/24 23:01 83 119/58 02/25/24 22:54 17 02/25/24 21:00 98.2 95 98.2 Total Intake and Output 02/24/24 02/24/24 02/25/24 15:00 23:00 07:00 Intake Total 850 ml 400 ml Output Total 550 ml 700 ml Balance 300 ml -300 ml medications Current Medications Medications Dose Ordered Sig/Justino Route Start Time Stop Time Status Last Admin Dose Admin Sodium Chloride 10 ml Q8HR IV 02/15/24 22:00 02/25/24 23:03 10 ML Ondansetron HCl 4 mg Q4HP PRN IV 02/15/24 21:15 02/25/24 17:00 4 MG Docusate Sodium 100 mg BIDPRN PRN PO 02/15/24 21:15 02/21/24 18:34 100 MG Acetaminophen 650 mg Q6HP PRN PO 02/15/24 21:15 Vancomycin HCl 0 ml @ 0 mls/hr UD IV 02/15/24 22:45 UNV Nitroglycerin 0.4 mg Q5MINP PRN SL 02/16/24 05:45 Insulin Glargine 12 units DAILY SC 02/16/24 10:00 02/19/24 10:07 12 UNITS Insulin Human Regular ACHS SC 02/16/24 07:00 02/25/24 22:29 6 UNITS Dextrose 50 ml UD PRN IV 02/16/24 03:00 Carvedilol 3.125 mg BID PO 02/16/24 10:00 02/25/24 23:01 3.125 MG Pantoprazole Sodium 40 mg DAILY@0600 PO 02/16/24 06:15 02/25/24 05:34 40 MG Atorvastatin Calcium 10 mg HS PO 02/16/24 22:00 02/25/24 23:01 10 MG Diagnostic Test (Pha) 1 strip ACHS 02/16/24 07:00 02/25/24 22:00 1 STRIP Hydromorphone HCl 1 mg Q4HP PRN IV 02/17/24 15:15 02/25/24 22:24 1 MG Metoclopramide HCl 10 mg Q8HPRN PRN IV 02/21/24 16:45 02/25/24 22:22 10 MG Nystatin 5 ml QID MT 02/22/24 12:00 02/25/24 23:02 5 ML Amino Acids 0 ml @ 0 mls/hr PER PHARMACY IV 02/23/24 11:45 Doxycycline Monohydrate 100 mg Q12HR PO 02/23/24 22:00 02/25/24 23:00 100 MG Amino Acids/ Electrolytes/ Dextrose 1,000 ml @ 41 mls/hr DAILY@2200 IV 02/23/24 22:00 02/25/24 23:03 41 MLS/HR Enoxaparin Sodium 50 mg Q12HR SC 02/23/24 22:00 02/25/24 23:02 50 MG objective General Appearance: Alert, Oriented X3, Cooperative, No acute distress HEENT: Atraumatic, PERRLA, EOMI, Mucous membr. moist/pink Neck: Supple Chest/Breasts: Discharge, Lesions, Other (IR drain left to abscess sign on chest. Wound dehiscence noted.) Cardiovascular: Regular rate, Normal S1, Normal S2, No murmurs, Gallops, Rubs Abdomen: Normal bowel sounds, Soft, No tenderness; patient has ileostomy and an ileal conduit because of history of large sacral decub Musculoskeletal: Normal sensory function, Normal motor function Neuro: Cranial nerves 3-12 NL Psych/Mental Status: Mood NL laboratory and microbiology Laboratory Tests 02/25/24 08:55 02/22/24 05:34 Test 02/25/24 08:55 Range/Units Serum Glucose 137 H 74-106 mg/dL Problems(with codes): (1) Arianna esophagitis (2) Abnormal finding on GI tract imaging (3) Pancreatic mass (4) Nausea and vomiting (5) Cellulitis Prognosis PLAN No beds available at transfer facilities for the next two weeks I believe this patient can arrange her endoscopic ultrasound and FNA as an outpatient as there was no urgency Patient is familiar with and [place] contacts [place] who [place] been monitoring her pancreatic mass Patient can also follow up with me as an outpatient as needed Discharge planning as per hospitalist Dietary Evaluation Review Comments: Suggested Theo BID for wound healing Expected Outcomes/Goals: Gradual healed wounds, gradual weight loss and controlled DM Plan discussed with: Patient JASKARAN VILLA MD Feb 25, 2024 23:56
[2024-02-26 01:00] VITALS: BP 111/40; PULSE 84; RESP 18; TEMP 98.2; O2SAT 95
[2024-02-26 05:00] VITALS: BP 112/48; PULSE 75; RESP 18; TEMP 98.2; O2SAT 92
[2024-02-26 09:00] VITALS: BP 109/39; PULSE 79; RESP 18; TEMP 98.4; O2SAT 95
--- NOTE | 2024-02-26 09:31 | DVHPN2 ---
Progress Note - Dictate Date Seen: Feb 26, 2024 Has the PT tested + for MRSA If YES, has PT been informed?: Yes Medical Necessity Reason Pt with a Central, PICC or Fol: No Subjective Patient is still training from the left LINETTE drain. She is waiting to be transferred to higher level of care for EUS for pancreatic mass. vital signs Vital Sign Date Time Temp Pulse Resp B/P (MAP) Pulse Ox O2 Delivery O2 Flow Rate FiO2 02/26/24 07:00 79 18 109/39 02/26/24 05:00 98.2 92 98.2 Total Intake and Output 02/25/24 02/25/24 02/26/24 15:00 23:00 07:00 Intake Total 845 ml 1392 ml Output Total 50 ml 800 ml 800 ml Balance -50 ml 45 ml 592 ml medications Current Medications Medications Dose Ordered Sig/Justino Route Start Time Stop Time Status Last Admin Dose Admin Sodium Chloride 10 ml Q8HR IV 02/15/24 22:00 02/26/24 06:31 10 ML Ondansetron HCl 4 mg Q4HP PRN IV 02/15/24 21:15 02/26/24 06:28 4 MG Docusate Sodium 100 mg BIDPRN PRN PO 02/15/24 21:15 02/21/24 18:34 100 MG Acetaminophen 650 mg Q6HP PRN PO 02/15/24 21:15 Vancomycin HCl 0 ml @ 0 mls/hr UD IV 02/15/24 22:45 UNV Nitroglycerin 0.4 mg Q5MINP PRN SL 02/16/24 05:45 Insulin Glargine 12 units DAILY SC 02/16/24 10:00 02/19/24 10:07 12 UNITS Insulin Human Regular ACHS SC 02/16/24 07:00 02/26/24 06:34 4 UNITS Dextrose 50 ml UD PRN IV 02/16/24 03:00 Carvedilol 3.125 mg BID PO 02/16/24 10:00 02/25/24 23:01 3.125 MG Pantoprazole Sodium 40 mg DAILY@0600 PO 02/16/24 06:15 02/26/24 06:30 40 MG Atorvastatin Calcium 10 mg HS PO 02/16/24 22:00 02/25/24 23:01 10 MG Diagnostic Test (Pha) 1 strip ACHS 02/16/24 07:00 02/26/24 06:38 1 STRIP Hydromorphone HCl 1 mg Q4HP PRN IV 02/17/24 15:15 02/26/24 06:30 1 MG Metoclopramide HCl 10 mg Q8HPRN PRN IV 02/21/24 16:45 02/25/24 22:22 10 MG Nystatin 5 ml QID MT 02/22/24 12:00 02/26/24 06:31 5 ML Amino Acids 0 ml @ 0 mls/hr PER PHARMACY IV 02/23/24 11:45 Doxycycline Monohydrate 100 mg Q12HR PO 02/23/24 22:00 02/25/24 23:00 100 MG Amino Acids/ Electrolytes/ Dextrose 1,000 ml @ 41 mls/hr DAILY@2200 IV 02/23/24 22:00 02/25/24 23:03 41 MLS/HR Enoxaparin Sodium 50 mg Q12HR SC 02/23/24 22:00 02/25/24 23:02 50 MG objective HEAD AND NECK: Unremarkable. No neck nodes or masses. Conjunctiva: Unremarkable. No mucosal hemorrhage. CHEST: Chest wall, no tenderness. LUNGS: Clear. CARDIOVASCULAR: Regular sinus rhythm. No murmurs or gallops. ABDOMEN: No organomegaly, tenderness or ascites. Bowel sounds present. LYMPHATICS: No significant lymphadenopathy. SKIN: Unremarkable for any petechiae, purpura, or ecchymosis. Psych: No abnormalities Available data reviewed Bilateral mastectomies and have some seroma on both sides and on the left side she has a drain laboratory and microbiology Laboratory Tests 02/22/24 05:34 Test 02/26/24 08:52 Range/Units Serum Glucose Pending Assessment/Plan 1. Right breast cancer status post bilateral mastectomy and right axillary lymph node sampling in December 27 and May 05 [facility]. Lymph nodes negative 2. Left mastectomy abscess and has a drain 3. Diabetes 4. Paraplegia 5. 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 Colostomy and ileal conduit 8. Weight loss of 50 lb and has persistent nausea 9. The CT of the abdomen showing a small pancreatic mass Plan: The patient is waiting for EUS after transfer to higher level care She will follow-up with me as an outpatient and will try to get her Oncotype report She continue taking her aromatase inhibitor as an outpatient Dietary Evaluation Review Comments: Suggested Theo BID for wound healing Expected Outcomes/Goals: Gradual healed wounds, gradual weight loss and controlled DM Plan discussed with: Patient GRACIELA TAMAYO MD Feb 26, 2024 09:31
[2024-02-26 09:32] LABS: Alkaline Phosphatase 94 U/L (46-116); Anion Gap 8 (5-15); Aspartate Aminotransferase 21 U/L (13-40); BUN/Creatinine Ratio 35.2 (10.0-20.0); Blood Urea Nitrogen 19 mg/dL (9-23); Carbon Dioxide 25 mmol/L (20-31); Magnesium 1.6 mg/dL (1.6-2.6); Phosphorus 2.7 mg/dL (2.4-5.1); Potassium 4.3 mmol/L (3.5-5.1); Sodium 143 mmol/L (136-145)
[2024-02-26 09:35] LABS: Alanine Aminotransferase < 9 U/L (7-40); Bilirubin, Total 0.2 mg/dL (0.2-1.0); Calcium 8.3 mg/dL (8.7-10.4); Chloride 110 mmol/L (98-107); Glucose 156 mg/dL (74-106)
[2024-02-26 09:36] LABS: Albumin 2.6 g/dL (3.2-4.8); Total Protein 4.8 g/dL (5.7-8.2)
--- NOTE | 2024-02-26 11:20 | DVHPN2 ---
Subjective Patient reports that her oral intake has improved. Also reports that her nausea also has improved. Reviewed: Care Plan, H&P, Labs, Medications, Previous Orders, Radiology Changes from previous H/P or p: Changes General: Per HPI Objective Vitals Vital Signs Date Time Temp Pulse Resp B/P (MAP) Pulse Ox O2 Delivery O2 Flow Rate FiO2 02/26/24 09:00 98.4 79 18 109/39 (62) 95 98.4 Intake/Output Intake and Output 02/26/24 07:00 Intake Total 2237 ml Output Total 1650 ml Balance 587 ml Intake Oral 1640 ml IV Total 597 ml Output Urine Total 1600 ml Drainage Total 50 ml # Bowel Movements 1 General Appearance: Alert, Oriented X3, Cooperative, No acute distress HEENT: Atraumatic, PERRLA, EOMI, Mucous membr. moist/pink Neck: Supple Chest/Breasts: Discharge, Lesions, Other (IR drain left to abscess sign on chest. Wound dehiscence noted.) Cardiovascular: Regular rate, Normal S1, Normal S2, No murmurs, Gallops, Rubs Abdomen: Normal bowel sounds, Soft, No tenderness Musculoskeletal: Normal sensory function, Normal motor function Neuro: Cranial nerves 3-12 NL Psych/Mental Status: Mood NL Medications Current Medications Medications Dose Ordered Sig/Justino Route Start Time Stop Time Status Last Admin Dose Admin Sodium Chloride 10 ml Q8HR IV 02/15/24 22:00 02/26/24 06:31 10 ML Ondansetron HCl 4 mg Q4HP PRN IV 02/15/24 21:15 02/26/24 06:28 4 MG Docusate Sodium 100 mg BIDPRN PRN PO 02/15/24 21:15 02/21/24 18:34 100 MG Acetaminophen 650 mg Q6HP PRN PO 02/15/24 21:15 Vancomycin HCl 0 ml @ 0 mls/hr UD IV 02/15/24 22:45 UNV Nitroglycerin 0.4 mg Q5MINP PRN SL 02/16/24 05:45 Insulin Glargine 12 units DAILY SC 02/16/24 10:00 02/19/24 10:07 12 UNITS Insulin Human Regular ACHS SC 02/16/24 07:00 02/26/24 06:34 4 UNITS Dextrose 50 ml UD PRN IV 02/16/24 03:00 Carvedilol 3.125 mg BID PO 02/16/24 10:00 02/25/24 23:01 3.125 MG Pantoprazole Sodium 40 mg DAILY@0600 PO 02/16/24 06:15 02/26/24 06:30 40 MG Atorvastatin Calcium 10 mg HS PO 02/16/24 22:00 02/25/24 23:01 10 MG Diagnostic Test (Pha) 1 strip ACHS 02/16/24 07:00 02/26/24 06:38 1 STRIP Hydromorphone HCl 1 mg Q4HP PRN IV 02/17/24 15:15 02/26/24 06:30 1 MG Metoclopramide HCl 10 mg Q8HPRN PRN IV 02/21/24 16:45 02/25/24 22:22 10 MG Nystatin 5 ml QID MT 02/22/24 12:00 02/26/24 06:31 5 ML Amino Acids 0 ml @ 0 mls/hr PER PHARMACY IV 02/23/24 11:45 Doxycycline Monohydrate 100 mg Q12HR PO 02/23/24 22:00 02/25/24 23:00 100 MG Amino Acids/ Electrolytes/ Dextrose 1,000 ml @ 41 mls/hr DAILY@2200 IV 02/23/24 22:00 02/25/24 23:03 41 MLS/HR Enoxaparin Sodium 50 mg Q12HR SC 02/23/24 22:00 02/25/24 23:02 50 MG Laboratory Results Laboratory Tests 02/26/24 08:52 Chemistry Test 02/26/24 08:52 Albumin 2.6 g/dL (3.2-4.8) L Calcium Level 8.3 mg/dL (8.7-10.4) L Magnesium Level 1.6 mg/dL (1.6-2.6) Phosphorus Level 2.7 mg/dL (2.4-5.1) Total Protein 4.8 g/dL (5.7-8.2) L LFT Test 02/26/24 08:52 Alanine Aminotransferase (ALT) < 9 U/L (7-40) Alkaline Phosphatase 94 U/L (46-116) Aspartate Amino Transferase (AST) 21 U/L (13-40) Total Bilirubin 0.2 mg/dL (0.2-1.0) Urinalysis Test 02/16/24 09:00 Urine Color Yellow (Yellow) Urine Clarity Cloudy (Clear) H Urine pH 7.5 (5.0-9.0) Urine Specific [place] 1.010 (1.001-1.035) Urine Protein 1+ (Negative) H Urine Ketones Negative (Negative) Urine Blood 3+ /uL (Negative) H Urine Nitrite Negative (Negative) Urine Bilirubin Negative (Negative) Urine Urobilinogen Normal mg/dL (Negative) Urine Leukocyte Esterase 3+ /uL (Negative) Urine RBC 131 /hpf (0 - 4) Urine WBC 125 /hpf (0 - 5) Urine WBC Clumps Present /hpf (None Seen) Urine Squamous Epithelial Cells Few /hpf (<5) Urine Bacteria Many /hpf (None Seen) H Urine Glucose Normal mg/dL (Normal) Microbiology Microbiology Date/Time Source Procedure Growth Status 02/19/24 12:45 Aspirate Gram Stain - Final Complete 02/19/24 12:45 Aspirate Body Fluid Culture - Final Complete 02/15/24 14:45 Blood Blood Culture - Final NO GROWTH AFTER 5 DAYS OF INCUBATION. Complete Labs and/or images reviewed: Labs reviewed by me, Image(s) reviewed by me Assessment/Plan Assessment/Plan Impression: -status post bilateral mastectomy with wound dehiscence and abscess formation -breast cancer -status post ileal conduit -bladder outlet obstruction -pancreatic mass, rule out pancreatic cancer -intractable nausea and vomiting -primary hypertension -history of PE -dyslipidemia -diabetes mellitus -bilateral lower extremity amputations -hypomagnesemia Plan: Events: Attempts have been made to transfer patient to higher level care for EUS and fine-needle aspiration of pancreatic mass. Patient is stable at this point. She does report having an appointment with her PCP at [facility] next week. Patient will be weaned off of Clinimix today given her oral intake has improved. Social service consultation for DC planning tomorrow with home health services and reestablishment with patient was [facility] caregiver. Patient was instructed to follow up with her PCP once discharged for outpatient EUS with pancreatic biopsy. Patient will also follow up with Oncology as well as Interventional Radiology for assessment of pigtail drain, possible removal -MRI of the brain: Reviewed -nystatin swish and swallow -continue doxycycline -magnesium replacement -continue antihypertensives -regular insulin sliding scale -oncology consultation: Recommendations reviewed. CA 19-9: 40 -repeat labs in a.m. -start Clinimix -social service consultation to transfer to higher level of care Total time spent with patient discussing and formulating plan of care: 35 minutes. Total time spent with patient and family regarding advance care plannin minutes. This medical document was created using an electronic medical record system with [employer] dictation system. Although this document has been carefully reviewed, there may still be some phonetic and typographical errors. These areas are purely typographical due to imperfections of the software programs, and do not reflect any compromise in the patient's medical care. Plan discussed with: Patient, Other (Rn) My Orders Orders - HALLIE MACIEL NP Procedure Category Date Status Time Clinimix Per Pharmacy JOSE ARMANDO 02/25/24 In Process 22:00 Nutritional PHA 02/26/24 Verified Supplements (Glucerna 12:00 * [employer] CONS 02/26/24 Verified Consult Date of Service: Feb 26, 2024 Billing Provider: HALLIE MACIEL NP Common Visit Codes: [id number] INP/OBS CARE(HIGH) Secondary Visit Codes: [id number] CARE PLAN 30 MINUTES HALLIE MACIEL NP Feb 26, 2024 11:20
[2024-02-26] MEDS: Glucerna Carbsteady SHAKE Chocolate 8oz PO SCH (12:00)
[2024-02-26 12:52] LABS: Basophils # (auto) 0 10 ^3/uL (0-0.2); Basophils % (auto) 0.6 % (0.0-2.0); Eosinophils # (auto) 0.1 10 ^3/uL (0-0.8); Eosinophils % (auto) 2.7 % (0.0-7.0); Hematocrit 37.4 % (36.0-46.0); Hemoglobin 11.9 g/dL (12.2-16.2); Lymphocytes # (auto) 1.4 10 ^3/uL (0.4-5.4); Lymphocytes % (auto) 26.4 % (10.0-50.0); Mean Corpuscular Hemoglobin 27.7 pg (28.0-32.0); Mean Corpuscular Hgb Conc. 31.9 g/dL (32.0-36.0); Mean Corpuscular Volume 86.8 fL (80.0-100.0); Monocytes # (auto) 0.4 10 ^3/uL (0-1.3); Neutrophils # (auto) 3.2 10 ^3/uL (1.6-8.6); Neutrophils % (auto) 62.3 % (37.0-80.0); Nucleated Red Blood Cells % 0.3 %; Platelet Count (auto) 124 10^3/uL (140-450); Red Blood Cells 4.31 10^6/uL (4.0-5.20); Red Cell Distribution Width 15.7 % (11.8-14.3); White Blood Cell 5.2 10^3/uL (4.4-10.8)
[2024-02-26 13:00] VITALS: BP 144/49; PULSE 86; RESP 17; TEMP 98.1; O2SAT 95
[2024-02-26 17:08] VITALS: BP 140/49; PULSE 74; RESP 16; TEMP 97.9; O2SAT 94
[2024-02-26 21:00] VITALS: BP 111/53; PULSE 96; RESP 20; TEMP 98.8; O2SAT 97
[2024-02-27 01:00] VITALS: BP 114/74; PULSE 98; RESP 18; TEMP 98.6; O2SAT 99
[2024-02-27 05:00] VITALS: BP 115/74; PULSE 96; RESP 18; TEMP 98; O2SAT 99
[2024-02-27] MEDS: METOCLOPRAMIDE HCL 5MG/ml INJ 2ml VIAL ONE (07:46)
[2024-02-27] MEDS: ONDANSETRON HCL 4 MG/2 ML VIAL ONE (07:46)
[2024-02-27] MEDS: InsuLIN REG 1unit/0.01ml Soln (100units/ml) ONE (07:46)
[2024-02-27] MEDS: GADOTERATE MEG 10 MMOL/20ml INJ (0.5MMOL/ml) IV ONE (07:47)
[2024-02-27 08:41] VITALS: BP 122/43; PULSE 77; RESP 20; TEMP 98.1; O2SAT 91
[2024-02-27] MEDS ORDERED: METO5TAB67 PO (10:48)
[2024-02-27] MEDS ORDERED: DOX100T PO (10:48)
[2024-02-27] MEDS ORDERED: NYS5LQ MT (10:48)
--- NOTE | 2024-02-27 11:06 | DVHDS2 ---
Discharge Summary Date of Admission Feb 15, 2024 at 21:06 Date of Discharge: Feb 27, 2024 Admitting Diagnosis Postop wound/cellulitis Labs/Diagnostic Data: Laboratory Results Test 02/26/24 20:54 02/26/24 12:30 02/26/24 08:52 02/25/24 08:55 POC Glucose 138 mg/dl (70-106) White Blood Count 5.2 10^3/uL (4.4-10.8) Red Blood Count 4.31 10^6/uL (4.0-5.20) Hemoglobin 11.9 g/dL (12.2-16.2) Hematocrit 37.4 % (36.0-46.0) Mean Corpuscular Volume 86.8 fL (80.0-100.0) Mean Corpuscular Hemoglobin 27.7 pg (28.0-32.0) Mean Corpuscular Hemoglobin Concent 31.9 g/dL (32.0-36.0) Red Cell Distribution Width 15.7 % (11.8-14.3) Platelet Count 124 10^3/uL (140-450) Mean Platelet Volume 7.7 fL (6.9-10.8) Neutrophils (%) (Auto) 62.3 % (37.0-80.0) Lymphocytes (%) (Auto) 26.4 % (10.0-50.0) Monocytes (%) (Auto) 8.0 % (0.0-12.0) Eosinophils (%) (Auto) 2.7 % (0.0-7.0) Basophils (%) (Auto) 0.6 % (0.0-2.0) Neutrophils # (Auto) 3.2 10 ^3/uL (1.6-8.6) Lymphocytes # (Auto) 1.4 10 ^3/uL (0.4-5.4) Monocytes # (Auto) 0.4 10 ^3/uL (0-1.3) Eosinophils # (Auto) 0.1 10 ^3/uL (0-0.8) Basophils # (Auto) 0 10 ^3/uL (0-0.2) Nucleated Red Blood Cells 0.3 % Sodium Level 143 mmol/L (136-145) Potassium Level 4.3 mmol/L (3.5-5.1) Chloride Level 110 mmol/L (98-107) Carbon Dioxide Level 25 mmol/L (20-31) Anion Gap 8 (5-15) Blood Urea Nitrogen 19 mg/dL (9-23) Creatinine 0.54 mg/dL (0.550-1.02) Glomerular Filtration Rate Calc 102 mL/min (>90) BUN/Creatinine Ratio 35.2 (10.0-20.0) Serum Glucose 156 mg/dL (74-106) Calcium Level 8.3 mg/dL (8.7-10.4) Phosphorus Level 2.7 mg/dL (2.4-5.1) Magnesium Level 1.6 mg/dL (1.6-2.6) Total Bilirubin 0.2 mg/dL (0.2-1.0) Aspartate Amino Transferase (AST) 21 U/L (13-40) Alanine Aminotransferase (ALT) < 9 U/L (7-40) Alkaline Phosphatase 94 U/L (46-116) Total Protein 4.8 g/dL (5.7-8.2) Albumin 2.6 g/dL (3.2-4.8) Triglycerides Level 52 mg/dL (< 150) Test 02/22/24 05:34 02/21/24 19:20 02/16/24 11:10 02/16/24 09:00 Lipase 20 U/L (12-53) CA 19-9 Antigen 40 U/mL (0-35) Lactic Acid Level 0.8 mmol/L (0.4-2.0) Urine Color Yellow (Yellow) Urine Clarity Cloudy (Clear) Urine pH 7.5 (5.0-9.0) Urine Specific Price 1.010 (1.001-1.035) Urine Protein 1+ (Negative) Urine Ketones Negative (Negative) Urine Blood 3+ /uL (Negative) Urine Nitrite Negative (Negative) Urine Bilirubin Negative (Negative) Urine Urobilinogen Normal mg/dL (Negative) Urine Leukocyte Esterase 3+ /uL (Negative) Urine RBC 131 /hpf (0 - 4) Urine WBC 125 /hpf (0 - 5) Urine WBC Clumps Present /hpf (None Seen) Urine Squamous Epithelial Cells Few /hpf (<5) Urine Bacteria Many /hpf (None Seen) Urine Glucose Normal mg/dL (Normal) Urine Opiates Screen Neg (NEGATIVE) Urine Fentanyl Screen Pos (NEGATIVE) Urine Barbiturates Screen Neg (NEGATIVE) Urine Phencyclidine Screen Neg (NEGATIVE) Urine Amphetamines Screen Neg (NEGATIVE) Urine Benzodiazepines Screen Neg (NEGATIVE) Urine Cocaine Screen Neg (NEGATIVE) Urine Cannabinoids Screen Pos (NEGATIVE) Test 02/16/24 04:21 02/15/24 21:33 Prothrombin Time 14.1 sec (9.3-11.8) Prothrombin Time INR 1.36 (0.9-1.15) Activated Partial Thromboplast Time 33.3 SEC (24.5-34.5) Hemoglobin A1c 6.9 % A1C (<5.7) Cholesterol Level 71 mg/dL (< 200) LDL Cholesterol 37 mg/dL (< 100) HDL Cholesterol 18 mg/dL (40-59) Vitamin B12 Level 620 pg/mL (211-911) Vitamin D 25-Hydroxy 16.3 ng/mL (30.0-100) D-Dimer, Quantitative 0.59 mg/L FEU (0.0-0.49) Thyroid Stimulating Hormone (TSH) 0.89 uIU/mL (0.55-4.78) Plasma/Serum Blood Alcohol 3.8 mg/dL (<10) Other Laboratory Tests 02/26/24 12:30 02/26/24 08:52 Brief Hx & Hospital Course: History of Present Illness Patient is 63 years old female with past medical history of hypertension, diabetes mellitus type 2, hyperlipidemia, paraplegia, pulmonary embolism on Eliquis, heart murmur, carcinoma of the right breast, status post bilateral mastectomy with lymphadenectomy, history of syringomyelia with cervical 5 and thoracic 9 and 10 cyst came with a complaint of bilateral breast wound discharge. As per patient she had bilateral mastectomy due to carcinoma of the right breast with lymphadenectomy at [facility] on 01/04/2024. Following surgery she had 2 drainage of the right breast and 1 drinks in the left. Patient reported lately the left breast started having more swollen, warmth, wheezing versus for last several days and the right 1 was with mild wheezing but no acute swelling for last 2 days. Patient also reported fever, 101 F for last 3 days with chills and rigors. Patient denied any chest pain, shortness of breath, dysuria, dysarthria or change in vision. Patient reported that Dr. Jon brooke was her surgeon and she does not want to follow up with her surgeon at [place] that is why she came to [facility]. Initial lab workup revealed WBC 6.5, hemoglobin 12.6, sodium 143, potassium 3.9, serum creatinine 0.62, serum glucose 176, lactic acid 2, magnesium 1.6 TSH 0.89, total bilirubin/AST/ALT/alkaline phosphatase within normal limit.,: 3.8, D-dimer 0.59. CXR-Small right-sided pleural effusion with right lower lung zone atelectasis. Course of hospitalization: Surgical consultation was placed. Recommendations were made for Interventional Radiology to place drain and abscess. Patient was status post pigtail placement to left mastectomy site abscess. Patient was started on antibiotic therapy. While in the hospital patient had persistent nausea and vomiting, with poor oral intake. GI consultation was obtained. Patient underwent upper endoscopy with the findings of esophageal Arianna. Patient was started on nystatin swish and swallow. Patient was now tolerating oral intake, with Clinimix being weaned off. Reassessment was made by Interventional Radiology, for which the drain was removed given documented output. Patient was white blood cell count was remained normal. CT scan was performed of the abdomen and pelvis which did reveal a pancreatic mass which was appreciated on the CT scan of the chest. This was compared with previous CT scan obtained from [facility]. With the noted increase in size of the mass, attempts were made to transfer patient to higher level care for EUS with possible biopsy, after consultation was made with Oncology as well as Gastroenterology. The patient has remained hemodynamically stable. At this time no facility has accepted the patient. Given the stability of the patient, she has been cleared to have this possible biopsy performed as an outpatient. She reports that she has a follow up appointment with her PCP at [facility] in the next two weeks, for which she was told to have a referral for interventional gastroenterology to before biopsy. She was also instructed to follow up with her primary surgeon that performed her bilateral mastectomy. She will be discharged home on home health services for wound care, assistance with medications. She was agreeable with discharge plan. All questions answered. Physical examination General: Alert and Oriented x3. No acute distress. Well-nourished. Obese Eyes: EOMI. Anicteric. HENT: Moist mucous membranes. Lungs: Clear to auscultation bilaterally. No accessory muscle use. Chest with noted bilateral mastectomy surgical wound healing. Cardiovascular: Regular rate and rhythm. No murmur. No JVD. Abdomen: Soft, non-tender and non-distended. No palpable masses. Extremities: No edema. Non-tender. Bilateral lower extremity amputation Skin: No rashes or lesions. Warm. Neurologic: No focal neurological deficits. CN II-XII grossly intact, but not individually tested. Psychiatric: Cooperative. Appropriate mood and affect. Total time spent with patient discussing and formulating plan of care: 35 minutes. This medical document was created using an electronic medical record system with [employer] dictation system. Although this document has been carefully reviewed, there may still be some phonetic and typographical errors. These areas are purely typographical due to imperfections of the software programs, and do not reflect any compromise in the patient's medical care. Consults/Reason for consult General surgery: Surgical wound infection Interventional Radiology: Abscess drainage Gastroenterology: Intractable nausea and vomiting Oncology: Pancreatic mass with recent diagnosis breast cancer Operations or Procedures 02/19/2024: IR placement of pigtail in chest abscess 02/22/2024: EGD Condition at Discharge: Poor Final Diagnosis/Problems List Postop bilateral mastectomy cellulitis/abscess Secondary Diagnosis: -status post bilateral mastectomy with wound dehiscence and abscess formation -breast cancer -status post ileal conduit -bladder outlet obstruction -pancreatic mass, rule out pancreatic cancer -intractable nausea and vomiting -primary hypertension -history of PE -dyslipidemia -diabetes mellitus -bilateral lower extremity amputations -hypomagnesemia Discharge Disposition: Home with Health Services Discharge Instruct/Medications Follow Up/Referral: Follow up with surgeon that performed bilateral mastectomy Follow up with PCP at [facility] at established appointment and obtain referral for outpatient EUS with biopsy Follow up with Dr. Rae in 2-3 weeks Medications: Doxycycline 100 mg p.o. b.i.d. times 10 days Nystatin 5 mL swish and swallow a.c. HS x7 days Reglan 5 mg p.o. a.c. HS times 7 days Continue home medications 36 Discharge Statement: "Patient was advised to return to the ER or call 911 if any headaches, dizziness, shortness of breath, chest pain, abdominal pain, bleeding, fevers, or worsening of medical condition. Patient was counseled about treatment plan, medications, possible side effects, patientverbalized understanding. All questions were answered to the best of my ability. This discharge took greater then 30 minutes in planning, reviewing documentation, counseling the patient, and discussing with other team members." ASSESSMENT ASSESSMENT Assessment Date of Service: Feb 27, 2024 Billing Provider: HALLIE MACIEL NP Common Visit Codes: 91345-FYY/OBS DISCH DAY >30min HALLIE MACIEL NP Feb 27, 2024 11:06
[2024-02-27 12:51] VITALS: BP 125/42; PULSE 93; RESP 20; TEMP 98.2; O2SAT 94
[2024-02-27 13:03] VITALS: BP 128/56; PULSE 87
--- NOTE | 2024-02-27 15:52 | DVHPN2 ---
Progress Note - Dictate Date Seen: Feb 27, 2024 Has the PT tested + for MRSA If YES, has PT been informed?: Yes Medical Necessity Reason Pt with a Central, PICC or Fol: No Subjective Patient is resting comfortably No new complaints Pt underwent wound care CA 19-9 mildly elevated to 40; lipase level is normal EGD findings reviewed with candidal esophagitis and mild gastritis Continue nystatin and Protonix vital signs Vital Sign Date Time Temp Pulse Resp B/P (MAP) Pulse Ox O2 Delivery O2 Flow Rate FiO2 02/27/24 13:09 87 135/40 02/27/24 12:51 98.2 20 94 98.2 Total Intake and Output 02/26/24 02/26/24 02/27/24 15:00 23:00 07:00 Intake Total 800 ml 600 ml Output Total 1925 ml 650 ml Balance -1125 ml -50 ml medications Current Medications Medications Dose Ordered Sig/Justino Route Start Time Stop Time Status Last Admin Dose Admin Sodium Chloride 10 ml Q8HR IV 02/15/24 22:00 02/27/24 14:08 10 ML Ondansetron HCl 4 mg Q4HP PRN IV 02/15/24 21:15 02/27/24 12:17 4 MG Docusate Sodium 100 mg BIDPRN PRN PO 02/15/24 21:15 02/26/24 11:50 100 MG Acetaminophen 650 mg Q6HP PRN PO 02/15/24 21:15 Vancomycin HCl 0 ml @ 0 mls/hr UD IV 02/15/24 22:45 UNV Nitroglycerin 0.4 mg Q5MINP PRN SL 02/16/24 05:45 Insulin Glargine 12 units DAILY SC 02/16/24 10:00 02/19/24 10:07 12 UNITS Insulin Human Regular ACHS SC 02/16/24 07:00 02/27/24 12:27 3 UNITS Dextrose 50 ml UD PRN IV 02/16/24 03:00 Carvedilol 3.125 mg BID PO 02/16/24 10:00 02/27/24 12:09 3.125 MG Pantoprazole Sodium 40 mg DAILY@0600 PO 02/16/24 06:15 02/27/24 07:01 40 MG Atorvastatin Calcium 10 mg HS PO 02/16/24 22:00 02/26/24 21:59 10 MG Diagnostic Test (Pha) 1 strip ACHS 02/16/24 07:00 02/27/24 11:30 1 STRIP Hydromorphone HCl 1 mg Q4HP PRN IV 02/17/24 15:15 02/27/24 12:21 1 MG Metoclopramide HCl 10 mg Q8HPRN PRN IV 02/21/24 16:45 02/27/24 07:01 10 MG Nystatin 5 ml QID MT 02/22/24 12:00 02/27/24 07:01 5 ML Doxycycline Monohydrate 100 mg Q12HR PO 02/23/24 22:00 02/27/24 12:09 100 MG Enoxaparin Sodium 50 mg Q12HR SC 02/23/24 22:00 02/27/24 12:25 50 MG Enteral Nutritional Formula 240 ml TIDWM PO 02/26/24 12:00 02/27/24 12:29 240 ML objective General Appearance: Alert, Oriented X3, Cooperative, No acute distress HEENT: Atraumatic, PERRLA, EOMI, Mucous membr. moist/pink Neck: Supple Chest/Breasts: Discharge, Lesions, Other (IR drain left to abscess sign on chest. Wound dehiscence noted.) Cardiovascular: Regular rate, Normal S1, Normal S2, No murmurs, Gallops, Rubs Abdomen: Normal bowel sounds, Soft, No tenderness; patient has ileostomy and an ileal conduit because of history of large sacral decub Musculoskeletal: Normal sensory function, Normal motor function Neuro: Cranial nerves 3-12 NL Psych/Mental Status: Mood NL laboratory and microbiology Laboratory Tests 02/26/24 12:30 02/26/24 08:52 Test 02/26/24 08:52 Range/Units Serum Glucose 156 H 74-106 mg/dL Problems(with codes): (1) Nausea and vomiting (2) Cellulitis (3) Arianna esophagitis (4) Abnormal finding on GI tract imaging (5) Pancreatic mass Prognosis Plan Discharge planning is in progress Patient will arrange outpatient endoscopic ultrasound with FNA of the pancreatic mass in the near future Patient has been treated with Protonix and nystatin Dietary Evaluation Review Comments: Suggested Theo BID for wound healing Expected Outcomes/Goals: Gradual healed wounds, gradual weight loss and controlled DM Plan discussed with: Patient JASKARAN VILLA MD Feb 27, 2024 15:52
[2024-02-27 16:46] VITALS: BP 126/34; PULSE 83; RESP 20; TEMP 98.2; O2SAT 96
== END 2024-02-27 17:46 | disposition home health service (06) | DRG 920 ==
LOC: ER 13:48 → TELE 21:06 → OVERFLOW 21:06 → UNDOADMOB 21:06 → ER 21:11 → WEST WING 02-16 16:00
PROVIDERS: ATTEND Nurse Practitioner Acute Care
PROC: 05HF33Z Insertion of Infusion Device into Left Cephalic Vein, Percutaneous Approach (ICD-10-PCS; 2024-02-17)
PROC: B54NZZA Ultrasonography of Left Upper Extremity Veins, Guidance (ICD-10-PCS; 2024-02-17)
PROC: 0H9U3ZZ Drainage of Left Breast, Percutaneous Approach (ICD-10-PCS; 2024-02-19)
PROC: 0DB68ZX Excision of Stomach, Via Natural or Artificial Opening Endoscopic, Diagnostic (ICD-10-PCS; 2024-02-22)
PROC: 0DB58ZX Excision of Esophagus, Via Natural or Artificial Opening Endoscopic, Diagnostic (ICD-10-PCS; 2024-02-22)
PROC: 0DB98ZX Excision of Duodenum, Via Natural or Artificial Opening Endoscopic, Diagnostic (ICD-10-PCS; principal; 2024-02-22 09:21)
PROC: 05HA33Z Insertion of Infusion Device into Left Brachial Vein, Percutaneous Approach (ICD-10-PCS; 2024-02-23)
PROC: B54MZZA Ultrasonography of Right Upper Extremity Veins, Guidance (ICD-10-PCS; 2024-02-23)
DX: T81.30XA Disruption of wound, unspecified, initial encounter (principal); B37.81 Candidal esophagitis; E87.0 Hyperosmolality and hypernatremia; G82.20 Paraplegia, unspecified; G95.0 Syringomyelia and syringobulbia; T81.41XA Infection following a procedure, superficial incisional surgical site, initial encounter; N13.2 Hydronephrosis with renal and ureteral calculous obstruction; N17.9 Acute kidney failure, unspecified; J90 Pleural effusion, not elsewhere classified; J98.11 Atelectasis; E11.9 Type 2 diabetes mellitus without complications; E78.5 Hyperlipidemia, unspecified; I10 Essential (primary) hypertension; K80.20 Calculus of gallbladder without cholecystitis without obstruction; K86.9 Disease of pancreas, unspecified; N32.0 Bladder-neck obstruction; K44.9 Diaphragmatic hernia without obstruction or gangrene; K29.70 Gastritis, unspecified, without bleeding; K20.90 Esophagitis, unspecified without bleeding; N21.0 Calculus in bladder; E83.42 Hypomagnesemia; Y83.8 Other surgical procedures as the cause of abnormal reaction of the patient, or of later complication, without mention of misadventure at the time of the procedure; G40.909 Epilepsy, unspecified, not intractable, without status epilepticus; E87.6 Hypokalemia; N32.89 Other specified disorders of bladder; Z89.511 Acquired absence of right leg below knee; Z89.612 Acquired absence of left leg above knee; Z86.711 Personal history of pulmonary embolism; Z90.13 Acquired absence of bilateral breasts and nipples; Z88.5 Allergy status to narcotic agent; Z88.0 Allergy status to penicillin; Z88.8 Allergy status to other drugs, medicaments and biological substances; Y92.89 Other specified places as the place of occurrence of the external cause; Z79.899 Other long term (current) drug therapy; Z79.4 Long term (current) use of insulin; Z79.01 Long term (current) use of anticoagulants; Z93.6 Other artificial openings of urinary tract status; Z90.49 Acquired absence of other specified parts of digestive tract; Z93.3 Colostomy status; Z85.3 Personal history of malignant neoplasm of breast; Z85.848 Personal history of malignant neoplasm of other parts of nervous tissue
CPT/HCPCS: 36415; 70553; 71045; 71260; 74177; 75989; 76604; 80048; 80053; 80061; 80307; 80320; 81001; 82306; 82607; 82962; 83036; 83605; 83690; 83735; 84100; 84443; 84478; 85025; 85379; 85610; 85730; 86301; 87040; 87205; 93971; C1729; G0378; J1815; J2003; J2250; J2405; J2543; J2704; J3490